=== PATIENT | male | born 1935 | race Caucasian/White ===

== ENCOUNTER → 2018-07-23 | Outpatient (CLI) | payer MEDICARE ==
--- NOTE | 2018-07-23 13:38 | Diagnostic Imaging Report ---
INDICATION: COPD. Dyspnea. Shortness of air. COMPARISON: None. FINDINGS: Frontal and lateral radiographic views of the chest are obtained and show mild cardiomegaly. Pulmonary vasculature is also mildly prominent. There is also diffuse coarse prominence of interstitium. No focal alveolar consolidation is seen. There is no large effusion or pneumothorax. Bony structures show no gross acute abnormalities. IMPRESSION: 1. Diffuse coarse prominence of pulmonary interstitium. While findings could be on a chronic senescent basis, the presence of pulmonary vascular congestion and cardiomegaly also raise suspicion for potential interstitial pulmonary edema. Clinical correlation recommended. Dictated by: Dictated on workstation # [id number]
== END ==
LOC: RAD 12:42
PROVIDERS: ATTEND Family Medicine
DX: J44.9 Chronic obstructive pulmonary disease, unspecified (principal); I51.7 Cardiomegaly
CPT/HCPCS: 71046

== ENCOUNTER → 2018-07-30 | Outpatient (CLI) | payer MEDICARE ==
[~2018-07-30] VITALS: Ht 172.7 cm; Wt 101.2 kg
[~2018-07-30] MED LIST: CATHETER FLUSH 10 ML SYR IV PRN; REGADENOSON 0.4 MG/5 ML SYR (LEXISCAN) IV ONE
[2018-07-30 09:28] VITALS: BP 185/73
[2018-07-30 09:29] VITALS: BP 157/54
--- NOTE | 2018-07-30 14:56 | STRESS TEST ---
DATE OF SERVICE: 07/30/2018 RESTING AND POST REGADENOSON TECHNETIUM-99M TETROFOSMIN SPECT CT IMAGING ORDERING PHYSICIAN: Dr. Carney. PRIMARY PHYSICIAN: Dr. Arauz. CLINICAL DIAGNOSES: Shortness of breath, paroxysmal atrial fibrillation, palpitations. Baseline images were carried out after injection of 10.77 mCi of technetium-99m Tetrofosmin. This was followed by 0.4 mg regadenoson and 30.7 mCi technetium-99m Tetrofosmin for stress imaging. The electrocardiogram showed sinus rhythm at baseline. It did not change significantly with the regadenoson infusion. The patient noted mild shortness of breath following regadenoson infusion, which resolved in a few minutes. Overall, he tolerated the procedure well. Review of images at rest and following stress does not indicate any distinct perfusion defects consistent with significant myocardial ischemia or infarction. Gated images show normal global left ventricular systolic function with normal regional wall motion. Left ventricular ejection fraction is calculated to be 68%. Left ventricular end diastolic volume is 95 mL. TID is absent (1.1). CONCLUSIONS: 1. No evidence of any significant myocardial ischemia or infarction is seen. 2. Normal regional wall motion. 3. Normal global left ventricular systolic function with a calculated ejection fraction 68%. Job ID: [id number] DocumentID: [id number] Dictated Date: 07/30/2018 12:50:33 Television Cable Installer Date: 07/30/2018 14:55:56 Dictated By: MIMI CARNEY MD, MA, FACP, FACC,
== END ==
LOC: CARD 07:35
PROVIDERS: ATTEND Internal Medicine Cardiovascular Disease
DX: R06.02 Shortness of breath (principal); I48.0 Paroxysmal atrial fibrillation; R09.02 Hypoxemia; R00.2 Palpitations
CPT/HCPCS: 78452; 93017

== ENCOUNTER → 2018-07-30 | Outpatient (CLI) | payer MEDICARE ==
[2018-07-30 15:00] LABS: BUN/CREATININE RATIO 15; GFR ESTIMATED > 60
[2018-07-30 15:14] LABS: ABG BASE EXCESS 1.8 MMOL/L (-2.5-2.5); ABG OXYGEN SATURATION 93 % (94-100); ABG PCO2 43 MMHG (35-45); ABG PO2 66 MMHG (79-93); ABG TCO2 27.5 MMOL/L (21.0-31.0); ALLENS TEST POSITIVE; INSPIRED O2 3 L; PATIENT TEMP 98.6; VENTILATOR NO
== END ==
LOC: RT 14:27
PROVIDERS: ATTEND Nurse Practitioner Family
DX: I48.0 Paroxysmal atrial fibrillation (principal); J44.9 Chronic obstructive pulmonary disease, unspecified; R06.02 Shortness of breath; R09.02 Hypoxemia; E66.9 Obesity, unspecified
CPT/HCPCS: 36415; 36600; 82565; 82805; 84520

== ENCOUNTER → 2018-09-11 | Outpatient (CLI) | payer MEDICARE ==
[~2018-09-11] MED LIST changes: -CATHETER FLUSH 10 ML SYR IV PRN; +HOLD METFORMIN - RECEIVED CONTRAST 20 ML VIAL IV SCH; +IOHEXOL 350 MG/ML 100 ML (OMNIPAQUE 350) VIAL IV ONE; -REGADENOSON 0.4 MG/5 ML SYR (LEXISCAN) IV ONE; +RT-ALBUTEROL SULF 2.5 MG/3 ML PRE-MIX VIAL INH ONE
[2018-09-11 12:44] LABS: BUN/CREATININE RATIO 19; CREATININE SERUM 1.13 MG/DL (0.60-1.30); GFR ESTIMATED > 60
--- NOTE | 2018-09-11 17:50 | Diagnostic Imaging Report ---
PROCEDURE: CT chest with contrast only. TECHNIQUE: Multiple contiguous axial images were obtained through the chest after administration of intravenous contrast. Auto Exposure Controls were utilized during the CT exam to meet ALARA standards for radiation dose reduction. INDICATION: Pneumonia. COMPARISON: No priors. FINDINGS: Chronic interstitial changes in the lungs are present with subpleural cyst formation and scarring. No evidence for acute pneumonia superimposed. Septal thickening may reflect in addition to chronic disease an element of interstitial edema as the patient's heart is enlarged, and there is some prominence of the pulmonary vascularity. There is, however, no pleural or pericardial effusion. There is no pneumothorax. No mass or adenopathy. The upper abdomen shows a renal cyst on the left with no acute appearing abnormality. IMPRESSION: Chronic appearing fibrotic interstitial lung disease. Elements of edema superimposed not excluded with cardiomegaly and vascular congestion present. No mass, adenopathy, or effusion. Dictated by: Dictated on workstation # [id number]
== END ==
LOC: RAD 12:08
PROVIDERS: ATTEND Nurse Practitioner Family
DX: I48.0 Paroxysmal atrial fibrillation (principal); J44.9 Chronic obstructive pulmonary disease, unspecified; E66.9 Obesity, unspecified; I51.7 Cardiomegaly
CPT/HCPCS: 36415; 71260; 82565; 84520; 94060; 94726; 94729

== ENCOUNTER 2018-12-26 10:45 | Outpatient (RCR) | payer MEDICARE ==
[2018-10-29 10:45] VITALS: BP 140/70
[2018-10-29 11:50] VITALS: BP 140/62
[2018-10-31 10:45] VITALS: BP 154/60
[2018-10-31 11:41] VITALS: BP 125/50
[2018-11-05 10:30] VITALS: BP 144/58
[2018-11-05 11:35] VITALS: BP 130/62
[2018-11-07 10:30] VITALS: BP 143/78
[2018-11-07 11:30] VITALS: BP 137/60
[2018-11-12 10:40] VITALS: BP 120/62
[2018-11-12 11:37] VITALS: BP 160/60
[2018-11-14 10:37] VITALS: BP 142/60
[2018-11-14 11:45] VITALS: BP 128/58
[2018-11-19 10:45] VITALS: BP 155/60
[2018-11-19 11:42] VITALS: BP 140/60
[2018-11-21 10:15] VITALS: BP 150/60
[2018-11-21 11:20] VITALS: BP 150/70
[2018-11-26 10:45] VITALS: BP 142/70
[2018-11-26 11:45] VITALS: BP 150/60
[2018-11-28 10:30] VITALS: BP 124/56
[2018-11-28 11:40] VITALS: BP 137/60
[2018-12-03 10:40] VITALS: BP 160/60
[2018-12-03 11:30] VITALS: BP 120/56
[2018-12-10 10:45] VITALS: BP 160/60
[2018-12-10 12:00] VITALS: BP 140/70
[2018-12-12 10:50] VITALS: BP 150/40
[2018-12-12 11:58] VITALS: BP 170/60
[2018-12-17 10:43] VITALS: BP 160/72
[2018-12-17 11:45] VITALS: BP 136/56
[2018-12-19 10:40] VITALS: BP 150/40
[2018-12-19 11:40] VITALS: BP 143/60
[2018-12-24 10:45] VITALS: BP 150/70
[2018-12-24 12:00] VITALS: BP 150/50
[2018-12-26 10:45] VITALS: BP 160/70
[2018-12-26 11:46] VITALS: BP 158/60
[2018-12-31 10:40] VITALS: BP 160/60
[2018-12-31 11:45] VITALS: BP 158/50
[2019-01-02 10:40] VITALS: BP 150/60
[2019-01-02 11:45] VITALS: BP 130/60
[2019-01-07 10:45] VITALS: BP 150/60
[2019-01-07 12:00] VITALS: BP 140/60
== END 2019-01-05 | disposition home or self-care (01) ==
LOC: PULM 10:45
PROVIDERS: ATTEND Nurse Practitioner Family
DX: R94.2 Abnormal results of pulmonary function studies (principal); J98.4 Other disorders of lung; R91.8 Other nonspecific abnormal finding of lung field
CPT/HCPCS: 99211

== ENCOUNTER 2019-01-09 10:55 | Outpatient (RCR) | payer MEDICARE ==
[2019-01-09 10:45] VITALS: BP 140/60
[2019-01-09 11:40] VITALS: BP 132/63
== END 2019-04-09 | disposition home or self-care (01) ==
LOC: PULM 10:55
PROVIDERS: ATTEND Nurse Practitioner Family
DX: R94.2 Abnormal results of pulmonary function studies (principal); J98.4 Other disorders of lung; R91.8 Other nonspecific abnormal finding of lung field

== ENCOUNTER 2019-01-23 21:58 | Emergency (ER) | payer MEDICARE ==
[~2019-01-23] VITALS: Ht 172.7 cm; Wt 101.2 kg
--- NOTE | 2019-01-23 22:37 | ED General ---
General Stated Complaint: LOW HEART RATE Source of Information: Patient Exam Limitations: No Limitations History of Present Illness Date Seen by Provider: Jan 23, 2019 Time Seen by Provider: 22:34 Initial Comments To ER with reports of a fall. Patient fell earlier today striking the right side of his upper flank/low chest on something. He is not sure why he fell but denies any preceding dizziness or loss of consciousness. He overall feels fine with the exception of this posterior chest wall pain. He denies any shortness of breath that is out of the ordinary for him, does wear oxygen at 4 L at rest and 8 L with exertion due to emphysema. He is on Eliquis for a-fib. He did not hit his head and denies any neck pain. He is ambulatory into the emergency room without any extremity pain. In route to the hospital daughter noted the heart ra te to be low at about 44. Patient himself denies any complaints in regards to that, no lightheadedness syncope and no chest pain. Timing/Duration: 4-6 Hours Severity: Moderate Allergies and Home Medications Allergies Coded Allergies: No Known Allergies (Unverified Allergy, Unknown, 07/30/18) Patient Home Medication List Home Medication List Reviewed: Yes Review of Systems Review of Systems Constitutional: see HPI EENTM: see HPI Respiratory: see HPI Cardiovascular: see HPI Genitourinary: no symptoms reported Musculoskeletal: see HPI Skin: no symptoms reported Psychiatric/Neurological: No Symptoms Reported Hematologic/Lymphatic: No Symptoms Reported Past Komgxzh-Uozacd-Wyptle Hx Patient Social History Recent Foreign Travel: No Contact w/Someone Who Travel: No Physical Exam Vital Signs Vital Signs - First Documented 01/23/19 22:15 Temp 99.7 Pulse 53 Resp 18 B/P (MAP) 182/78 (112) Pulse Ox 97 Capillary Refill : Height, Weight, BMI Height: 5'8.00" Weight: 225lbs. 0.8oz. 101.544549br; 33.9 BMI Method: General Appearance: No Apparent Distress, WD/WN Eyes: Bilateral Eye Normal Inspection, Bilateral Eye PERRL, Bilateral Eye EOMI Neck: Full Range of Motion, Normal Inspection Respiratory: Chest Non Tender, Lungs Clear, Normal Breath Sounds, No Accessory Muscle Use, No Respiratory Distress, Other (there is no posterior or lateral chest wall tenderness to palpation or ecchymosis or abrasion in the area of pain.) Cardiovascular: Regular Rate, Rhythm, Normal Peripheral Pulses Gastrointestinal: Normal Bowel Sounds, Non Tender, Soft Extremity: Normal Capillary Refill, Normal Inspection Neurologic/Psychiatric: Alert, Oriented x3 Skin: Normal Color, Warm/Dry Progress/Results/Core Measures Suspected Sepsis SIRS Temperature: Pulse: Respiratory Rate: Blood Pressure / Mean: Results/Orders My Orders Orders - ARTEMIO CHAVARRIA APRN Ct Chest/Abdomen Wo (01/23/19 22:18) Vital Signs/I&O Capillary Refill : Departure Communication (Admissions) His chest wall pain is minimal at this time, he was offered pain medication but declined. Daughter still concerned about the heart rate which is about 48-52 atrial fibrillation. Discussed with her this was just an effect of the amiodarone, he is mentating well without chest pain shortness of breath or abnormal blood pressure and this was of no concern at this time. If he develops any concerning symptoms she should return him to the emergency room, both the patient and his daughter agree. Impression Primary Impression: Chest wall contusion Disposition: 01 HOME, SELF-CARE Condition: Stable Departure-Patient Inst. Decision time for Depature: 23:16 Referrals: LEMUEL FREIRE MD (PCP/Family) Primary Care Physician Patient Instructions: Contusion (DC) Add. Discharge Instructions: 1. Tylenol and ibuprofen are fine. Call your template fitter tomorrow to make an appointment for follow-up. Return to ER for any concerns. Images Torso/Trunk 1 - ARTEMIO CHAVARRIA APRN Jan 23, 2019 22:37
--- NOTE | 2019-01-23 23:03 | NUR ---
REPORT TO MYNOR NIEVES FOR CONTINUED CARE
[2019-01-23 23:21] VITALS: BP 157/67
--- NOTE | 2019-01-24 07:20 | Diagnostic Imaging Report ---
PROCEDURE: CT chest and abdomen without contrast. TECHNIQUE: Axial images were obtained from the thoracic inlet through the iliac crest without the administration of intravenous contrast. Auto Exposure Controls were utilized during the CT exam to meet ALARA standards for radiation dose reduction. INDICATION: Bradycardia. FINDINGS: There is mild emphysematous disease. There is some interstitial scarring in the lung bases. There is cardiomegaly. There are coronary artery calcifications. There is no pleural or pericardial fluid. There is no pneumothorax. The thoracic aorta is normal in caliber. There is no pathologically enlarged adenopathy in the chest. There are degenerative changes in the spine. The liver is normal in size without focal lesions. Gallbladder is unremarkable. There is no biliary ductal dilatation. Spleen is normal. Pancreas and adrenal glands are unremarkable. Minimal scarring in both kidneys. There is atherosclerotic calcification of the aorta which is nonaneurysmal. Bowel gas pattern is nonspecific. IMPRESSION: Emphysematous disease with interstitial scarring in the lung bases. Cardiomegaly and coronary artery calcification. Degenerative changes in the spine. No other acute abnormality in the abdomen or pelvis. Dictated by: Dictated on workstation # [id number]
== END 2019-01-23 23:21 | disposition home or self-care (01) ==
LOC: EDUNIT# 21:58 → ER 21:59
DX: S20.221A Contusion of right back wall of thorax, initial encounter (principal); I48.91 Unspecified atrial fibrillation; Z79.01 Long term (current) use of anticoagulants; W19.XXXA Unspecified fall, initial encounter; W22.8XXA Striking against or struck by other objects, initial encounter
CPT/HCPCS: 71250; 74150

== ENCOUNTER 2019-02-06 10:40 | Outpatient (RCR) | payer MEDICARE | END 2019-05-07 | disposition home or self-care (01) | LOC: CARD 10:40 | PROVIDERS: ATTEND Family Medicine | DX: R55 Syncope and collapse (principal); R00.1 Bradycardia, unspecified | CPT/HCPCS: 93225; 93226 ==

== ENCOUNTER → 2019-02-11 | Outpatient (CLI) | payer MEDICARE ==
[2019-02-11 11:36] LABS: BASOPHILS # (AUTO) 0.1 10^3/uL (0.0-0.1); BASOPHILS % (AUTO) 1 % (0-10); EOSINOPHILS # (AUTO) 0.4 10^3/uL (0.0-0.3); EOSINOPHILS % (AUTO) 5 % (0-10); HEMATOCRIT 38 % (40-54); LYMPHOCYTES # (AUTO) 1.6 X 10^3 (1.0-4.0); LYMPHOCYTES % (AUTO) 19 % (12-44); MEAN CORPUSCULAR HEMOGLOBIN 30 PG (25-34); MEAN CORPUSCULAR HGB CONC 32 G/DL (32-36); MEAN CORPUSCULAR VOLUME 94 FL (80-99); MEAN PLATELET VOLUME 8.8 FL (7.4-10.4); MONOCYTES # (AUTO) 1.1 X 10^3 (0.0-1.0); MONOCYTES % (AUTO) 13 % (0-12); NEUTROPHILS # (AUTO) 5.2 X 10^3 (1.8-7.8); NEUTROPHILS % (AUTO) 63 % (42-75); PLATELET COUNT 260 10^3/uL (130-400); RED CELL DISTRIBUTION WIDTH 14.8 % (10.0-14.5); WHITE BLOOD COUNT 8.3 10^3/uL (4.3-11.0)
[2019-02-11 11:53] LABS: ALANINE AMINOTRANSFERASE 52 U/L (0-55); ALBUMIN 4.2 GM/DL (3.2-4.5); ALKALINE PHOSPHATASE 69 U/L (40-136); BILIRUBIN,TOTAL 0.5 MG/DL (0.1-1.0); BUN/CREATININE RATIO 13; CALCIUM 9.2 MG/DL (8.5-10.1); CARBON DIOXIDE 29 MMOL/L (21-32); CHLORIDE 103 MMOL/L (98-107); CHOLESTEROL 196 MG/DL (< 200); CREATININE SERUM 1.12 MG/DL (0.60-1.30); GFR ESTIMATED > 60; GLUCOSE 80 MG/DL (70-105); HDL CHOLESTEROL 43 MG/DL (40-60); MAGNESIUM 1.8 MG/DL (1.6-2.4); POTASSIUM 4.5 MMOL/L (3.6-5.0); SODIUM 140 MMOL/L (135-145); TOTAL PROTEIN 7.1 GM/DL (6.4-8.2); TRIGLYCERIDES 160 MG/DL (<150); VLDL CHOLESTEROL 32 MG/DL (5-40)
== END ==
LOC: LAB 11:21
PROVIDERS: ATTEND Nurse Practitioner Family
DX: I48.0 Paroxysmal atrial fibrillation (principal); I10 Essential (primary) hypertension; I65.29 Occlusion and stenosis of unspecified carotid artery
CPT/HCPCS: 36415; 80053; 80061; 83735; 84443; 85025

== ENCOUNTER → 2019-03-11 | Outpatient (CLI) | payer MEDICARE ==
[2019-03-11 10:57] LABS: BASOPHILS % (AUTO) 0 % (0-10); EOSINOPHILS # (AUTO) 0.2 10^3/uL (0.0-0.3); EOSINOPHILS % (AUTO) 3 % (0-10); HEMATOCRIT 39 % (40-54); HEMOGLOBIN 12.2 G/DL (13.3-17.7); LYMPHOCYTES # (AUTO) 1.5 X 10^3 (1.0-4.0); LYMPHOCYTES % (AUTO) 17 % (12-44); MEAN CORPUSCULAR HEMOGLOBIN 29 PG (25-34); MEAN CORPUSCULAR HGB CONC 32 G/DL (32-36); MEAN CORPUSCULAR VOLUME 93 FL (80-99); MEAN PLATELET VOLUME 9.2 FL (7.4-10.4); MONOCYTES # (AUTO) 1.1 X 10^3 (0.0-1.0); MONOCYTES % (AUTO) 13 % (0-12); NEUTROPHILS # (AUTO) 5.9 X 10^3 (1.8-7.8); NEUTROPHILS % (AUTO) 67 % (42-75); PLATELET COUNT 362 10^3/uL (130-400); RED CELL DISTRIBUTION WIDTH 14.6 % (10.0-14.5); WHITE BLOOD COUNT 8.8 10^3/uL (4.3-11.0)
[2019-03-11 11:31] LABS: ERYTHROCYTE SEDIMENTATION RATE 37 MM/HR (0-30)
== END ==
LOC: LAB 10:37
PROVIDERS: ATTEND Podiatrist Foot & Ankle Surgery
DX: R60.9 Edema, unspecified (principal); R52 Pain, unspecified
CPT/HCPCS: 36415; 84550; 85025; 85652

== ENCOUNTER 2021-01-10 15:04 | Emergency (ER) | payer MEDICAID, MEDICARE ==
[~2021-01-10] VITALS: Ht 172.2 cm; Wt 102.0 kg
--- NOTE | 2021-01-10 15:19 | ED Cough/URI ---
General Chief Complaint: Respiratory Problems Stated Complaint: COUGH; SOB History of Present Illness Date Seen by Provider: Jan 10, 2021 Time Seen by Provider: 15:19 Initial Comments 84-year-old male with past medical history significant for high blood pressure, COPD, sleep apnea and type 2 diabetes presents with complaint of tightness and intermittent pain in his upper abdomen that is worse with coughing. Patient with chronic lung disease and states he has a daily chronic cough which is no different, no worse. Also is on home oxygen chronically and on 8 L, is not requiring any more than normal. States he is regularly tested for Covid and has not been positive. Allergies and Home Medications Allergies Coded Allergies: No Known Allergies (Unverified Allergy, Unknown, 07/30/18) Patient Home Medication List Home Medication List Reviewed: Yes Review of Systems Review of Systems Constitutional: No chills, No fever, No malaise, No weakness EENTM: no symptoms reported Respiratory: cough (chronic); No hemoptysis, No orthopnea, No phlegm; short of breath (chronic, no worse) Cardiovascular: No chest pain, No edema, No palpitations, No syncope Gastrointestinal: No abdominal pain, No loss of appetite, No nausea, No vomiting Musculoskeletal: No back pain, No joint pain Psychiatric/Neurological: Denies Headache, Denies Seizure Past Hxikxgd-Azyrct-Cqufbn Hx Patient Social History Tobacco Use?: No Seasonal Allergies Seasonal Allergies: No Past Medical History Surgeries: Yes (bilateral knee, inguinal hernia (left)) Appendectomy, Orthopedic Respiratory: Yes COPD Cardiac: Yes Atrial Fibrillation Neurological: No Genitourinary: No Gastrointestinal: No Musculoskeletal: No Endocrine: No HEENT: No Cancer: No Psychosocial: No Blood Disorders: No Physical Exam Vital Signs - First Documented 01/10/21 15:08 Temp 36.8 Pulse 124 Resp 24 B/P (MAP) 129/78 (95) Pulse Ox 98 O2 Delivery Room Air Capillary Refill : Height: 5'8.00" Weight: 223lbs. 0.8oz. 101.505461zr; 33.9 BMI Method:Stated General Appearance: WD/WN, no apparent distress HEENT: TMs normal Neck: non-tender, supple Respiratory: chest non-tender, normal breath sounds, no respiratory distress Cardiovascular: tachycardia (sinus tach 110) Gastrointestinal: non tender, soft; No distended, No guarding, No rebound, No tenderness Progress/Results/Core Measures Suspected Sepsis SIRS Temperature: Pulse: Respiratory Rate: Laboratory Tests 01/10/21 15:45: White Blood Count 9.9 Blood Pressure / Mean: Laboratory Tests 01/10/21 15:45: Creatinine 1.19, Platelet Count 300, Total Bilirubin 0.3 Results/Orders Lab Results Laboratory Tests Test 01/10/21 15:45 Range/Units White Blood Count 9.9 4.3-11.0 10^3/uL Red Blood Count 4.42 4.35-5.85 10^6/uL Hemoglobin 12.7 L 13.3-17.7 G/DL Hematocrit 40 40-54 % Mean Corpuscular Volume 91 80-99 FL Mean Corpuscular Hemoglobin 29 25-34 PG Mean Corpuscular Hemoglobin Concent 32 32-36 G/DL Red Cell Distribution Width 16.9 H 10.0-14.5 % Platelet Count 300 130-400 10^3/uL Mean Platelet Volume 10.1 7.4-10.4 FL Neutrophils (%) (Auto) 71 42-75 % Lymphocytes (%) (Auto) 14 12-44 % Monocytes (%) (Auto) 12 0-12 % Eosinophils (%) (Auto) 3 0-10 % Basophils (%) (Auto) 0 0-10 % Neutrophils # (Auto) 7.1 1.8-7.8 X 10^3 Lymphocytes # (Auto) 1.4 1.0-4.0 X 10^3 Monocytes # (Auto) 1.2 H 0.0-1.0 X 10^3 Eosinophils # (Auto) 0.3 0.0-0.3 10^3/uL Basophils # (Auto) 0.0 0.0-0.1 10^3/uL Sodium Level 141 135-145 MMOL/L Potassium Level 4.9 3.6-5.0 MMOL/L Chloride Level 101 98-107 MMOL/L Carbon Dioxide Level 26 21-32 MMOL/L Anion Gap 14 5-14 MMOL/L Blood Urea Nitrogen 22 H 7-18 MG/DL Creatinine 1.19 0.60-1.30 MG/DL Estimat Glomerular Filtration Rate 58 BUN/Creatinine Ratio 18 Glucose Level 216 H 70-105 MG/DL Calcium Level 9.9 8.5-10.1 MG/DL Corrected Calcium 9.7 8.5-10.1 MG/DL Total Bilirubin 0.3 0.1-1.0 MG/DL Aspartate Amino Transf (AST/SGOT) 16 5-34 U/L Alanine Aminotransferase (ALT/SGPT) 19 0-55 U/L Alkaline Phosphatase 71 40-136 U/L Total Protein 7.3 6.4-8.2 GM/DL Albumin 4.2 3.2-4.5 GM/DL My Orders Orders - AMADA PRADO DO Cbc With Automated Diff (01/10/21 15:27) Comprehensive Metabolic Panel (01/10/21 15:27) Acute Abd Series (01/10/21 15:27) Vital Signs/I&O 01/10/21 15:08 Temp 36.8 Pulse 124 Resp 24 B/P (MAP) 129/78 (95) Pulse Ox 98 O2 Delivery Room Air Capillary Refill : Diagnostic Imaging Diagonstic Imaging: Xray Plain Films/CT/US/NM/MRI: chest Comments Date of Exam:01/10/21 ACUTE ABD SERIES INDICATION: Epigastric pain. TECHNIQUE: A PA chest and supine and upright abdominal images were obtained. FINDINGS: There is cardiomegaly with pulmonary vascular congestion and interstitial edema. The bowel gas pattern is normal. There are no pathologic masses or calcifications. There is no intraperitoneal free air. IMPRESSION: Congestive heart failure. Dictated by: Dictated on workstation # [id number] Dict: 01/10/21 1552 Trans: 01/10/21 1600 [id number] Interpreted by: CALIXTO BETH MD Electronically signed by: CALIXTO BETH MD 01/10/21 1600 Departure Impression Primary Impression: Abdominal muscle strain Qualified Codes: S39.011A - Strain of muscle, fascia and tendon of abdomen, initial encounter Disposition: HOME, SELF-CARE Condition: Stable Departure-Patient Inst. Decision time for Depature: 16:28 Referrals: HUGO ABARCA MD (PCP/Family) Primary Care Physician Patient Instructions: Abdominal Muscle Strain (DC) Add. Discharge Instructions: Follow up with Dr Arauz or Dr Abarca in 5 to 7 days if not improving, sooner if worse. All discharge instructions reviewed with patient and/or family. Voiced understanding. AMADA PRADO DO Jan 10, 2021 15:19
--- NOTE | 2021-01-10 15:55 | Diagnostic Imaging Report ---
INDICATION: Epigastric pain. TECHNIQUE: A PA chest and supine and upright abdominal images were obtained. FINDINGS: There is cardiomegaly with pulmonary vascular congestion and interstitial edema. The bowel gas pattern is normal. There are no pathologic masses or calcifications. There is no intraperitoneal free air. IMPRESSION: Congestive heart failure. Dictated by: Dictated on workstation # [id number]
[2021-01-10 15:56] LABS: HEMATOCRIT 40 % (40-54); HEMOGLOBIN 12.7 G/DL (13.3-17.7); MEAN CORPUSCULAR HEMOGLOBIN 29 PG (25-34); MEAN CORPUSCULAR VOLUME 91 FL (80-99); WHITE BLOOD COUNT 9.9 10^3/uL (4.3-11.0)
[2021-01-10 15:57] LABS: BASOPHILS % (AUTO) 0 % (0-10); EOSINOPHILS % (AUTO) 3 % (0-10); LYMPHOCYTES # (AUTO) 1.4 X 10^3 (1.0-4.0); LYMPHOCYTES % (AUTO) 14 % (12-44); MEAN CORPUSCULAR HGB CONC 32 G/DL (32-36); MEAN PLATELET VOLUME 10.1 FL (7.4-10.4); MONOCYTES % (AUTO) 12 % (0-12); NEUTROPHILS # (AUTO) 7.1 X 10^3 (1.8-7.8); NEUTROPHILS % (AUTO) 71 % (42-75); PLATELET COUNT 300 10^3/uL (130-400)
[2021-01-10 15:58] LABS: EOSINOPHILS # (AUTO) 0.3 10^3/uL (0.0-0.3); MONOCYTES # (AUTO) 1.2 X 10^3 (0.0-1.0)
[2021-01-10 16:15] LABS: ALBUMIN 4.2 GM/DL (3.2-4.5); BILIRUBIN,TOTAL 0.3 MG/DL (0.1-1.0); CALCIUM 9.9 MG/DL (8.5-10.1); CREATININE SERUM 1.19 MG/DL (0.60-1.30); POTASSIUM 4.9 MMOL/L (3.6-5.0); TOTAL PROTEIN 7.3 GM/DL (6.4-8.2)
[2021-01-10 16:54] VITALS: BP 120/69
== END 2021-01-10 16:29 | disposition home or self-care (01) ==
LOC: EDUNIT# 15:04 → ER FS 15:06
DX: S39.011A Strain of muscle, fascia and tendon of abdomen, initial encounter (principal); J44.9 Chronic obstructive pulmonary disease, unspecified; G47.30 Sleep apnea, unspecified; E11.9 Type 2 diabetes mellitus without complications; I10 Essential (primary) hypertension; Z20.822 Contact with and (suspected) exposure to COVID-19; X58.XXXA Exposure to other specified factors, initial encounter
CPT/HCPCS: 36415; 74022; 80053; 85025

== ENCOUNTER 2021-06-06 23:50 | Inpatient (IN) | payer MEDICARE ==
[~2021-06-06] VITALS: Ht 172.7 cm; Wt 96.3 kg
[2021-06-07] VITALS (7 sets, daily range): BP systolic 110–148; BP diastolic 68–97
[2021-06-07] MEDS ORDERED: FUROSEMIDE 40 MG/4 ML INJ (LASIX) IVP STA (00:15)
--- NOTE | 2021-06-07 00:15 | ED General ---
General Stated Complaint: LOW O2;LOWER EXTREMITY EDEMA Source of Information: Patient, Family, Group Home Records History of Present Illness Date Seen by Provider: Jun 06, 2021 Time Seen by Provider: 23:57 Initial Comments 85-year-old male with a history of COPD, CHF, atrial fibrillation, diabetes. He has had leg swelling for 2 to 3 weeks and not been able to get in with the [facility] clinic. He has had increasing shortness of breath and again not been able to be seen by the clinic. He uses oxygen at 8 to 10 Lpm by nasal cannula chronically to help with his oxygen. He uses CPAP for sleep apnea at night. He presented to the emergency tonight due to his chronic conditions over the last few weeks. With minimal exertion he was having decreased oxygen. He denies having a fever, chills, increased cough, chest pain, abdominal pain, nausea, vomiting, pain with urination, diarrhea, headache. He states he has chronic postnasal drainage and it is not any different than usual. He reports having a history of atrial fibrillation but that he had been given medicine previously but dropped his heart rate really low and then that had seemed to get him out of atrial fibrillation and he had not had any issues since. He has also not seen cardiology or had any heart tracings or EKGs for a long time. He routinely [facility] test [facility]. He reports that they have all been negative. He has had Covid vaccine. Timing/Duration: Getting Worse (Gradually worsening over the last several week s) Severity: Moderate Modifying Factors: worse with Movement Associated Systoms: No Chest Pain; Cough (Chronic and not worse than usual); No Diaphoresis, No Fever/Chills, No Headaches, No Loss of Appetite, No Malaise, No Nausea/Vomiting, No Rash, No Seizure; Shortness of Air (Chronic but reportedly worsening in the last few weeks); No Syncope Allergies and Home Medications Allergies Coded Allergies: No Known Allergies (Unverified Allergy, Unknown, 07/30/18) Patient Home Medication List Home Medication List Reviewed: Yes Review of Systems Review of Systems Constitutional: see HPI; No diaphoresis, No fever EENTM: No epistaxis, No nose congestion Respiratory: see HPI Cardiovascular: see HPI, edema (Increasing pitting edema to bilateral lower extremities over the last few weeks) Gastrointestinal: No nausea, No vomiting Genitourinary: No dysuria Musculoskeletal: joint pain (Chronic arthritis and joint pains) Skin: No rash Psychiatric/Neurological: Denies Headache Hematologic/Lymphatic: Easy Bleeding (Takes Eliquis), Easy Bruising (Takes Eliquis) Past [id number]-Pkuhej-[id number] Hx Seasonal Allergies Seasonal Allergies: No Past Medical History Surgery/Hospitalization HX: Hypoxia, COPD with abn PFT's, Cardiomegaly, Chronic SOA, A Fib, Hx Bradycardia with syncope Surgeries: Yes (bilateral knee, inguinal hernia (left)) Appendectomy, Orthopedic Respiratory: Yes COPD Cardiac: Yes Atrial Fibrillation Neurological: No Genitourinary: No Gastrointestinal: No Musculoskeletal: No Endocrine: No HEENT: No Cancer: No Psychosocial: No Blood Disorders: No Physical Exam Vital Signs Vital Signs - First Documented Capillary Refill : Height, Weight, BMI Height: 5'8.00" Weight: 223lbs. 0.8oz. [id number]; 34.00 BMI Method:Stated General Appearance: No Apparent Distress, Obese, Other (Patient is joking with the nursing staff) HEENT: PERRL/EOMI, Pharynx Normal Neck: Non Tender, Supple Respiratory: Chest Non Tender, Accessory Muscle Use, Decreased Breath Sounds; No Stridor, No Wheezing Cardiovascular: Normal Peripheral Pulses, Irregularly Irregular, Tachycardia Gastrointestinal: Normal Bowel Sounds, No Pulsatile Mass, Non Tender, Soft Rectal: Deferred Extremity: Normal Capillary Refill, Pedal Edema (2+ pitting edema bilateral lower extremities above his knees) Neurologic/Psychiatric: Alert, Oriented x3 Skin: Normal Color, Warm/Dry Progress/Results/Core Measures Suspected Sepsis SIRS Temperature: Pulse: Respiratory Rate: Laboratory Tests 06/07/21 00:09: White Blood Count 10.5 Blood Pressure / Mean: Laboratory Tests 06/07/21 00:09: Creatinine 1.28, INR Comment 1.3, Platelet Count 322, Total Bilirubin 0.7 Results/Orders Lab Results Laboratory Tests Test 06/07/21 00:09 06/07/21 01:04 06/07/21 01:05 Range/Units White Blood Count 10.5 4.3-11.0 10^3/uL Red Blood Count 4.57 4.30-5.52 10^6/uL Hemoglobin 12.9 L 13.3-17.7 g/dL Hematocrit 42 40-54 % Mean Corpuscular Volume 92 80-99 fL Mean Corpuscular Hemoglobin 28 25-34 pg Mean Corpuscular Hemoglobin Concent 31 L 32-36 g/dL Red Cell Distribution Width 18.7 H 10.0-14.5 % Platelet Count 322 130-400 10^3/uL Mean Platelet Volume 9.7 9.0-12.2 fL Immature Granulocyte % (Auto) 1 % Neutrophils (%) (Auto) 78 H 42-75 % Lymphocytes (%) (Auto) 10 L 12-44 % Monocytes (%) (Auto) 10 0-12 % Eosinophils (%) (Auto) 2 0-10 % Basophils (%) (Auto) 1 0-10 % Neutrophils # (Auto) 8.2 H 1.8-7.8 X 10^3 Lymphocytes # (Auto) 1.0 1.0-4.0 X 10^3 Monocytes # (Auto) 1.0 0.0-1.0 X 10^3 Eosinophils # (Auto) 0.2 0.0-0.3 10^3/uL Basophils # (Auto) 0.1 0.0-0.1 10^3/uL Immature Granulocyte # (Auto) 0.1 0.0-0.1 10^3/uL Prothrombin Time 16.3 H 12.2-14.7 SEC INR Comment 1.3 0.8-1.4 Activated Partial Thromboplast Time 33 24-35 SEC Sodium Level 141 135-145 MMOL/L Potassium Level 4.4 3.6-5.0 MMOL/L Chloride Level 102 98-107 MMOL/L Carbon Dioxide Level 27 21-32 MMOL/L Anion Gap 12 5-14 MMOL/L Blood Urea Nitrogen 26 H 7-18 MG/DL Creatinine 1.28 0.60-1.30 MG/DL Estimat Glomerular Filtration Rate 54 BUN/Creatinine Ratio 20 Glucose Level 177 H 70-105 MG/DL Calcium Level 9.3 8.5-10.1 MG/DL Corrected Calcium 9.2 8.5-10.1 MG/DL Magnesium Level 1.9 1.6-2.4 MG/DL Total Bilirubin 0.7 0.1-1.0 MG/DL Aspartate Amino Transf (AST/SGOT) 16 5-34 U/L Alanine Aminotransferase (ALT/SGPT) 16 0-55 U/L Alkaline Phosphatase 72 40-136 U/L Troponin I < 0.30 <0.30 NG/ML C-Reactive Protein 1.81 H <0.50 MG/DL Pro-B-Type Natriuretic Peptide 2967.0 H <75.0 PG/ML Total Protein 7.2 6.4-8.2 GM/DL Albumin 4.1 3.2-4.5 GM/DL Influenza Type A Antigen NEGATIVE NEGATIVE Influenza Type B Antigen NEGATIVE NEGATIVE Urine Color YELLOW Urine Clarity CLEAR Urine pH 6.0 5-9 Urine Specific [place] 1.020 1.016-1.022 Urine Protein 1+ H NEGATIVE Urine Glucose (UA) NEGATIVE NEGATIVE Urine Ketones NEGATIVE NEGATIVE Urine Nitrite NEGATIVE NEGATIVE Urine Bilirubin NEGATIVE NEGATIVE Urine Urobilinogen 0.2 < = 1.0 MG/DL Urine Leukocyte Esterase NEGATIVE NEGATIVE Urine RBC (Auto) NEGATIVE NEGATIVE Urine RBC RARE /HPF Urine WBC RARE /HPF Urine Squamous Epithelial Cells RARE /HPF Urine Crystals NONE /LPF Urine Bacteria NEGATIVE /HPF Urine Casts PRESENT /LPF Urine Hyaline Casts 0-2 H /LPF Urine Mucus MODERATE H /LPF Urine Culture Indicated NO My Orders Orders - DEVON PRATHER MD Monitor-Rhythm Ecg Trace Only (06/07/21 00:15) Ed Iv/Invasive Line Start (06/07/21 00:15) Cbc With Automated Diff (06/07/21 00:15) Comprehensive Metabolic Panel (06/07/21 00:15) Crp Fs (06/07/21 00:15) Troponin I Fs (06/07/21 00:15) Protime With Inr (06/07/21 00:15) Partial Thromboplastin Time (06/07/21 00:15) Ekg Tracing (06/07/21 00:15) Arterial Blood Gas (06/07/21 00:15) Covid 19 Inhouse Test (06/07/21 00:15) Influenza A & B Antigens (06/07/21 00:15) Probnp Fs (06/07/21 00:15) Chest 1 View Ap/Pa Only (06/07/21 00:15) Magnesium (06/07/21 00:15) Isolation Central Supply Req (06/07/21 00:15) Furosemide Injection (Lasix Injection) (06/07/21 00:15) Ua Culture If Indicated (06/07/21 00:15) Diltiazem Injection (Cardizem Injection) (06/07/21 00:15) O2 (06/07/21 00:15) Vital Signs/I&O 06/06/21 06/06/21 06/06/21 06/07/21 23:55 23:55 23:55 02:23 Temp 36.3 Pulse 129 90 Resp 28 26 B/P (MAP) 138/96 (110) 126/88 Pulse Ox 80 95 95 O2 Delivery Nasal Cannula Nasal Cannula OxyMask OxyMask O2 Flow Rate 8.00 8.00 15.00 15.00 Capillary Refill : Progress Note #1: Progress Note Obtain electrocardiogram and place patient on cardiac telemetry monitoring. Obtain basic labs and chest x-ray. With his increased edema in his legs and signs of heart failure will give 80 mg IV Lasix to help try and diurese him. For his hypoxia placed on oxygen mask at 15 L which brought him up over 90%. His heart rate was atrial fibrillation 120s so we'll order a dose of diltiazem to help bring down his heart rate. He reports having a negative Covid swab earlier today prescribed [place]. Will repeat a swab to check for influenza and Covid in case he needs to be admitted Progress Note #2: Progress Note His chest x-ray shows signs of heart failure similar to the previous films. His electrocardiogram showed atrial fibrillation without ST elevation. His flu was negative. His CBC did not show acute significant abnormality. His chemistry panel had mild elevation of creatinine to 1.28. His troponin was 0. His proBNP is elevated at 2967. His glucose was slightly elevated to 177. He had over 500 mL of urine output with the dose of Lasix. His heart rate did improve down into the 80s with the dose of diltiazem. With minimal exertion he would have an ox ygen desaturation down into the mid 80s. This quickly bounced back up into the 90s with rest. The ABG was not obtained as patient was not tolerating the blood draw and refused further attempts Progress Note #3: Progress Note Counseled patient and daughter on his test results. Since he was still easily winded and his oxygen saturation was dropping with minimal exertion as well as he was requiring extra oxygen beyond what he had available at home with his concentrator I recommended that he be admitted for diuresis and cardiology evaluation. He was interested in staying in a local hospital rather than being admitted through the [facility]. I contacted Dr. Zhang for the hospitalist service and she accepted the patient for admission. Will consult Dr. Odom in the morning for assistance with the diuresis. ECG Initial ECG Impression Date: Jun 06, 2021 Initial ECG Impression Time: 23:57 Initial ECG Rate: 113 Initial ECG Rhythm: A Fib/Flutter Initial ECG Comparisson: No Previous ECG Available Comment Atrial fibrillation with a heart rate of 113 bpm. Left axis deviation. Q waves in leads V1 and V2. QT interval 340 ms with a QTc interval 467 ms. No prior tracing available for comparison. No acute ST elevation. Diagnostic Imaging Diagonstic Imaging: Xray Plain Films/CT/US/NM/MRI: chest Comments On my review of his 1 view chest x-ray he has increased pulmonary vascular congestion for CHF Reviewed: Reviewed by Me Departure Communication (Admissions) Time/Spoke to Admitting Phy: 01:50 d/w Dr. Zhang for Hospitalist service since his primary is Dr. Hugo Abarca in [place]. He was wanting to be admitted locally so will admit for CHF exacerbation and hypoxia. Consult Dr. Odom in am. Pt is a DNR. Impression Primary Impression: Acute exacerbation of CHF (congestive heart failure) Qualified Codes: I50.9 - Heart failure, unspecified Additional Impressions: Hypoxia Dyspnea on exertion Disposition: 30 STILL A PATIENT Condition: Stable Admissions Decision to Admit Reason: Admit from ER (General) Decision to Admit/Date: Jun 07, 2021 Time/Decision to Admit Time: 01:50 Departure-Patient Inst. Referrals: HUGO ABARCA MD (PCP/Family) Primary Care Physician DEVON PRATHER MD Jun 07, 2021 00:14
[2021-06-07 00:35] LABS: INR 1.3 (0.8-1.4); PROTHROMBIN TIME PATIENT 16.3 SEC (12.2-14.7)
[2021-06-07 00:41] LABS: HEMATOCRIT 42 % (40-54); HEMOGLOBIN 12.9 g/dL (13.3-17.7); MEAN CORPUSCULAR HEMOGLOBIN 28 pg (25-34); MEAN CORPUSCULAR HGB CONC 31 g/dL (32-36); MEAN CORPUSCULAR VOLUME 92 fL (80-99); MEAN PLATELET VOLUME 9.7 fL (9.0-12.2); PLATELET COUNT 322 10^3/uL (130-400); WHITE BLOOD COUNT 10.5 10^3/uL (4.3-11.0)
[2021-06-07 00:42] LABS: BASOPHILS # (AUTO) 0.1 10^3/uL (0.0-0.1); BASOPHILS % (AUTO) 1 % (0-10); EOSINOPHILS # (AUTO) 0.2 10^3/uL (0.0-0.3); EOSINOPHILS % (AUTO) 2 % (0-10); LYMPHOCYTES % (AUTO) 10 % (12-44); MONOCYTES % (AUTO) 10 % (0-12); NEUTROPHILS # (AUTO) 8.2 X 10^3 (1.8-7.8); NEUTROPHILS % (AUTO) 78 % (42-75)
[2021-06-07 00:55] LABS: ALANINE AMINOTRANSFERASE 16 U/L (0-55); ALKALINE PHOSPHATASE 72 U/L (40-136); BILIRUBIN,TOTAL 0.7 MG/DL (0.1-1.0); BUN/CREATININE RATIO 20; CALCIUM 9.3 MG/DL (8.5-10.1); CARBON DIOXIDE 27 MMOL/L (21-32); CHLORIDE 102 MMOL/L (98-107); CREATININE SERUM 1.28 MG/DL (0.60-1.30); GFR ESTIMATED 54; GLUCOSE 177 MG/DL (70-105); POTASSIUM 4.4 MMOL/L (3.6-5.0); SODIUM 141 MMOL/L (135-145)
[2021-06-07 00:56] LABS: ALBUMIN 4.1 GM/DL (3.2-4.5); TOTAL PROTEIN 7.2 GM/DL (6.4-8.2)
[2021-06-07 00:57] LABS: MAGNESIUM 1.9 MG/DL (1.6-2.4)
[2021-06-07 01:15] LABS: BILIRUBIN,URINE NEGATIVE (NEGATIVE); CLARITY,URINE CLEAR; COLOR,URINE YELLOW; GLUCOSE, URINE (UA) NEGATIVE (NEGATIVE); KETONES,URINE NEGATIVE (NEGATIVE); LEUKOCYTE ESTERASE ,URINE NEGATIVE (NEGATIVE); NITRITE,URINE NEGATIVE (NEGATIVE); PROTEIN,URINE 1+ (NEGATIVE)
[2021-06-07 01:20] LABS: BACTERIA,URINE NEGATIVE /HPF; HYALINE CASTS, URINE 0-2 /LPF; RBC,URINE RARE /HPF; SQUAMOUS EPITHELIAL CELL,UR RARE /HPF; WBC,URINE RARE /HPF
--- NOTE | 2021-06-07 04:18 | Diagnostic Imaging Report ---
EXAMINATION: Chest 1 view HISTORY: cough, short of breath, leg edema COMPARISON: 01/10/2021 FINDINGS: Stable enlargement of the cardiac silhouette and prominence of the pulmonary vasculature. There are low lung volumes with patchy interstitial opacities within both lungs. No pleural effusion or pneumothorax. The osseous structures are intact. IMPRESSION: 1. Cardiomegaly with mild diffuse interstitial opacities which is secondary to pulmonary edema although atelectasis or atypical infection would be within the differential. Dictated by: Dictated on workstation # [id number]
[2021-06-07] MEDS ORDERED: RT-ALBUTEROL SULF 2.5 MG/3 ML PRE-MIX VIAL INH PRN (04:30)
[2021-06-07] MEDS ORDERED: ACETAMINOPHEN 325 MG TABLET PO PRN (05:30)
[2021-06-07] MEDS ORDERED: ONDANSETRON 4 MG/2 ML (SDV) Z0FRAN IV PRN (05:30)
[2021-06-07] MEDS: inSUlin ASPART (NovoLOG) 1 UNIT/0.01 ML (CHARGE PER UNIT) SC SCH ×4 (05:48→21:04)
[2021-06-07] MEDS: CATHETER FLUSH 10 ML SYR IV SCH ×3 (05:48→19:45)
[2021-06-07 06:05] LABS: BASOPHILS # (AUTO) 0.1 10^3/uL (0.0-0.1); BASOPHILS % (AUTO) 1 % (0-10); EOSINOPHILS # (AUTO) 0.2 10^3/uL (0.0-0.3); EOSINOPHILS % (AUTO) 2 % (0-10); HEMATOCRIT 41 % (40-54); HEMOGLOBIN 12.9 g/dL (13.3-17.7); LYMPHOCYTES # (AUTO) 1.4 10^3/uL (1.0-4.0); LYMPHOCYTES % (AUTO) 14 % (12-44); MEAN CORPUSCULAR HEMOGLOBIN 29 pg (25-34); MEAN CORPUSCULAR HGB CONC 31 g/dL (32-36); MEAN CORPUSCULAR VOLUME 92 fL (80-99); MEAN PLATELET VOLUME 10.1 fL (9.0-12.2); MONOCYTES # (AUTO) 1.3 10^3/uL (0.0-1.0); MONOCYTES % (AUTO) 12 % (0-12); NEUTROPHILS # (AUTO) 7.4 10^3/uL (1.8-7.8); NEUTROPHILS % (AUTO) 71 % (42-75); PLATELET COUNT 305 10^3/uL (130-400); WHITE BLOOD COUNT 10.4 10^3/uL (4.3-11.0)
[2021-06-07 06:26] LABS: POTASSIUM 4.3 MMOL/L (3.6-5.0)
[2021-06-07 06:27] LABS: CALCIUM 9.3 MG/DL (8.5-10.1)
[2021-06-07 06:32] LABS: CREATININE SERUM 1.24 MG/DL (0.60-1.30)
[2021-06-07] MEDS: RT-ALBUTEROL/IPRATROPIUM 3 ML (DUONEB) VIAL INH SCH ×5 (07:35→21:17)
[2021-06-07] MEDS ORDERED: RT--FLUTICASONE/SALMETEROL 232-14 (AIRDUO RespiCLICK) IH SCH (08:00)
[2021-06-07] MEDS ORDERED: UMECLIDINIUM BROMIDE (INCRUSE ELLIPTA) 7'S IH SCH (08:00)
[2021-06-07] MEDS: FUROSEMIDE 40 MG/4 ML INJ (LASIX) IV SCH (08:32)
--- NOTE | 2021-06-07 08:46 | History & Physical ---
[facility] 06/07/21 0846: History of Present Illness History of Present Illness Reason for visit/HPI CC: Acute Exacerbation of CHF HPI: Pleasant 85 yo M with a history of CHF, COPD oxygen dependent, Afib, and Insulin dependent type 2 DM that was admitted to the hospital for acute exacerbation of CHF. Patient presented to the ER for progressive worsening of LE edema. States that this began 3 weeks ago and unsure what caused it as he is c ompliant with his medication with the help of his daughter. States that the swelling does go down during the night when he is sleeping, but gets worse throughout the day. During this time, he has also been experiencing increasing fatigue, increasing work with respiration, and dyspnea with exertion (less than 10 feet of walking). Base line Oxygen requirement is 8-10 L of O2 and is c urrently on 15 L. Chest x-ray revealed pulmonary edema. Pro-BNP was 2967 with negative troponins. Patient has never been hospitalized before for this issue. Patient denied fevers, chills, abdominal pain, nausea, and vomiting. Date of Admission Jun 07, 2021 at 03:40 Date Seen by a Provider: Jun 07, 2021 Time Seen by a Provider: 08:00 I consulted on this patient on 06/07/21 08:34 Attending Physician Geri Gonzalez DO Admitting Physician Sherri Zambrano MD Consult Acute exacerbation of CHF Allergies and Home Medications Allergies Coded Allergies: No Known Allergies (Unverified Allergy, Unknown, 07/30/18) Patient Home Medication List Home Medication List Reviewed: Yes Apixaban (Eliquis) 5 Mg Tablet, 5 MG PO BID, (Reported) Entered as Reported by: KYLE MCCLELLAND on 06/07/211519 Last Action: Continued Ascorbate Calcium (Vitamin C) 500 Mg Tablet, 500 MG PO BID, (Reported) Entered as Reported by: KYLE MCCLELLAND on 06/07/211519 Last Action: Held Cholecalciferol (Vitamin D3) (Vitamin D3) 25 Mcg Capsule, 25 MCG PO DAILY, (Reported) Entered as Reported by: KYLE MCCLELLAND on 06/07/211519 Last Action: Held Cinnamon Bark (Cinnamon) 500 Mg Capsule, 500 MG PO BID, (Reported) Entered as Reported by: KYLE MCCLELLAND on 06/07/211519 Last Action: Held Fluticasone Propion/Salmeterol (Wixela 500-50 Inhub) 1 Each Blst.w.dev, 1 EACH IH BID, (Reported) Entered as Reported by: KYLE MCCLELLAND on 06/07/211519 Last Action: Converted Furosemide (Furosemide) 20 Mg Tablet, 20 MG PO DAILY, (Reported) Entered as Reported by: KYLE MCCLELLAND on 06/07/211519 Last Action: Held Insulin Detemir (Levemir Flextouch) 100 Unit/1 Ml Insuln.pen, 25 UNIT SQ HS, (Reported) Entered as Reported by: KYLE MCCLELLAND on 06/07/211519 Last Action: Converted Losartan Potassium (Losartan Potassium) 50 Mg Tablet, 25 MG PO DAILY, (Reported) Entered as Reported by: KYLE MCCLELLAND on 06/07/211519 Last Action: Held Metformin HCl (Metformin HCl) 1,000 Mg Tablet, 1,000 MG PO BID, (Reported) Entered as Reported by: KYLE MCCLELLAND on 06/07/211519 Last Action: Held Metoprolol Tartrate (Metoprolol Tartrate) 25 Mg Tablet, 12.5 MG PO BID, (Reported) Entered as Reported by: KYLE MCCLELLAND on 06/07/211519 Last Action: Held Montelukast Sodium (Montelukast Sodium) 10 Mg Tablet, 10 MG PO HS, (Reported) Entered as Reported by: KYLE MCCLELLAND on 06/07/211519 Last Action: Continued Sodium Chloride ([place] Saline) 50 Ml [place], 1 SPRAY NS QID PRN for DRY NOSE, (Reported) Entered as Reported by: KYLE MCCLELLAND on 06/07/211519 Last Action: Continued Sodium Chloride/Aloe Vera ([place] Saline Nasal Gel) 14.1 Gm Gel..gram., 1 APPLIC NS TID PRN for DRY NOSE, (Reported) Entered as Reported by: KYLE MCCLELLAND on 06/07/211519 Last Action: Continued Tiotropium [place] (Spiriva Respimat 2.5MCG/ACTUATION) 4 Gm Mist.inhal, 2 PUFF IH DAILY, (Reported) Entered as Reported by: KYLE MCCLELLAND on 06/07/211519 Last Action: Converted Vit C/E/Zn/Coppr/Lutein/Zeaxan (Preservision Areds 2 Softgel) 1 Each Capsule, 2 EACH PO DAILY, (Reported) Entered as Reported by: KYLE MCCLELLAND on 06/07/21 1520 Last Action: Held Past Pwtpkpn-Kvaypy-Dhzhyj Hx Patient Social History Tobacco Use?: Yes Tobacco type used: Cigarettes Smoking Status: Former Smoker Substance use?: No Alcohol Use?: No Pt feels they are or have been: No Immunizations Up To Date Date of Influenza Vaccine: Mar 04, 2022 First/Initial COVID19 Vaccinat: 06/12/20 Second COVID19 Vaccination Bala: 07/16/20 Tetanus Booster (TDap): Unknown Seasonal Allergies Seasonal Allergies: No Current Status Advance Directives: No Advance Directive Location: Copy placed in chart Communicates: Verbally Primary Language: Montserratian Preferred Spoken Language: Montserratian Is interpretation needed?: No Sensory deficits: Vision impairment Implanted or Applied Medical D: None Past Medical History Surgeries: Abdominal (hernia repair), Appendectomy, Orthopedic COPD (oxygen dependent) Atrial Fibrillation Macular Degeneration Blood Disorders: No Family Medical History Reviewed Nursing Family Hx Cancer (Breast cancer - Mother), Other Conditions/Hx (Father of unknown vascular issue) Review of Systems Constitutional: No chills, No fever EENTM: No ear pain, No eye pain Respiratory: cough, dyspnea on exertion, short of breath Cardiovascular: No chest pain, No palpitations Gastrointestinal: No abdominal pain, No nausea, No vomiting Genitourinary: No incontinence, No pain Musculoskeletal: No joint swelling; other (Joint Erythema) Skin: No change in color, No dryness Psychiatric/Neurological: Denies Headache, Denies Numbness, Denies Tingling No history of bruising or bleeding Physical Exam Vital Signs Vital Signs - First Documented Capillary Refill : Less Than 3 Seconds Height, Weight, BMI Height: 5'8.00" Weight: 223lbs. 0.8oz. 101.307370gl; 35.80 BMI Method:Stated General Appearance: No Apparent Distress, WD/WN Eyes: Bilateral Eye Normal Inspection (no gross deformities, wears spectacles), Bilateral Eye PERRL HEENT: PERRL/EOMI, Normal ENT Inspection (no gross deformities) Neck: Supple, Tender Lateral (Muscular origin, and reproducible on palpation) Respiratory: Chest Non Tender, No Accessory Muscle Use, No Respiratory Distress, Crackles (bilaterally), Other (Requirng High Flow Nasal Cannula) Cardiovascular: Normal Peripheral Pulses (Radial Pusles bilaterally), Irregularly Irregular, Other (Normal Rate) Gastrointestinal: Non Tender, Soft Rectal: Deferred Back: Normal Inspection, No Vertebral Tenderness Extremity: Non Tender, No Calf Tenderness, Pedal Edema (+3 edema bilaterally), Swelling (LE bilaterally) Neurologic/Psychiatric: Alert, Oriented x3, Normal Mood/Affect Skin: Normal Color, Warm/Dry, Other (LE edema) Lymphatic: No Adenopathy (posterior auricular or supraclavicular) Assessment/Plan Assessment and Plan Acute exacerbation of CHF Possible Pre-renal azotemia secondary to CHF Pulmonary Edema O2 Dependent COPD (8-10 L) Afib Insulin dependent DM Possible ARUNA Possible CKD secondary to DM LE edema Increased BMI (35.8) Former Smoker Consult Cardiology Continue to monitor Respiratory status. If patient declines, Follow up with Chest X-ray AM Chest x-ray TSH levels Continue home medications Possible Echocardiogram Continue 80 mg of Lasix, may need to switch to Bumex, if patient does not respond appropriately Low Sodium Diet Consult PT/OT DVT prophylaxis with SCDs and Eliquis Admission Diagnosis Admission Status: Inpatient Order (span 2 midnights) GERI GONZALEZ 06/08/21 6396: History of Present Illness History of Present Illness Reason for visit/HPI CC: SOB HPI: 85 yr old WM. Hx of COPD, oxygen dependent at home of 8 L and CHF Pt presented from [facility] ER with complaints of SOB and edema. Pt was given IV Lasix and cardiology was consulted. Pt is on inhalers for COPD and has had a 3 week history of dyspnea. Pt lives with his daughter and she takes care of his medications. Pt refuses ABG. I ordered an echocardiogram and I spoke with Dr. Odom. Pt does feel less SOB and less edema. Allergies and Home Medications Allergies Coded Allergies: No Known Allergies (Unverified Allergy, Unknown, 07/30/18) Patient Home Medication List Home Medication List Reviewed: Yes Apixaban (Eliquis) 5 Mg Tablet, 5 MG PO BID, (Reported) Entered as Reported by: KYLE MCCLELLAND on 06/07/21 1520 Last Action: Continued Ascorbate Calcium (Vitamin C) 500 Mg Tablet, 500 MG PO BID, (Reported) Entered as Reported by: KYLE MCCLELLAND on 06/07/211519 Last Action: Held Cholecalciferol (Vitamin D3) (Vitamin D3) 25 Mcg Capsule, 25 MCG PO DAILY, (Reported) Entered as Reported by: KYLE MCCLELLAND on 06/07/211519 Last Action: Held Cinnamon Bark (Cinnamon) 500 Mg Capsule, 500 MG PO BID, (Reported) Entered as Reported by: KYLE MCCLELLAND on 06/07/211519 Last Action: Held Fluticasone Propion/Salmeterol (Wixela 500-50 Inhub) 1 Each Blst.w.dev, 1 EACH IH BID, (Reported) Entered as Reported by: KYLE MCCLELLAND on 06/07/211519 Last Action: Converted Furosemide (Furosemide) 20 Mg Tablet, 20 MG PO DAILY, (Reported) Entered as Reported by: KYLE MCCLELLAND on 06/07/211519 Last Action: Held Insulin Detemir (Levemir Flextouch) 100 Unit/1 Ml Insuln.pen, 25 UNIT SQ HS, (Reported) Entered as Reported by: KYLE MCCLELLAND on 06/07/211519 Last Action: Converted Losartan Potassium (Losartan Potassium) 50 Mg Tablet, 25 MG PO DAILY, (Reported) Entered as Reported by: KYLE MCCLELLAND on 06/07/211519 Last Action: Held Metformin HCl (Metformin HCl) 1,000 Mg Tablet, 1,000 MG PO BID, (Reported) Entered as Reported by: KYLE MCCLELLAND on 06/07/211519 Last Action: Held Metoprolol Tartrate (Metoprolol Tartrate) 25 Mg Tablet, 12.5 MG PO BID, (Reported) Entered as Reported by: KYLE MCCLELLAND on 06/07/211519 Last Action: Held Montelukast Sodium (Montelukast Sodium) 10 Mg Tablet, 10 MG PO HS, (Reported) Entered as Reported by: KYLE MCCLELLAND on 06/07/211519 Last Action: Continued Sodium Chloride ([place] Saline) 50 Ml [place], 1 SPRAY NS QID PRN for DRY NOSE, (Reported) Entered as Reported by: KYLE MCCLELLAND on 06/07/211519 Last Action: Continued Sodium Chloride/Aloe Vera ([place] Saline Nasal Gel) 14.1 Gm Gel..gram., 1 APPLIC NS TID PRN for DRY NOSE, (Reported) Entered as Reported by: KYLE MCCLELLAND on 06/07/211519 Last Action: Continued Tiotropium [place] (Spiriva Respimat 2.5MCG/ACTUATION) 4 Gm Mist.inhal, 2 PUFF IH DAILY, (Reported) Entered as Reported by: KYLE MCCLELLAND on 06/07/211519 Last Action: Converted Vit C/E/Zn/Coppr/Lutein/Zeaxan (Preservision Areds 2 Softgel) 1 Each Capsule, 2 EACH PO DAILY, (Reported) Entered as Reported by: KYLE MCCLELLAND on 06/07/211519 Last Action: Held Past Ekcwqis-Kdlrtc-Ovqjab Hx Patient Social History Marrital Status: single Employed/Student: retired Tobacco Use?: No Tobacco type used: Cigarettes Smoking Status: Former Smoker Past Medical History Surgeries: Abdominal (hernia repair), Appendectomy, Orthopedic COPD (oxygen dependent) Atrial Fibrillation, Cardiomyopathy, Chronic Edema/Swelling, High Cholesterol, Hypertension Diabetes, Insulin dep Macular Degeneration Review of Systems Constitutional: see HPI, malaise, weakness EENTM: no symptoms reported Respiratory: dyspnea on exertion, short of breath Cardiovascular: no symptoms reported Gastrointestinal: no symptoms reported Genitourinary: no symptoms reported Musculoskeletal: no symptoms reported Skin: no symptoms reported Psychiatric/Neurological: No Symptoms Reported All Other Systems Reviewed Negative Unless Noted: Yes Physical Exam General Appearance: No Apparent Distress, WD/WN, Chronically ill, Obese Eyes: Bilateral Eye Normal Inspection, Bilateral Eye PERRL, Bilateral Eye EOMI HEENT: PERRL/EOMI, Normal ENT Inspection, Pharynx Normal Neck: Full Range of Motion, Normal Inspection, Non Tender, Supple, Carotid Bruit Respiratory: Chest Non Tender, No Accessory Muscle Use, No Respiratory Distress, Crackles (bilaterally), Other (Requirng High Flow Nasal Cannula) Cardiovascular: No Gallop, No JVD, No Murmur, Normal Peripheral Pulses, Irr egularly Irregular, Other (Normal Rate) Gastrointestinal: Normal Bowel Sounds, No Organomegaly, No Pulsatile Mass, Non Tender, Soft Back: Normal Inspection, No CVA Tenderness, No Vertebral Tenderness Extremity: Normal Capillary Refill, Normal Inspection, Normal Range of Motion, Non Tender, No Calf Tenderness, Pedal Edema (+3 edema bilaterally), Swelling (LE bilaterally) Neurologic/Psychiatric: Alert, Oriented x3, No Motor/Sensory Deficits, Normal Mood/Affect Skin: Normal Color, Warm/Dry Lymphatic: No Adenopathy Assessment/Plan Assessment and Plan Assessment: Acute on chronic respiratory failure Acute exacerbation of congestive heart failure Acute exacerbation of COPD Atrial fibrillation Diabetes Chronic Kidney Disease Presumed BHARATH Plan: IV Lasix Cardiology ECHO Home meds Supportive care PT and OT Problems: (1) Acute on chronic heart failure with preserved ejection fraction (HFpEF) (2) Permanent atrial fibrillation (3) Primary hypertension Admission Diagnosis Admission Status: Inpatient Order (span 2 midnights) Reason for Inpatient Admission: CHF Supervisory-Addendum Brief Verification & Attestation Participated in pt care: history, MDM, physical Personally performed: exam, history, MDM, supervision of care Care discussed with: Medical Student Procedures: n/a Results interpretation: Verified all documentation Verification and Attestation of Medical Student E/M Service A medical student performed and documented this service in my presence. I reviewed and verified all information documented by the medical student and made modifications to such information, when appropriate. I personally performed the physical exam and medical decision making. Geri Gonzalez, Jun 08, 2021,05:47 DAVONTE PERAZA STUD Jun 07, 2021 08:46 GERI GONZALEZ DO Jun 08, 2021 05:47
[2021-06-07] MEDS ORDERED: APIXABAN 5 MG (ELIQUIS) TABLET PO SCH (09:00)
--- NOTE | 2021-06-07 13:39 | Occupational Therapy Eval ---
OT Evaluation-General/PLF Medical Diagnosis Admission Date Jun 07, 2021 at 03:40 Medical Diagnosis: CHF Onset Date: Jun 06, 2021 Therapy Diagnosis Therapy Diagnosis: Impaired endurance, increased oxygen needs, reduced adl status Height/Weight Height (Feet): 5 Height (Inches): 8.00 Weight (Pounds): 223 Weight (Ounces): 0.8 Precautions Precautions/Isolations: Fall Prevention, Standard Precautions Referral Physician: Leatha Referral Reason: Evaluation/Treatment Medical History Pertinent Medical History: Atrial Fib, COPD, Heart Failure Additional Medical History oxygen dependent: 8-10 L at baseline, CPAP at night Current History Presents to ER with progressive worsening of LE edema. Chest x-ray revealed pulmonary edema. Reviewed History: Yes Social History Home: Assisted Living Current Living Status: Alone Entry Into Home: Level Entry Pt lives in assisted living. Reports assist with bathing (back and feet). Facil ity provides 1 meal a day and manages cleaning/laundry. Dtr provides transportation and grocery shopping. Pt cooks simple microwavable meals for other meals. He uses a 4ww and requires 8-10L at baseline. ADL-Prior Level of Function SCALE: Activities may be completed with or without assistive devices. 6-Juubfgqvzy-ekrfbvd completes the activity by him/herself with no assistance from a helper. 5-Set-up or Clean-up Assistance-helper sets up or cleans up; patient completes activity. [place] assists only prior to or following the activity. 4-Supervision or Touching Assistance-helper provides verbal cues and/or touching/steadying and/or contact guard assistance as patient completes activity. Assistance may be provided throughout the activity or intermittently. 3-Partial/Moderate Assistance-helper does LESS THAN HALF the effort. Bethany lifts, holds or supports trunk or limbs, but provides less than half the effort. 2-Substantial/Maximal Assistance-helper does MORE THAN HALF the effort. [place] lifts or holds trunk or limbs and provides more than half the effort. 4-Adhalbsex-kjtutd does ALL the effort. Patient does none of the effort to complete the activity. Or, the assistance of 2 or more helpers is required for the patient to complete the activity. If activity was not attempted, code reason: 7-Patient Refused. 9-Not Applicable-not attempted and the patient did not perform the activity before the current illness, exacerbation or injury. 10-Not Attempted due to Environmental Limitations-(lack of equipment, weather restraints, etc.). 88-Not Attempted due to Medical Conditions or Safety Concerns. Self Care: Needed Some Help Functional Cognition: Needed Some Help DME/Equipment: Bath Chair, Grab Bars, Shower Drive Self: No OT Current Status Subjective Denies pain, agreeable to treatment. Appearance Pt returned to supine, all needs within reach and daughter in room. Mental Status/Objective Patient Orientation: Person, Place, Situation Attachments: IV, Oxygen Current Glasses/Contacts: Yes Hand Dominance: Left Upper Extremity ROM WNL Upper Extremity Strength 3+/5 grossly ADL-Treatment Eating (QC): 5 Lower Body Dressing (QC): 4 On/Off Footwear (QC): 4 Toileting Hygiene (QC): 4 (per clinical judgment) Supine>sit: min A. Able to perform donning of socks with use of cross over method and extra effort. Sit<>stand: CGA. Pt ambulated ~10 feet within room with use of walker and CGA. SOA notable with minimal exertion. Extra time to recover. Pt on 15L with activity due to oxygen tank only giving options of 10 or 15L. Returned to 12L once in bed. 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 2=Patient will verbalize/demonstrate understanding of assistive devices/m odifications for ADL. 3=Patient will improve strength/tolerance for activity to enable patient to perform ADL's. OT Education/Plan Problem List/Assessment Assessment: Decreased Activ Tolerance, Decreased UE Strength, Edema, Impaired Funct Balance, Impaired Self-Care Skills Discharge Recommendations Plan/Recommendations: Continue POC Target Placement Home vs home with home health pending progress Treatment Plan/Plan of Care Treatment,Training & Education: Yes Patient would benefit from OT for education, treatment and training to promote independence in ADL's, mobility, safety and/or upper extremity function for ADL's. Plan of Care: ADL Retraining, Functional Mobility, UE Funct Exercise/Act Treatment Duration: Jun 14, 2021 Frequency: 3 times per week Estimated Hrs Per Day: .25 hour per day Agreement: Yes 3-5x/week Time/GCodes Start Time: 13:08 Stop Time: 13:23 Total Time Billed (hr/min): 15 Billed Treatment Time 1 visit Rita Cavazos OT Jun 07, 2021 13:39
--- NOTE | 2021-06-07 13:46 | Physical Therapy Evaluation ---
PT Evaluation-General Medical Diagnosis Admission Date Jun 07, 2021 at 03:40 Medical Diagnosis: CHF Onset Date: Jun 07, 2021 Therapy Diagnosis Therapy Diagnosis: impaired mobility, strength, endurance Height/Weight Height (Feet): 5 Height (Inches): 8.00 Weight (Pounds): 223 Weight (Ounces): 0.8 Precautions Precautions/Isolations: Fall Prevention, Standard Precautions Referral Physician: Geri Zhang DO Reason for Referral: Evaluation/Treatment Medical History Additional Medical History Past Medical History Surgeries: Abdominal (hernia repair), Appendectomy, Orthopedic COPD (oxygen dependent) Atrial Fibrillation Macular Degeneration Reviewed History: Yes Social History Home: assisted living Current Living Status: Alone Entry Into Home: Level Entry Prior Prior Level of Function SCALE: Activities may be completed with or without assistive devices. 6-Kovtuvtmge-fodykao completes the activity by him/herself with no assistance from a helper. 5-Set-up or Clean-up Assistance-helper sets up or cleans up; patient completes activity. [place] assists only prior to or following the activity. 4-Supervision or Touching Assistance-helper provides verbal cues and/or touching/steadying and/or contact guard assistance as patient completes activity. Assistance may be provided throughout the activity or intermittently. 3-Partial/Moderate Assistance-helper does LESS THAN HALF the effort. [place] lifts, holds or supports trunk or limbs, but provides less than half the effort. 2-Substantial/Maximal Assistance-helper does MORE THAN HALF the effort. [place] lifts or holds trunk or limbs and provides more than half the effort. 3-Ecwpwrtck-flxboq does ALL the effort. Patient does none of the effort to complete the activity. Or, the assistance of 2 or more helpers is required for the patient to complete the activity. If activity was not attempted, code reason: 7-Patient Refused. 9-Not Applicable-not attempted and the patient did not perform the activity before the current illness, exacerbation or injury. 10-Not Attempted due to Environmental Limitations-(lack of equipment, weather restraints, etc.). 88-Not Attempted due to Medical Conditions or Safety Concerns. Bed Mobility: 6 Transfers (B,C,W/C): 6 Patient states he usually uses a scooter but can ambulate short distances ~ 10' PT Evaluation-Current Subjective Patient in bed pre tx, agrees to PT, has no complaints of pain. Pt/Family Goals "to get my swelling down" Objective Patient Orientation: Person, Place, Situation Attachments: Oxygen ROM/Strength ROM Lower Extremities WNL Strength Lower Extremities grossly 4/5 BLE Integumentary/Posture Integumentary patient has pitting edema in BLE Sensory Sensation Right Lower Extremit: Impaired Sensation Left Lower Extremity: Impaired Transfers Roll Left to Right (QC): 6 Sit to Lying (QC): 4 Lying to Sitting/Side of Bed(Q: 3 Sit to Stand (QC): 4 Chair/Ffr-wa-Ovcef Xfer(QC): 4 Gait Does the Patient Walk?: Yes Mode of Locomotion: Walk Anticipated Mode of Locomotion: Walk Walk 10 feet (QC): 4 Distance: 10' Gait Assistive Device: FWW Comments/Gait Description CGA, slow, SOB afterward (12L of O2) Balance Sitting Static: Normal Sitting Dynamic: Normal Standing Static: Good Standing Dynamic: Good Treatment BLE supine exercises x20 (AP, HS) Assessment/Needs Patient in bed post tx with nurse call, phone, tray, all needs met. Patient has impaired mobility, strength, endurance. Patient gets SOB with ambulation. 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 Goals Time Frame: Jun 14, 2021 Roll Left & Right (QC): 6 Sit to Lying (QC): 6 Lying-Sitting on Side/Bed(QC): 6 Sit to Stand (QC): 6 Chair/Ssr-oz-Urxif Xfer(QC): 6 Walk 10 feet (QC): 6 PT Plan Problem List Problem List: Activity Tolerance, Functional Strength, Safety, Balance, Gait, Transfer, Bed Mobility, ROM Treatment/Plan Treatment Plan: Continue Plan of Care Treatment Plan: Bed Mobility, Education, Functional Activity Tonya, Functional Strength, Gait, Safety, Therapeutic Exercise, Transfers Treatment Duration: Jun 14, 2021 Frequency: 6 times per week Estimated Hrs Per Day: .25 hour per day Patient and/or Family Agrees t: Yes Safety Risks/Education Patient Education: Gait Training, Transfer Techniques, Correct Positioning, Safety Issues Teaching Recipient: Patient Teaching Methods: Demonstration, Discussion Response to Teaching: Reinforcement Needed Discharge Recommendations Plan Patient will perform bed mobility and transfer training, balance and endurance training, functional strengthening, gait training, and education, to improve functional mobility and independence at home. Therapy Discharge Recommendati: Intermittent Supervision, Post Acute PT Time/GCodes Time In: 1308 Time Out: 1323 Total Billed Treatment Time: 15 Total Billed Treatment 1 visit NATALYA Astudillo' ALBERTO GARDNER PT Jun 07, 2021 13:46
[2021-06-07] MEDS ORDERED: LOSA50TA63 PO (15:20)
[2021-06-07] MEDS ORDERED: INSU100I29 SQ (15:20)
[2021-06-07] MEDS ORDERED: SODI50SP NS (15:20)
[2021-06-07] MEDS ORDERED: APIX5TAB PO (15:20)
[2021-06-07] MEDS ORDERED: VIT1CAPS44 PO (15:20)
[2021-06-07] MEDS ORDERED: FURO20TA4 PO (15:20)
[2021-06-07] MEDS ORDERED: SODI0.5GEL NS (15:20)
[2021-06-07] MEDS ORDERED: MONT-40 PO (15:20)
[2021-06-07] MEDS ORDERED: FLUT1BLS10 IH (15:20)
[2021-06-07] MEDS ORDERED: CINN500C2 PO (15:20)
[2021-06-07] MEDS ORDERED: METF-399 PO (15:20)
[2021-06-07] MEDS ORDERED: ASCO-262 PO (15:20)
[2021-06-07] MEDS ORDERED: CHOL100048 PO (15:20)
[2021-06-07] MEDS ORDERED: TIOT4MIS2 IH (15:20)
[2021-06-07] MEDS ORDERED: METO-333 PO (15:20)
--- NOTE | 2021-06-07 16:29 | Consultation-Cardiology ---
HPI-Cardiology Cardiology Consultation: Date of Consultation 06/07/2021 Date of Admission 06/06/2021 Attending Physician Geri Zhang DO Admitting Physician Sherri Zambrano MD Consulting Physician ENZO PEDERSON JR, MD HPI: Time Seen by a Provider: 17:58 Chief Complaint: Reason for consultation: Heart failure and atrial fibrillation. I had the pleasure of seeing Ricardo on the medical/surgical unit at [facility] in [place], [place] today. He normally follows with a credit card clerk at [facility] in [place], [place]. For about the past 3 weeks he has had increasing lower extremity edema. He tried to reach his primary provider at the [facility] in [place] but they did not have any appointments. His edema continued to get worse and worse and ultimately, he presented to the hospital yesterday. He was felt to be in heart failure and also had atrial fibrillation. He was admitted to the hospital for further treatment. Because of these findings, a cardiology consultation was requested. He denies any chest discomfort, dyspnea, paroxysmal nocturnal dyspnea, orthopnea, palpitations, lightheadedness, or syncope. Certain portions of this document may have been dictated utilizing voice recognition technology. Inherent to this technology, typographical and grammatical errors may exist. As much as I am diligent to identify and correct these mistakes, some errors may remain in the document. Review of Systems-Cardiology Review of Systems Other comments Review of 10 organ systems is as per the history of present illness, otherwise negative. GIR-Fpydyk-Jrsorg Hx Patient Social History Smoking Status: Former Smoker 2nd Hand Smoke Exposure: No Have you traveled recently?: No Alcohol Use?: No Pt feels they are or have been: No Tobacco type used: Cigarettes Immunizations Up To Date Date of Influenza Vaccine: Mar 04, 2022 Past Medical History PMH As described under Assessment. Family Medical History Family Medical History: The patient does not know of any family history of premature coronary artery disease in first-degree relatives. Allergies and Home Medications Allergies Coded Allergies: No Known Allergies (Unverified Allergy, Unknown, 07/30/18) Patient Home Medication List Home Medication List Reviewed: Yes Apixaban (Eliquis) 5 Mg Tablet, 5 MG PO BID, (Reported) Entered as Reported by: KYLE MCCLELLAND on 06/07/21 0480 Last Action: Continued Ascorbate Calcium (Vitamin C) 500 Mg Tablet, 500 MG PO BID, (Reported) Entered as Reported by: KYLE MCCLELLAND on 06/07/211519 Last Action: Held Cholecalciferol (Vitamin D3) (Vitamin D3) 25 Mcg Capsule, 25 MCG PO DAILY, (Reported) Entered as Reported by: KYLE MCCLELLAND on 06/07/211519 Last Action: Held Cinnamon Bark (Cinnamon) 500 Mg Capsule, 500 MG PO BID, (Reported) Entered as Reported by: KYLE MCCLELLAND on 06/07/211519 Last Action: Held Fluticasone Propion/Salmeterol (Wixela 500-50 Inhub) 1 Each Blst.w.dev, 1 EACH IH BID, (Reported) Entered as Reported by: KYLE MCCLELLAND on 06/07/211519 Last Action: Converted Furosemide (Furosemide) 20 Mg Tablet, 20 MG PO DAILY, (Reported) Entered as Reported by: KYLE MCCLELLAND on 06/07/211519 Last Action: Held Insulin Detemir (Levemir Flextouch) 100 Unit/1 Ml Insuln.pen, 25 UNIT SQ HS, (Reported) Entered as Reported by: KYLE MCCLELLAND on 06/07/211519 Last Action: Converted Losartan Potassium (Losartan Potassium) 50 Mg Tablet, 25 MG PO DAILY, (Reported) Entered as Reported by: KYLE MCCLELLAND on 06/07/211519 Last Action: Held Metformin HCl (Metformin HCl) 1,000 Mg Tablet, 1,000 MG PO BID, (Reported) Entered as Reported by: KYLE MCCLELLAND on 06/07/211519 Last Action: Held Metoprolol Tartrate (Metoprolol Tartrate) 25 Mg Tablet, 12.5 MG PO BID, (Reported) Entered as Reported by: KYLE MCCLELLAND on 06/07/211519 Last Action: Held Montelukast Sodium (Montelukast Sodium) 10 Mg Tablet, 10 MG PO HS, (Reported) Entered as Reported by: KYLE MCCLELLAND on 06/07/211519 Last Action: Continued Sodium Chloride (Otis Saline) 50 Ml [place], 1 SPRAY NS QID PRN for DRY NOSE, (Reported) Entered as Reported by: KYLE MCCLELLAND on 06/07/211519 Last Action: Continued Sodium Chloride/Aloe Vera (Otis Saline Nasal Gel) 14.1 Gm Gel..gram., 1 APPLIC NS TID PRN for DRY NOSE, (Reported) Entered as Reported by: KYLE MCCLELLAND on 06/07/211519 Last Action: Continued Tiotropium [place] (Spiriva Respimat 2.5MCG/ACTUATION) 4 Gm Mist.inhal, 2 PUFF IH DAILY, (Reported) Entered as Reported by: KYLE MCCLELLAND on 06/07/211519 Last Action: Converted Vit C/E/Zn/Coppr/Lutein/Zeaxan (Preservision Areds 2 Softgel) 1 Each Capsule, 2 EACH PO DAILY, (Reported) Entered as Reported by: KYLE MCCLELLAND on 06/07/211519 Last Action: Held Exam Vital Signs Vital Signs Date Time Temp Pulse Resp B/P (MAP) Pulse Ox O2 Delivery O2 Flow Rate FiO2 06/07/21 16:14 36.7 108 18 110/68 (82) 94 High Flow N/C 12.00 Physical Exam General: Alert. No acute distress. Well nourished and appears stated age. Eye: Extraocular movements are intact. Conjunctivae are clear. There are no xanthelasma. HENT: Normocephalic. Atraumatic. Carotid pulsations 2/2 without bruits. Neck: Jugular venous pressure does not appear elevated. No thyromegaly appreciated. Respiratory: Lungs are clear to auscultation. Respirations are non-labored. Breath sounds are equal. Symmetrical chest wall expansion. Cardiovascular: Normal rate. Irregular rhythm. 2/6 systolic ejection murmur. No gallop. Point of maximal impulse is not appear displaced. Good pulses equal in all extremities. No edema. Gastrointestinal: Soft. Normal bowel sounds. Skin: Skin turgor is normal. There is no pallor. Musculoskeletal: No kyphosis or scoliosis appreciated. Neurologic: Alert and oriented to person, place, time. Cranial nerves 3-12 appear grossly intact. The patient has good motor tone strength in the upper and lower extremities bilaterally. Psychiatric: Cooperative. Appropriate mood & affect. Labs Laboratory Tests Test 06/07/21 00:09 06/07/21 01:04 06/07/21 01:05 06/07/21 05:13 Range/Units White Blood Count 10.5 4.3-11.0 10^3/uL Red Blood Count 4.57 4.30-5.52 10^6/uL Hemoglobin 12.9 L 13.3-17.7 g/dL Hematocrit 42 40-54 % Mean Corpuscular Volume 92 80-99 fL Mean Corpuscular Hemoglobin 28 25-34 pg Mean Corpuscular Hemoglobin Concent 31 L 32-36 g/dL Red Cell Distribution Width 18.7 H 10.0-14.5 % Platelet Count 322 130-400 10^3/uL Mean Platelet Volume 9.7 9.0-12.2 fL Immature Granulocyte % (Auto) 1 % Neutrophils (%) (Auto) 78 H 42-75 % Lymphocytes (%) (Auto) 10 L 12-44 % Monocytes (%) (Auto) 10 0-12 % Eosinophils (%) (Auto) 2 0-10 % Basophils (%) (Auto) 1 0-10 % Neutrophils # (Auto) 8.2 H 1.8-7.8 X 10^3 Lymphocytes # (Auto) 1.0 1.0-4.0 X 10^3 Monocytes # (Auto) 1.0 0.0-1.0 X 10^3 Eosinophils # (Auto) 0.2 0.0-0.3 10^3/uL Basophils # (Auto) 0.1 0.0-0.1 10^3/uL Immature Granulocyte # (Auto) 0.1 0.0-0.1 10^3/uL Prothrombin Time 16.3 H 12.2-14.7 SEC INR Comment 1.3 0.8-1.4 Activated Partial Thromboplast Time 33 24-35 SEC Sodium Level 141 135-145 MMOL/L Potassium Level 4.4 3.6-5.0 MMOL/L Chloride Level 102 98-107 MMOL/L Carbon Dioxide Level 27 21-32 MMOL/L Anion Gap 12 5-14 MMOL/L Blood Urea Nitrogen 26 H 7-18 MG/DL Creatinine 1.28 0.60-1.30 MG/DL Estimat Glomerular Filtration Rate 54 BUN/Creatinine Ratio 20 Glucose Level 177 H 70-105 MG/DL Calcium Level 9.3 8.5-10.1 MG/DL Corrected Calcium 9.2 8.5-10.1 MG/DL Magnesium Level 1.9 1.6-2.4 MG/DL Total Bilirubin 0.7 0.1-1.0 MG/DL Aspartate Amino Transf (AST/SGOT) 16 5-34 U/L Alanine Aminotransferase (ALT/SGPT) 16 0-55 U/L Alkaline Phosphatase 72 40-136 U/L Troponin I < 0.30 <0.30 NG/ML C-Reactive Protein 1.81 H <0.50 MG/DL Pro-B-Type Natriuretic Peptide 2967.0 H <75.0 PG/ML Total Protein 7.2 6.4-8.2 GM/DL Albumin 4.1 3.2-4.5 GM/DL Coronavirus (COVID-19)(PCR) Negative Negative Influenza Type A Antigen NEGATIVE NEGATIVE Influenza Type B Antigen NEGATIVE NEGATIVE SARS-CoV-2 RNA (RT-PCR) Negative Negative Urine Color YELLOW Urine Clarity CLEAR Urine pH 6.0 5-9 Urine Specific [place] 1.020 1.016-1.022 Urine Protein 1+ H NEGATIVE Urine Glucose (UA) NEGATIVE NEGATIVE Urine Ketones NEGATIVE NEGATIVE Urine Nitrite NEGATIVE NEGATIVE Urine Bilirubin NEGATIVE NEGATIVE Urine Urobilinogen 0.2 < = 1.0 MG/DL Urine Leukocyte Esterase NEGATIVE NEGATIVE Urine RBC (Auto) NEGATIVE NEGATIVE Urine RBC RARE /HPF Urine WBC RARE /HPF Urine Squamous Epithelial Cells RARE /HPF Urine Crystals NONE /LPF Urine Bacteria NEGATIVE /HPF Urine Casts PRESENT /LPF Urine Hyaline Casts 0-2 H /LPF Urine Mucus MODERATE H /LPF Urine Culture Indicated NO Glucometer 115 H 70-110 MG/DL Test 06/07/21 05:30 06/07/21 11:07 06/07/21 15:46 Range/Units White Blood Count 10.4 4.3-11.0 10^3/uL Red Blood Count 4.48 4.30-5.52 10^6/uL Hemoglobin 12.9 L 13.3-17.7 g/dL Hematocrit 41 40-54 % Mean Corpuscular Volume 92 80-99 fL Mean Corpuscular Hemoglobin 29 25-34 pg Mean Corpuscular Hemoglobin Concent 31 L 32-36 g/dL Red Cell Distribution Width 18.3 H 10.0-14.5 % Platelet Count 305 130-400 10^3/uL Mean Platelet Volume 10.1 9.0-12.2 fL Immature Granulocyte % (Auto) 1 % Neutrophils (%) (Auto) 71 42-75 % Lymphocytes (%) (Auto) 14 12-44 % Monocytes (%) (Auto) 12 0-12 % Eosinophils (%) (Auto) 2 0-10 % Basophils (%) (Auto) 1 0-10 % Neutrophils # (Auto) 7.4 1.8-7.8 10^3/uL Lymphocytes # (Auto) 1.4 1.0-4.0 10^3/uL Monocytes # (Auto) 1.3 H 0.0-1.0 10^3/uL Eosinophils # (Auto) 0.2 0.0-0.3 10^3/uL Basophils # (Auto) 0.1 0.0-0.1 10^3/uL Immature Granulocyte # (Auto) 0.1 0.0-0.1 10^3/uL Sodium Level 141 135-145 MMOL/L Potassium Level 4.3 3.6-5.0 MMOL/L Chloride Level 100 98-107 MMOL/L Carbon Dioxide Level 28 21-32 MMOL/L Anion Gap 13 5-14 MMOL/L Blood Urea Nitrogen 25 H 7-18 MG/DL Creatinine 1.24 0.60-1.30 MG/DL Estimat Glomerular Filtration Rate 56 BUN/Creatinine Ratio 20 Glucose Level 113 H 70-105 MG/DL Calcium Level 9.3 8.5-10.1 MG/DL Glucometer 124 H 138 H 70-110 MG/DL Radiology ECHOCARDIOGRAM (06/07/2021): 1. This is a technically difficult study due to poor image quality. 2. Left ventricle: The cavity size is normal. There is severe concentric hypertrophy. Systolic function is normal. The estimated ejection fraction is 50- 55%. Features are consistent with a pseudonormal left ventricular filling pattern, with concomitant abnormal relaxation and increased filling pressure (grade 2 diastolic dysfunction). 3. Regional wall motion abnormality: Hypokinesis of the basal-mid inferoseptal and apical septal myocardium. 4. Right ventricle: The right ventricle is moderately dilated measuring 3.8 cm midcavity. Systolic function is severely reduced. TAPSE 0.9 cm. 5. Left atrium: The left atrium is severely dilated with a volume index of 63 mL/m. 6. Right atrium: The right atrium is severely dilated with an area of 41 cm. 7. Mitral valve: There is moderate mitral regurgitation. 8. Aortic valve: There is mild aortic regurgitation with a pressure half-time of 614 ms. 9. Tricuspid valve: There is moderate-severe tricuspid regurgitation. 10. Aortic root: The aortic root is dilated at 4.3 cm. 11. Pericardium, extracardiac: A trivial pericardial effusion is identified. 12. Inferior vena cava: The vessel is dilated. The respirophasic diameter changes are blunted (less than 50%). These findings are consistent with markedly elevated right atrial pressure (15 mmHg). 13. Pulmonary arteries: The estimated pulmonary artery systolic pressure is 89 mmHg assuming a right atrial pressure of 15 mmHg. ECG Impression ECG Comment Atrial fibrillation with a ventricular rate of 113 bpm with left anterior hemiblock, possible old anteroseptal infarct and nonspecific ST-T wave changes. Diagnosis/Problems Diagnosis/Problems (1) Acute on chronic heart failure with preserved ejection fraction (HFpEF) Assessment & Plan: His chest x-ray shows evidence of pulmonary edema and his BNP level is elevated. He is now on intravenous furosemide. I recommend resuming his outpatient antihypertensive medication. Once we get the heart failure under control, he can follow-up with his regular credit card clerk at the outside facility after discharge. I will obtain a follow-up chest x-ray for tomorrow. (2) Mitral regurgitation Assessment & Plan: His echocardiogram from today shows moderate mitral regurgitation. This will need to be followed longitudinally by his regular credit card clerk at the outside facility. (3) Pulmonary hypertension Assessment & Plan: Exact etiology unclear. I suspect this is a chronic finding and the patient due to his chronic heart failure and possibly some underlying pulmonary disease. (4) Permanent atrial fibrillation Assessment & Plan: He was on metoprolol tartrate for rate control but this is currently on hold. If his blood pressures will tolerate this, I recommend resuming this medication. He has been on apixaban for stroke prophylaxis. This has been resumed. (5) Primary hypertension Assessment & Plan: Blood pressures have waxed and waned. We will continue to monitor his blood pressure and resume his outpatient antihypertensive medication when able. (6) Stage 3 chronic kidney disease Assessment & Plan: We will need to watch his renal function closely with the intravenous furosemide. ENZO PEDERSON JR, MD Jun 07, 2021 16:29
[2021-06-07] MEDS ORDERED: SALINE NASAL SPRAY (OCEAN) 45 ML BTL NS PRN (16:30)
[2021-06-07] MEDS: MONTELUKAST 10 MG (SINGULAIR) TAB PO SCH (19:42)
[2021-06-07] MEDS: APIXABAN 5 MG (ELIQUIS) TABLET PO SCH (19:42)
[2021-06-07] MEDS: RT--FLUTICASONE/SALMETEROL 232-14 (AIRDUO RespiCLICK) IH SCH (21:17)
[2021-06-08] MEDS: RT-ALBUTEROL/IPRATROPIUM 3 ML (DUONEB) VIAL INH SCH ×6 (02:35→22:00)
[2021-06-08 04:11] VITALS: BP 128/57
[2021-06-08] MEDS: inSUlin ASPART (NovoLOG) 1 UNIT/0.01 ML (CHARGE PER UNIT) SC SCH ×4 (05:24→21:10)
[2021-06-08] MEDS: CATHETER FLUSH 10 ML SYR IV SCH ×3 (05:25→21:05)
[2021-06-08 05:53] LABS: POTASSIUM 4.5 MMOL/L (3.6-5.0)
[2021-06-08 05:54] LABS: ALBUMIN 3.4 GM/DL (3.2-4.5)
[2021-06-08 05:55] LABS: CALCIUM 8.8 MG/DL (8.5-10.1)
[2021-06-08 05:56] LABS: TOTAL PROTEIN 6.7 GM/DL (6.4-8.2)
[2021-06-08 05:58] LABS: BILIRUBIN,TOTAL 1.1 MG/DL (0.1-1.0)
[2021-06-08 06:00] LABS: CREATININE SERUM 1.07 MG/DL (0.60-1.30)
[2021-06-08 06:33] LABS: BASOPHILS % (AUTO) 1 % (0-10); EOSINOPHILS # (AUTO) 0.1 10^3/uL (0.0-0.3); EOSINOPHILS % (AUTO) 2 % (0-10); HEMATOCRIT 38 % (40-54); HEMOGLOBIN 12.2 g/dL (13.3-17.7); LYMPHOCYTES # (AUTO) 0.9 10^3/uL (1.0-4.0); LYMPHOCYTES % (AUTO) 11 % (12-44); MEAN CORPUSCULAR HEMOGLOBIN 29 pg (25-34); MEAN CORPUSCULAR HGB CONC 32 g/dL (32-36); MEAN CORPUSCULAR VOLUME 90 fL (80-99); MEAN PLATELET VOLUME 10.3 fL (9.0-12.2); MONOCYTES # (AUTO) 1.1 10^3/uL (0.0-1.0); MONOCYTES % (AUTO) 13 % (0-12); NEUTROPHILS # (AUTO) 6.1 10^3/uL (1.8-7.8); NEUTROPHILS % (AUTO) 74 % (42-75); PLATELET COUNT 304 10^3/uL (130-400); WHITE BLOOD COUNT 8.3 10^3/uL (4.3-11.0)
[2021-06-08 07:53] VITALS: BP 133/84
[2021-06-08] MEDS: APIXABAN 5 MG (ELIQUIS) TABLET PO SCH ×2 (08:09→21:09)
[2021-06-08] MEDS: FUROSEMIDE 40 MG/4 ML INJ (LASIX) IV SCH ×2 (08:09→18:14)
--- NOTE | 2021-06-08 08:29 | Progress Note ---
[facility] 06/08/21 0829: Subjective Date Seen by a Provider: Jun 08, 2021 Time Seen by a Provider: 07:34 Subjective/Events-last exam Patient reports that LE swelling has decreased Still having dyspnea with exertion (walking less than 10 feet) Echo revealed HFpEF and severe concentric hypertrophy. HF nasal cannula at 12 L Review of Systems General: No Chills, No Other (fevers) Pulmonary: Cough, Other (requiring O2) Cardiovascular: No: Chest Pain, Palpitations Gastrointestinal: No: Nausea, Vomiting Objective Exam Last Set of Vital Signs Vital Signs Date Time Temp Pulse Resp B/P (MAP) Pulse Ox O2 Delivery O2 Flow Rate FiO2 06/08/21 07:53 36.4 112 22 133/84 (100) 94 High Flow N/C 12.00 Capillary Refill : Less Than 3 Seconds I&O Intake and Output 06/08/21 00:00 Intake Total 1820 ml Output Total 3835 ml Balance -2015 ml Intake Oral 1820 ml Output Urine Total 3835 ml # Voids 2 Daily Weight Change No General: Alert, Oriented X3 HEENT: Atraumatic, PERRLA Neck: Supple, No JVD Lungs: Normal Air Movement, Other (Lung sounds improved, minimal crackles bilaterally on posterior posts) Heart: Other (Tachycardia, irregularly irregular) Abdomen: Soft, No Tenderness Extremities: Other (Edema decreased with the help of phoenix wrapping. ) Skin: No Rashes, No Breakdown Neuro: Normal Gait, Normal Speech Psych/Mental Status: Mental Status NL Results Lab Laboratory Tests 06/07/21 11:07: Glucometer 124H 06/07/21 15:46: Glucometer 138H 06/07/21 20:21: Glucometer 136H 06/08/21 05:10: White Blood Count 8.3, Red Blood Count 4.25L, Hemoglobin 12.2L, Hematocrit 38L, Mean Corpuscular Volume 90, Mean Corpuscular Hemoglobin 29, Mean Corpuscular Hemoglobin Concent 32, Red Cell Distribution Width 17.9H, Platelet Count 304, Mean Platelet Volume 10.3, Immature Granulocyte % (Auto) 0, Neutrophils (%) (Auto) 74, Lymphocytes (%) (Auto) 11L, Monocytes (%) (Auto) 13H, Eosinophils (%) (Auto) 2, Basophils (%) (Auto) 1, Neutrophils # (Auto) 6.1, Lymphocytes # (Auto) 0.9L, Monocytes # (Auto) 1.1H, Eosinophils # (Auto) 0.1, Basophils # (Auto) 0.0, Immature Granulocyte # (Auto) 0.0, Sodium Level 139, Potassium Level 4.5, Chloride Level 99, Carbon Dioxide Level 28, Anion Gap 12, Blood Urea Nitrogen 18, Creatinine 1.07, Estimat Glomerular Filtration Rate 66, BUN/Creatinine Ratio 17, Glucose Level 142H, Calcium Level 8.8, Corrected Calcium 9.3, Total Bilirubin 1.1H, Aspartate Amino Transf (AST/SGOT) 26, Alanine Aminotransferase (ALT/SGPT) 15, Alkaline Phosphatase 47, Total Protein 6.7, Albumin 3.4, Triglycerides Level 80, Cholesterol Level 108, LDL Cholesterol Direct 69, VLDL Cholesterol 16, HDL Cholesterol 33L 06/08/21 05:13: Glucometer 132H Assessment/Plan Assessment/Plan Assess & Plan/Chief Complaint Acute exacerbation of CHF Possible Pre-renal azotemia secondary to CHF Pulmonary Edema O2 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 If patient declines, Follow up with Chest X-ray AM Chest x-ray TSH levels Continue home medications Possible Echocardiogram Continue 80 mg of Lasix, may need to switch to Bumex, if patient does not respond appropriately Low Sodium Diet Consult PT/OT DVT prophylaxis with SCDs and Eliquis GERI GONZALEZ DO 06/09/21 0522: Subjective Subjective/Events-last exam Pt is doing a little bit better Slow recovery Heart failure is significant Lasix will be given BID PHOEN[place] wraps around lower extremities have really helped Tachycardic at 110 Echocardiogram showed diastolic heart failure Chest x-ray was ordered by Dr. Odom PT and OT maintained Pt is overall doing a little bit better Review of Systems General: Fatigue Pulmonary: Dyspnea Objective Exam General: Alert, Oriented X3, Cooperative, No Acute Distress Lungs: Normal Air Movement, Other (Lung sounds improved, minimal crackles bilaterally on posterior posts) Psych/Mental Status: Mental Status NL Assessment/Plan Assessment/Plan Assess & Plan/Chief Complaint Appreciate Cardiology BM regimen Monitor closely Supervisory-Addendum Brief Verification & Attestation Participated in pt care: history, MDM, physical Personally performed: exam, history, MDM, supervision of care Care discussed with: Medical Student Procedures: n/a Results interpretation: Verified all documentation Verification and Attestation of Medical Student E/M Service A medical student performed and documented this service in my presence. I reviewed and verified all information documented by the medical student and made modifications to such information, when appropriate. I personally performed the physical exam and medical decision making. Geri Gonzalez, Jun 09, 2021,05:20 DAVONTE PERAZA MED STUD Jun 08, 2021 08:29 GERI GONZALEZ DO Jun 09, 2021 05:22
--- NOTE | 2021-06-08 09:40 | Diagnostic Imaging Report ---
INDICATION: Heart failure. PA and lateral views of the heart are obtained with comparison made to study of 07/23/2018. FINDINGS: There is continued cardiomegaly. There is mild pulmonary venous congestion with increased bilateral groundglass density. No pneumothorax is identified. There is no significant pleural fluid. There is continued elevation of the right hemidiaphragm. IMPRESSION: Cardiomegaly, pulmonary venous congestion and developing airspace disease is likely related to pulmonary edema and congestive heart failure. Dictated by: Dictated on workstation # [id number]
--- NOTE | 2021-06-08 10:22 | Cardiology Progress Note ---
Progress Note-Cardiology Events since last exam Date Seen by Provider: Jun 08, 2021 Time Seen by Provider: 10:21 Events since last exam I am following him due to atrial fibrillation and heart failure. He was prev iously following with Dr. Carney but did not come to the office since before Covid. He did not see eye to eye with Dr. Carney. He is still fairly short of breath. He has a nonproductive cough and this causes him to have pain in between his lower ribs on the left. His ankle edema has resolved. He denies palpitations or syncope. Vitals Last set of Vitals Signs Vital Signs 06/08/21 06/08/21 07:53 08:00 Temp 36.4 Pulse 112 Resp 22 B/P (MAP) 133/84 (100) Pulse Ox 94 O2 Delivery High Flow N/C O2 Flow Rate 12.00 Labs Labs Laboratory Tests 06/08/21 05:10 Exam Vital Signs Vital Signs Date Time Temp Pulse Resp B/P (MAP) Pulse Ox O2 Delivery O2 Flow Rate FiO2 06/08/21 08:00 High Flow N/C 12.00 06/08/21 07:53 36.4 112 22 133/84 (100) 94 Physical Exam General: Alert. Mild respiratory distress. He is obese. Eye: No xanthelasma. HENT: Normocephalic. Neck: Jugular venous pressure does not appear elevated. Respiratory: Lungs are clear to auscultation but with diffusely decreased breath sounds. Respirations are non-labored. Breath sounds are equal. Symmetrical chest wall expansion. Cardiovascular: Tachycardia. Irregular rhythm. Distant S1/S2. No murmur. No gallop. No edema. Gastrointestinal: Soft. Normal bowel sounds. Skin: Warm. Dry. Neurologic: Alert and oriented to person, place, time. Cranial nerves 3-11 grossly intact. Psychiatric: Cooperative. Appropriate mood & affect. Labs Laboratory Tests Test 06/07/21 11:07 06/07/21 15:46 06/07/21 20:21 06/08/21 05:10 Range/Units Glucometer 124 H 138 H 136 H 70-110 MG/DL White Blood Count 8.3 4.3-11.0 10^3/uL Red Blood Count 4.25 L 4.30-5.52 10^6/uL Hemoglobin 12.2 L 13.3-17.7 g/dL Hematocrit 38 L 40-54 % Mean Corpuscular Volume 90 80-99 fL Mean Corpuscular Hemoglobin 29 25-34 pg Mean Corpuscular Hemoglobin Concent 32 32-36 g/dL Red Cell Distribution Width 17.9 H 10.0-14.5 % Platelet Count 304 130-400 10^3/uL Mean Platelet Volume 10.3 9.0-12.2 fL Immature Granulocyte % (Auto) 0 % Neutrophils (%) (Auto) 74 42-75 % Lymphocytes (%) (Auto) 11 L 12-44 % Monocytes (%) (Auto) 13 H 0-12 % Eosinophils (%) (Auto) 2 0-10 % Basophils (%) (Auto) 1 0-10 % Neutrophils # (Auto) 6.1 1.8-7.8 10^3/uL Lymphocytes # (Auto) 0.9 L 1.0-4.0 10^3/uL Monocytes # (Auto) 1.1 H 0.0-1.0 10^3/uL Eosinophils # (Auto) 0.1 0.0-0.3 10^3/uL Basophils # (Auto) 0.0 0.0-0.1 10^3/uL Immature Granulocyte # (Auto) 0.0 0.0-0.1 10^3/uL Sodium Level 139 135-145 MMOL/L Potassium Level 4.5 3.6-5.0 MMOL/L Chloride Level 99 98-107 MMOL/L Carbon Dioxide Level 28 21-32 MMOL/L Anion Gap 12 5-14 MMOL/L Blood Urea Nitrogen 18 7-18 MG/DL Creatinine 1.07 0.60-1.30 MG/DL Estimat Glomerular Filtration Rate 66 BUN/Creatinine Ratio 17 Glucose Level 142 H 70-105 MG/DL Calcium Level 8.8 8.5-10.1 MG/DL Corrected Calcium 9.3 8.5-10.1 MG/DL Total Bilirubin 1.1 H 0.1-1.0 MG/DL Aspartate Amino Transf (AST/SGOT) 26 5-34 U/L Alanine Aminotransferase (ALT/SGPT) 15 0-55 U/L Alkaline Phosphatase 47 40-136 U/L Total Protein 6.7 6.4-8.2 GM/DL Albumin 3.4 3.2-4.5 GM/DL Triglycerides Level 80 <150 MG/DL Cholesterol Level 108 < 200 MG/DL LDL Cholesterol Direct 69 1-129 MG/DL VLDL Cholesterol 16 5-40 MG/DL HDL Cholesterol 33 L 40-60 MG/DL Test 06/08/21 05:13 Range/Units Glucometer 132 H 70-110 MG/DL Diagnosis/Problems Diagnosis/Problems (1) Acute on chronic heart failure with preserved ejection fraction (HFpEF) Assessment & Plan: His chest x-ray shows evidence of pulmonary edema and his BNP level is elevated. He is now on intravenous furosemide. He is still fairly short of breath. I will increase the furosemide to twice daily. He was with his daughter today who tells me that he has not been seen a photograph mounter in [place]. I will have him follow-up with me. I will obtain a follow-up BMP and chest x-ray in the morning. (2) Permanent atrial fibrillation Assessment & Plan: He was on metoprolol tartrate for rate control but this is currently on hold. Given his probable underlying chronic obstructive pulmonary disease, I will change the metoprolol over to diltiazem and I will start this today. Diltiazem will be less likely to cause issues with his pulmonary disease. He should continue on apixaban for stroke prophylaxis. (3) Mitral regurgitation Assessment & Plan: His echocardiogram from this admission shows moderate mitral regurgitation. This will need to be followed longitudinally. (4) Pulmonary hypertension Assessment & Plan: Exact etiology unclear. I suspect this is a chronic finding and the patient due to his chronic heart failure and probably underlying pulmonary disease. He should continue on home oxygen and this condition will need to be followed longitudinally. (5) Primary hypertension Assessment & Plan: Blood pressures have waxed and waned. As above, I will start him on diltiazem. (6) Stage 3 chronic kidney disease Assessment & Plan: We will need to watch his renal function closely with the intravenous furosemide. ENZO PEDERSON JR, MD Jun 08, 2021 10:22
[2021-06-08] MEDS: dilTIAZem120 MG (CARDIZEM CD) CAP PO SCH (10:59)
[2021-06-08 11:35] VITALS: BP 110/75
--- NOTE | 2021-06-08 11:35 | Occupational Ther Daily Note ---
OT Current Status-Daily Note Subjective Pt alert, lying in bed. Pt agrees reluctantly to therapy. No c/o pain. Increased cough during session, nrsg aware. Mental Status/Objective Patient Orientation: Person, Place, Time, Situation Attachments: IV, Oxygen (HiFlow 12L) ADL-Treatment Supine to EOB independent with HOB raised. Ambulated few steps to recliner without AD, no LOB. Pt able to don/doff socks after set up using figure 4 tech. After session, pt sitting in recliner with call light/phone in reach. All needs met in room. Therapy Code Descriptions/Definitions Functional [place] Measure: 0=Not Assessed/NA 4=Minimal Assistance 1=Total Assistance 5=Supervision or Setup 2=Maximal Assistance 6=Modified [place] 3=Moderate Assistance 7=Complete IndependenceSCALE: Activities may be completed with or without assistive devices. 9-Kdkntkjszp-tqhbsrp completes the activity by him/herself with no assistance from a helper. 5-Set-up or Clean-up Assistance-helper sets up or cleans up; patient completes activity. [place] assists only prior to or following the activity. 4-Supervision or Touching Assistance-helper provides verbal cues and/or touching/steadying and/or contact guard assistance as patient completes activity. Assistance may be provided throughout the activity or intermittently. 3-Partial/Moderate Assistance-helper does LESS THAN HALF the effort. [place] lifts, holds or supports trunk or limbs, but provides less than half the effort. 2-Substantial/Maximal Assistance-helper does MORE THAN HALF the effort. [place] lifts or holds trunk or limbs and provides more than half the effort. 5-Uqqlkwajb-fjklqh does ALL the effort. Patient does none of the effort to comp lete the activity. Or, the assistance of 2 or more helpers is required for the patient to complete the activity. If activity was not attempted, code reason: 7-Patient Refused. 9-Not Applicable-not attempted and the patient did not perform the activity before the current illness, exacerbation or injury. 10-Not Attempted due to Environmental Limitations-(lack of equipment, weather restraints, etc.). 88-Not Attempted due to Medical Conditions or Safety Concerns. On/Off Footwear: 5 OT Halfway Goals Certified Coding Specialist Goals Time Frame: Jun 14, 2021 Oral Hygiene (QC): 5 Toileting Hygiene (QC): 5 Upper Body Dressing (QC): 5 Lower Body Dressing (QC): 5 1=Demonstrate adherence to instructed precautions during ADL tasks. 2=Patient will verbalize/demonstrate understanding of assistive devices/modifications for ADL. 3=Patient will improve strength/tolerance for activity to enable patient to perform ADL's. OT Education/Plan Problem List/Assessment Assessment: Decreased Activ Tolerance, Impaired Self-Care Skills Discharge Recommendations Plan/Recommendations: Continue POC Treatment Plan/Plan of Care Patient would benefit from OT for education, treatment and training to promote independence in ADL's, mobility, safety and/or upper extremity function for ADL's. Plan of Care: ADL Retraining, Functional Mobility, UE Funct Exercise/Act Treatment Duration: Jun 14, 2021 Frequency: 3 times per week Estimated Hrs Per Day: .25 hour per day Agreement: Yes Rehab Potential: Fair Time/GCodes Start Time: 10:59 Stop Time: 11:14 Total Time Billed (hr/min): 15 Billed Treatment Time 1 visit-FA 1 (15 min) NANCY GEORGE Jun 08, 2021 11:35
[2021-06-08] MEDS: RT--FLUTICASONE/SALMETEROL 232-14 (AIRDUO RespiCLICK) IH SCH ×2 (14:11→22:00)
[2021-06-08] MEDS: UMECLIDINIUM BROMIDE (INCRUSE ELLIPTA) 7'S IH SCH (14:12)
--- NOTE | 2021-06-08 14:26 | Physical Therapy Daily Note ---
PT Daily Note-Current Subjective Pt sitting in recliner upon arrival. Pt agrees to PT in room. Daughter present. Pain Location: No Pain Reported Mental Status Patient Orientation: Person, Place, Time, Situation Attachments: Oxygen, Other-See Comments (MAGUI wrap for B LE swelling) Transfers SCALE: Activities may be completed with or without assistive devices. 8-Vdqpzxqzzs-xeyofkw completes the activity by him/herself with no assistance from a helper. 5-Set-up or Clean-up Assistance-helper sets up or cleans up; patient completes activity. [place] assists only prior to or following the activity. 4-Supervision or Touching Assistance-helper provides verbal cues and/or touching/steadying and/or contact guard assistance as patient completes activity. Assistance may be provided throughout the activity or intermittently. 3-Partial/Moderate Assistance-helper does LESS THAN HALF the effort. [place] lifts, holds or supports trunk or limbs, but provides less than half the effort. 2-Substantial/Maximal Assistance-helper does MORE THAN HALF the effort. [place] lifts or holds trunk or limbs and provides more than half the effort. 7-Ftujkwabb-nyelhk does ALL the effort. Patient does none of the effort to complete the activity. Or, the assistance of 2 or more helpers is required for the patient to complete the activity. If activity was not attempted, code reason: 7-Patient Refused. 9-Not Applicable-not attempted and the patient did not perform the activity before the current illness, exacerbation or injury. 10-Not Attempted due to Environmental Limitations-(lack of equipment, weather restraints, etc.). 88-Not Attempted due to Medical Conditions or Safety Concerns. Sit to Stand (QC): 5 Weight Bearing Full Weight Bearing Full Weight Bearing Gait Training Does the Patient Walk?: Yes Distance: 15' x2 Walk 10 feet (QC): 5 Gait Persons Needed: 1 Gait Assistive Device: FWW Treatments Pt reports and completes Supine EX to show MAIL SUPERINTENDENT what pt has been completing independently in recliner. Pt TF to standing and amb. in room and back to recliner. Pt reports fatigue at this time and asks to rest. Pt resting in recliner with B LE up on pillows to aid with swelling. All needs met, call light in hand. Assessment Current Status: Good Progress Pt is improving amb. distance since fluid is coming off and pt is feeling better. PT Glaze Maker Goals Glaze Maker Goals PT Glaze Maker Goals Time Frame: Jun 14, 2021 Roll Left & Right (QC): 6 Sit to Lying (QC): 6 Lying-Sitting on Side/Bed(QC): 6 Sit to Stand (QC): 6 Chair/Kgt-sv-Vjdvq Xfer(QC): 6 Walk 10 feet (QC): 6 PT Plan Problem List Problem List: Activity Tolerance Treatment/Plan Treatment Plan: Continue Plan of Care Treatment Plan: Bed Mobility, Education, Functional Activity Tonya, Functional Strength, Gait, Safety, Therapeutic Exercise, Transfers Treatment Duration: Jun 14, 2021 Frequency: 6 times per week Estimated Hrs Per Day: .25 hour per day Patient and/or Family Agrees t: Yes Safety Risks/Education Patient Education: Transfer Techniques, Correct Positioning Teaching Recipient: Patient Teaching Methods: Discussion Response to Teaching: Verbalize Understanding Time/GCodes Time In: 1350 Time Out: 1411 Total Billed Treatment Time: 21 Total Billed Treatment 1, FA (21m) HELEN OLIVO PTA Jun 08, 2021 14:26
[2021-06-08 16:03] VITALS: BP 118/75
[2021-06-08 20:04] VITALS: BP 138/92
[2021-06-08] MEDS: MONTELUKAST 10 MG (SINGULAIR) TAB PO SCH (21:09)
[2021-06-08 23:53] VITALS: BP 126/69
[2021-06-09] MEDS: RT-ALBUTEROL/IPRATROPIUM 3 ML (DUONEB) VIAL INH SCH ×5 (02:38→21:55)
[2021-06-09 04:08] VITALS: BP 120/56
[2021-06-09] MEDS: CATHETER FLUSH 10 ML SYR IV SCH ×3 (05:48→21:03)
[2021-06-09] MEDS: FUROSEMIDE 40 MG/4 ML INJ (LASIX) IV SCH ×2 (06:10→17:12)
[2021-06-09] MEDS: inSUlin ASPART (NovoLOG) 1 UNIT/0.01 ML (CHARGE PER UNIT) SC SCH ×4 (06:10→21:03)
[2021-06-09 06:57] LABS: BASOPHILS # (AUTO) 0.1 10^3/uL (0.0-0.1); BASOPHILS % (AUTO) 1 % (0-10); EOSINOPHILS # (AUTO) 0.1 10^3/uL (0.0-0.3); EOSINOPHILS % (AUTO) 2 % (0-10); HEMATOCRIT 39 % (40-54); HEMOGLOBIN 12.7 g/dL (13.3-17.7); LYMPHOCYTES # (AUTO) 1.1 10^3/uL (1.0-4.0); LYMPHOCYTES % (AUTO) 12 % (12-44); MEAN CORPUSCULAR HEMOGLOBIN 29 pg (25-34); MEAN CORPUSCULAR HGB CONC 32 g/dL (32-36); MEAN CORPUSCULAR VOLUME 90 fL (80-99); MEAN PLATELET VOLUME 9.7 fL (9.0-12.2); MONOCYTES # (AUTO) 1.2 10^3/uL (0.0-1.0); MONOCYTES % (AUTO) 14 % (0-12); NEUTROPHILS # (AUTO) 6.4 10^3/uL (1.8-7.8); NEUTROPHILS % (AUTO) 72 % (42-75); PLATELET COUNT 302 10^3/uL (130-400); WHITE BLOOD COUNT 8.9 10^3/uL (4.3-11.0)
[2021-06-09] MEDS: RT--FLUTICASONE/SALMETEROL 232-14 (AIRDUO RespiCLICK) IH SCH ×2 (07:08→21:55)
[2021-06-09] MEDS: UMECLIDINIUM BROMIDE (INCRUSE ELLIPTA) 7'S IH SCH (07:08)
[2021-06-09 07:12] LABS: ALBUMIN 3.8 GM/DL (3.2-4.5); POTASSIUM 3.7 MMOL/L (3.6-5.0)
[2021-06-09 07:14] LABS: CALCIUM 9.1 MG/DL (8.5-10.1)
[2021-06-09 07:15] LABS: TOTAL PROTEIN 6.8 GM/DL (6.4-8.2)
[2021-06-09 07:17] LABS: BILIRUBIN,TOTAL 0.9 MG/DL (0.1-1.0)
[2021-06-09 07:19] LABS: CREATININE SERUM 1.04 MG/DL (0.60-1.30)
[2021-06-09 07:27] VITALS: BP 118/71
[2021-06-09] MEDS: APIXABAN 5 MG (ELIQUIS) TABLET PO SCH ×2 (08:12→21:03)
[2021-06-09] MEDS: dilTIAZem120 MG (CARDIZEM CD) CAP PO SCH (08:12)
--- NOTE | 2021-06-09 08:57 | Diagnostic Imaging Report ---
EXAMINATION: Chest 2 view HISTORY: Heart failure COMPARISON: 06/08/2021 FINDINGS: Stable enlargement of the cardiac silhouette with prominence of the pulmonary vasculature. There are patchy interstitial opacities seen within both lungs, unchanged from 06/08/2021. Degenerative changes of the thoracic spine. Osseous structures are otherwise intact. IMPRESSION: 1. Stable cardiomegaly and diffuse interstitial opacities throughout both lungs. Dictated by: Dictated on workstation # [id number]
--- NOTE | 2021-06-09 10:50 | Physical Therapy Daily Note ---
PT Daily Note-Current Subjective Patient is in bed with family present. Agrees to PT. Mental Status Patient Orientation: Normal For Age Attachments: Oxygen (8L HF NC) Transfers SCALE: Activities may be completed with or without assistive devices. 4-Hhewxalnbk-dvtmhxi completes the activity by him/herself with no assistance from a helper. 5-Set-up or Clean-up Assistance-helper sets up or cleans up; patient completes activity. [place] assists only prior to or following the activity. 4-Supervision or Touching Assistance-helper provides verbal cues and/or touching/steadying and/or contact guard assistance as patient completes activity. Assistance may be provided throughout the activity or intermittently. 3-Partial/Moderate Assistance-helper does LESS THAN HALF the effort. [place] lifts, holds or supports trunk or limbs, but provides less than half the effort. 2-Substantial/Maximal Assistance-helper does MORE THAN HALF the effort. [place] lifts or holds trunk or limbs and provides more than half the effort. 9-Rzgbrhsyt-iyelds does ALL the effort. Patient does none of the effort to complete the activity. Or, the assistance of 2 or more helpers is required for the patient to complete the activity. If activity was not attempted, code reason: 7-Patient Refused. 9-Not Applicable-not attempted and the patient did not perform the activity before the current illness, exacerbation or injury. 10-Not Attempted due to Environmental Limitations-(lack of equipment, weather restraints, etc.). 88-Not Attempted due to Medical Conditions or Safety Concerns. Lying to Sitting/Side of Bed(Q: 6 Sit to Stand (QC): 5 Chair/Apz-ko-Jndqc Xfer(QC): 5 Weight Bearing Full Weight Bearing Full Weight Bearing Gait Training Does the Patient Walk?: Yes Distance: 225' Walk 10 feet (QC): 4 Walk 50 ft with 2 Turns(QC): 4 Walk 150 ft (QC): 4 Gait Assistive Device: FWW SBA for safety/FWW for distance Exercises Seated Therapy Exercises: Long arc quads Seated Reps: 12 Assessment Patient is up in recliner with needs met. SAO2 on 10L with activity 87% with quick recovery. Continue to increase activity to address pulmonary function. PT Penitentiary Goals Chucking Lathe Operator Goals PT Penitentiary Goals Time Frame: Jun 14, 2021 Roll Left & Right (QC): 6 Sit to Lying (QC): 6 Lying-Sitting on Side/Bed(QC): 6 Sit to Stand (QC): 6 Chair/Emq-ee-Dtnct Xfer(QC): 6 Walk 10 feet (QC): 6 PT Plan Treatment/Plan Treatment Plan: Continue Plan of Care Treatment Plan: Bed Mobility, Education, Functional Activity Tonya, Functional Strength, Gait, Safety, Therapeutic Exercise, Transfers Treatment Duration: Jun 14, 2021 Frequency: 6 times per week Estimated Hrs Per Day: .25 hour per day Patient and/or Family Agrees t: Yes Time/GCodes Time In: 931 Time Out: 941 Total Billed Treatment Time: 10 Total Billed Treatment 1 visit FA 10 min COLE ESCALERA PT Jun 09, 2021 10:50
[2021-06-09 11:54] VITALS: BP 124/82
--- NOTE | 2021-06-09 12:08 | Cardiology Progress Note ---
Progress Note-Cardiology Events since last exam Date Seen by Provider: Jun 09, 2021 Time Seen by Provider: 12:06 Events since last exam I am following him for atrial fibrillation and heart failure. He was up walking in the rm today and felt like his breathing is getting better. Earlier today he had recurrent tachycardia that has persisted after he got his daily dose of diltiazem. I changed his beta nupur which he was taking at home over to diltiazem because of his underlying lung disease. He denies chest pain, palpitations, or syncope. He has persistent mild ankle edema. Certain portions of this document may have been dictated utilizing voice recognition technology. Inherent to this technology, typographical and grammatical errors may exist. As much as I am diligent to identify and correct these mistakes, some errors may remain in the document. Vitals Last set of Vitals Signs Vital Signs 06/09/21 06/09/21 11:54 12:04 Temp 35.9 Pulse 121 Resp 24 B/P (MAP) 124/82 (96) Pulse Ox 91 O2 Delivery High Flow N/C O2 Flow Rate 8.00 Labs Labs Laboratory Tests 06/09/21 05:55 Exam Vital Signs Vital Signs Date Time Temp Pulse Resp B/P (MAP) Pulse Ox O2 Delivery O2 Flow Rate FiO2 06/09/21 12:04 121 06/09/21 11:54 35.9 24 124/82 (96) 91 High Flow N/C 8.00 Physical Exam General: Alert. No acute distress. He is obese. He is wearing oxygen by nasal cannula. Eye: No xanthelasma. HENT: Normocephalic. Neck: Jugular venous pressure does not appear elevated. Respiratory: Lungs have bibasilar crackles. Respirations are non-labored. Breath sounds are equal. Symmetrical chest wall expansion. Cardiovascular: Tachycardia with irregular rhythm. No murmur. No gallop. 1+ bilateral pretibial edema. Gastrointestinal: Soft. Normal bowel sounds. Skin: Warm. Dry. Neurologic: Alert and oriented to person, place, time. Cranial nerves 3-11 grossly intact. Psychiatric: Cooperative. Appropriate mood & affect. Labs Laboratory Tests Test 06/08/21 15:57 06/08/21 20:50 06/09/21 05:55 06/09/21 06:08 Range/Units Glucometer 142 H 187 H 132 H 70-110 MG/DL White Blood Count 8.9 4.3-11.0 10^3/uL Red Blood Count 4.38 4.30-5.52 10^6/uL Hemoglobin 12.7 L 13.3-17.7 g/dL Hematocrit 39 L 40-54 % Mean Corpuscular Volume 90 80-99 fL Mean Corpuscular Hemoglobin 29 25-34 pg Mean Corpuscular Hemoglobin Concent 32 32-36 g/dL Red Cell Distribution Width 17.5 H 10.0-14.5 % Platelet Count 302 130-400 10^3/uL Mean Platelet Volume 9.7 9.0-12.2 fL Immature Granulocyte % (Auto) 0 % Neutrophils (%) (Auto) 72 42-75 % Lymphocytes (%) (Auto) 12 12-44 % Monocytes (%) (Auto) 14 H 0-12 % Eosinophils (%) (Auto) 2 0-10 % Basophils (%) (Auto) 1 0-10 % Neutrophils # (Auto) 6.4 1.8-7.8 10^3/uL Lymphocytes # (Auto) 1.1 1.0-4.0 10^3/uL Monocytes # (Auto) 1.2 H 0.0-1.0 10^3/uL Eosinophils # (Auto) 0.1 0.0-0.3 10^3/uL Basophils # (Auto) 0.1 0.0-0.1 10^3/uL Immature Granulocyte # (Auto) 0.0 0.0-0.1 10^3/uL Sodium Level 140 135-145 MMOL/L Potassium Level 3.7 3.6-5.0 MMOL/L Chloride Level 96 L 98-107 MMOL/L Carbon Dioxide Level 31 21-32 MMOL/L Anion Gap 13 5-14 MMOL/L Blood Urea Nitrogen 18 7-18 MG/DL Creatinine 1.04 0.60-1.30 MG/DL Estimat Glomerular Filtration Rate 68 BUN/Creatinine Ratio 17 Glucose Level 128 H 70-105 MG/DL Calcium Level 9.1 8.5-10.1 MG/DL Corrected Calcium 9.3 8.5-10.1 MG/DL Total Bilirubin 0.9 0.1-1.0 MG/DL Aspartate Amino Transf (AST/SGOT) 18 5-34 U/L Alanine Aminotransferase (ALT/SGPT) 15 0-55 U/L Alkaline Phosphatase 53 40-136 U/L Total Protein 6.8 6.4-8.2 GM/DL Albumin 3.8 3.2-4.5 GM/DL Test 06/09/21 11:10 Range/Units Glucometer 181 H 70-110 MG/DL Diagnosis/Problems Diagnosis/Problems (1) Acute on chronic heart failure with preserved ejection fraction (HFpEF) Assessment & Plan: His chest x-rays have shown evidence of pulmonary edema and his BNP level was elevated. He is now on intravenous furosemide and I changed this to twice daily dosing on 06/08. His breathing is starting to improve. He was with his daughter today who tells me that he has not been seen a microeconomics professor in [place]. He plans to follow-up with me after discharge. (2) Permanent atrial fibrillation Assessment & Plan: He was on metoprolol tartrate for rate control but this is currently on hold. Given his probable underlying chronic obstructive pulmonary disease, I have changed the metoprolol over to diltiazem. Due to persistent ta chycardia, I will give him an extra dose of diltiazem today and double his daily dose tomorrow. He should continue apixaban for stroke prophylaxis. (3) Mitral regurgitation Assessment & Plan: His echocardiogram from this admission shows moderate mitral regurgitation. This will need to be followed longitudinally. I would not expect this to be contributing to his current symptoms. (4) Pulmonary hypertension Assessment & Plan: Exact etiology unclear. I suspect this is a chronic finding in the patient due to his chronic heart failure and probably underlying pulmonary disease. He should continue on home oxygen and this condition will need to be followed longitudinally. (5) Primary hypertension Assessment & Plan: Blood pressures have waxed and waned. As above, I will double his dose of diltiazem due to persistent tachycardia. (6) Stage 3 chronic kidney disease Assessment & Plan: We will need to watch his renal function closely with the intravenous furosemide. ENZO PEDERSON JR, MD Jun 09, 2021 12:08
[2021-06-09] MEDS ORDERED: dilTIAZem120 MG (CARDIZEM CD) CAP PO ONE (12:30)
--- NOTE | 2021-06-09 12:44 | Progress Note ---
KIRSTEN SALAS 06/09/21 1244: Subjective Date Seen by a Provider: Jun 09, 2021 Time Seen by a Provider: 09:00 Subjective/Events-last exam This is an 85 y/o male with a hx of CHF, COPD oxygen dependent, Afib, and Insulin dependent type 2 DM that was admitted to the hospital for acute exacerbation of CHF. Pt state that he is doing well today, although he admits to still having some labored breathing and [place]. He states that he has been eating and drinking well and reports good sleep last night. Review of Systems General: No Chills HEENT: No Head Aches, No Visual Changes Pulmonary: No Cough Cardiovascular: Edema; No: Chest Pain Gastrointestinal: No: Nausea, Vomiting, Abdominal Pain, Diarrhea, Constipation Genitourinary: No Dysuria, No Frequency Neurological: No: Confusion Objective Exam Last Set of Vital Signs Vital Signs Date Time Temp Pulse Resp B/P (MAP) Pulse Ox O2 Delivery O2 Flow Rate FiO2 06/09/21 12:18 130 06/09/21 11:54 35.9 24 124/82 (96) 91 High Flow N/C 8.00 Capillary Refill : Less Than 3 Seconds I&O Intake and Output 06/08/21 23:59 Intake Total 3055 ml Output Total 6425 ml Balance -3370 ml Intake Oral 3055 ml Output Urine Total 6425 ml # Bowel Movements 1 General: Alert, Oriented X3, Cooperative HEENT: Atraumatic, PERRLA, EOMI, Mucous Memb Moist/[place] Neck: Supple Lungs: Clear to Auscultation (Crackles present in all lung vela) Heart: Regular Rate (irregularly irregular), No Murmurs Abdomen: Soft, No Tenderness Extremities: No Edema (mild LE edema; improved over previous) Skin: No Rashes, No Breakdown Neuro: Normal Speech Results Lab Laboratory Tests 06/08/21 15:57: Glucometer 142H 06/08/21 20:50: Glucometer 187H 06/09/21 05:55: White Blood Count 8.9, Red Blood Count 4.38, Hemoglobin 12.7L, Hematocrit 39L, Mean Corpuscular Volume 90, Mean Corpuscular Hemoglobin 29, Mean Corpuscular Hemoglobin Concent 32, Red Cell Distribution Width 17.5H, Platelet Count 302, Mean Platelet Volume 9.7, Immature Granulocyte % (Auto) 0, Neutrophils (%) (Auto) 72, Lymphocytes (%) (Auto) 12, Monocytes (%) (Auto) 14H, Eosinophils (%) (Auto) 2, Basophils (%) (Auto) 1, Neutrophils # (Auto) 6.4, Lymphocytes # (Auto) 1.1, Monocytes # (Auto) 1.2H, Eosinophils # (Auto) 0.1, Basophils # (Auto) 0.1, Immature Granulocyte # (Auto) 0.0, Sodium Level 140, Potassium Level 3.7, Chloride Level 96L, Carbon Dioxide Level 31, Anion Gap 13, Blood Urea Nitrogen 18, Creatinine 1.04, Estimat Glomerular Filtration Rate 68, BUN/Creatinine Ratio 17, Glucose Level 128H, Calcium Level 9.1, Corrected Calcium 9.3, Total Bilirubin 0.9, Aspartate Amino Transf (AST/SGOT) 18, Alanine Aminotransferase (ALT/SGPT) 15, Alkaline Phosphatase 53, Total Protein 6.8, Albumin 3.8 06/09/21 06:08: Glucometer 132H 06/09/21 11:10: Glucometer 181H Assessment/Plan Assessment/Plan Assess & Plan/Chief Complaint This is 85 yo M with a history of CHF, COPD oxygen dependent, Afib, and Insulin dependent type 2 DM that was admitted to the hospital on 06/06/21 for acute exacerbation of CHF Diagnosis/Problems Diagnosis/Problems (1) Acute on chronic heart failure with preserved ejection fraction (HFpEF) Status: Acute Assessment & Plan: ACC/AHA stage C - Echo 06/07/21 shows EF 50-55%, severe concentric hypertrophy - BNP 2967 on 06/06/21 - Continue diuresis to goal dry WT of 101 kg - strict I & Os, daily WTs, cardiac diet, low Na diet (2) Permanent atrial fibrillation Status: Chronic Assessment & Plan: - EKG 06/09/21: afib with RVR , rate 108 bpm - [id number]: 5; 7.2% stroke risk per year - HAS-BLED: 1; relatively low risk - rate control: Diltiazem 120mg QD - AC tx: Apixaban 5mg - keep K > 4, Mag > 2 - cards following; appreciate recs GERI GONZALEZ DO 06/10/21 0557: Subjective Subjective/Events-last exam Pt having no new issues IV diuresis is helping Labs stable Has lost about 10lbs of fluid Improved edema of the legs Remains on 8L of O2 at baseline Bowels are moving Checked meds and labs Review of Systems General: Fatigue Pulmonary: Dyspnea Objective Exam Lungs: Clear to Auscultation, Normal Air Movement Psych/Mental Status: Mental Status NL, Mood NL Assessment/Plan Assessment/Plan Assess & Plan/Chief Complaint Diuresis Monitor labs Appreciated Cardiology Supervisory-Addendum Brief Verification & Attestation Participated in pt care: history, MDM, physical Personally performed: exam, history, MDM, supervision of care Care discussed with: Medical Student Procedures: n/a Results interpretation: Verified all documentation Verification and Attestation of Medical Student E/M Service A medical student performed and documented this service in my presence. I reviewed and verified all information documented by the medical student and made modifications to such information, when appropriate. I personally performed the physical exam and medical decision making. Geri Gonzalez Jun 10, 2021,05:45 KIRSTEN SALAS Jun 09, 2021 12:44 GERI GONZALEZ DO Jun 10, 2021 05:46
--- NOTE | 2021-06-09 14:45 | Occupational Ther Daily Note ---
OT Current Status-Daily Note Subjective Pt alert, lying in bed. Pt agrees to therapy. No c/o pain. Monitoring O2 sats, decreased to 87% with activity, recovered quickly. Mental Status/Objective Patient Orientation: Person, Place, Time, Situation Attachments: IV, Oxygen ([id number]) ADL-Treatment Therapy Code Descriptions/Definitions Functional [place] Measure: 0=Not Assessed/NA 4=Minimal Assistance 1=Total Assistance 5=Supervision or Setup 2=Maximal Assistance 6=Modified [place] 3=Moderate Assistance 7=Complete IndependenceSCALE: Activities may be completed with or without assistive devices. 9-Clkdqmowam-krlrjxn completes the activity by him/herself with no assistance from a helper. 5-Set-up or Clean-up Assistance-helper sets up or cleans up; patient completes activity. [place] assists only prior to or following the activity. 4-Supervision or Touching Assistance-helper provides verbal cues and/or touching/steadying and/or contact guard assistance as patient completes activity. Assistance may be provided throughout the activity or intermittently. 3-Partial/Moderate Assistance-helper does LESS THAN HALF the effort. [place] lifts, holds or supports trunk or limbs, but provides less than half the effort. 2-Substantial/Maximal Assistance-helper does MORE THAN HALF the effort. [place] lifts or holds trunk or limbs and provides more than half the effort. 3-Kesvaorcx-nwyhhv does ALL the effort. Patient does none of the effort to complete the activity. Or, the assistance of 2 or more helpers is required for the patient to complete the activity. If activity was not attempted, code reason: 7-Patient Refused. 9-Not Applicable-not attempted and the patient did not perform the activity before the current illness, exacerbation or injury. 10-Not Attempted due to Environmental Limitations-(lack of equipment, weather restraints, etc.). 88-Not Attempted due to Medical Conditions or Safety Concerns. Toilet Transfer (QC): 6 Other Treatment Supine to EOB independent. Independent reaching down to feet and adjusting soc ks. Pt declines any further ADLs. Pt did ambulate to bathroom using FWW with SBA for safety and manipulate O2 tubing to sit on toilet while housekeeping emptied trash and linens, toilet transfer independent. Pt able to ambulate around room 2x's using FWW though requires assistance with O2 tubing. After session, pt sitting EOB with call light/phone in reach. All needs met in room. OT Detention Goals Detention Goals Time Frame: Jun 14, 2021 Oral Hygiene (QC): 5 Toileting Hygiene (QC): 5 Upper Body Dressing (QC): 5 Lower Body Dressing (QC): 5 1=Demonstrate adherence to instructed precautions during ADL tasks. 2=Patient will verbalize/demonstrate understanding of assistive devices/modifications for ADL. 3=Patient will improve strength/tolerance for activity to enable patient to perform ADL's. OT Education/Plan Problem List/Assessment Assessment: Decreased Activ Tolerance, Decreased Safety Aware, Impaired Self- Care Skills Discharge Recommendations Plan/Recommendations: Continue POC Treatment Plan/Plan of Care Patient would benefit from OT for education, treatment and training to promote independence in ADL's, mobility, safety and/or upper extremity function for ADL's. Plan of Care: ADL Retraining, Functional Mobility, UE Funct Exercise/Act Treatment Duration: Jun 14, 2021 Frequency: 3 times per week Estimated Hrs Per Day: .25 hour per day Agreement: Yes Rehab Potential: Fair Time/GCodes Start Time: 13:36 Stop Time: 13:47 Total Time Billed (hr/min): 11 Billed Treatment Time 1 visit-FA 1 (11 min) NANCY GEORGE Jun 09, 2021 14:45
[2021-06-09 16:00] VITALS: BP 119/99
[2021-06-09] MEDS: SOD CHL GEL 0.5 OZ (AYR SALINE NASAL GEL) TUBE NS PRN (17:12)
[2021-06-09 19:51] VITALS: BP 149/79
[2021-06-09] MEDS: MONTELUKAST 10 MG (SINGULAIR) TAB PO SCH (21:03)
[2021-06-10 00:14] VITALS: BP 105/56
[2021-06-10] MEDS: RT-ALBUTEROL/IPRATROPIUM 3 ML (DUONEB) VIAL INH SCH ×6 (03:13→22:00)
[2021-06-10 03:58] VITALS: BP 103/56
[2021-06-10] MEDS: CATHETER FLUSH 10 ML SYR IV SCH ×3 (05:41→20:29)
[2021-06-10] MEDS: inSUlin ASPART (NovoLOG) 1 UNIT/0.01 ML (CHARGE PER UNIT) SC SCH ×4 (05:42→20:28)
[2021-06-10] MEDS: FUROSEMIDE 40 MG/4 ML INJ (LASIX) IV SCH ×2 (06:15→17:54)
[2021-06-10 06:52] LABS: BASOPHILS # (AUTO) 0.1 10^3/uL (0.0-0.1); BASOPHILS % (AUTO) 1 % (0-10); EOSINOPHILS # (AUTO) 0.2 10^3/uL (0.0-0.3); EOSINOPHILS % (AUTO) 2 % (0-10); HEMATOCRIT 39 % (40-54); HEMOGLOBIN 12.3 g/dL (13.3-17.7); LYMPHOCYTES % (AUTO) 11 % (12-44); MEAN CORPUSCULAR HEMOGLOBIN 29 pg (25-34); MEAN CORPUSCULAR HGB CONC 32 g/dL (32-36); MEAN CORPUSCULAR VOLUME 90 fL (80-99); MEAN PLATELET VOLUME 9.8 fL (9.0-12.2); MONOCYTES # (AUTO) 1.3 10^3/uL (0.0-1.0); MONOCYTES % (AUTO) 14 % (0-12); NEUTROPHILS # (AUTO) 6.4 10^3/uL (1.8-7.8); NEUTROPHILS % (AUTO) 72 % (42-75); PLATELET COUNT 279 10^3/uL (130-400); WHITE BLOOD COUNT 8.9 10^3/uL (4.3-11.0)
[2021-06-10 07:00] LABS: ALBUMIN 3.6 GM/DL (3.2-4.5); POTASSIUM 3.9 MMOL/L (3.6-5.0)
[2021-06-10 07:03] LABS: TOTAL PROTEIN 6.5 GM/DL (6.4-8.2)
[2021-06-10 07:04] LABS: BILIRUBIN,TOTAL 0.9 MG/DL (0.1-1.0)
[2021-06-10 07:06] LABS: CREATININE SERUM 1.07 MG/DL (0.60-1.30)
[2021-06-10] MEDS: RT--FLUTICASONE/SALMETEROL 232-14 (AIRDUO RespiCLICK) IH SCH ×2 (07:13→18:53)
[2021-06-10] MEDS: UMECLIDINIUM BROMIDE (INCRUSE ELLIPTA) 7'S IH SCH (07:13)
[2021-06-10 08:00] VITALS: BP 139/70
[2021-06-10] MEDS: APIXABAN 5 MG (ELIQUIS) TABLET PO SCH ×2 (08:48→20:27)
--- NOTE | 2021-06-10 10:10 | Cardiology Progress Note ---
Progress Note-Cardiology Events since last exam Date Seen by Provider: Jun 10, 2021 Time Seen by Provider: 10:05 Events since last exam I am following him due to heart failure and permanent atrial fibrillation. He feels as though his breathing is much better today. He still has some mild ankle edema. He denies chest discomfort, palpitations, or syncope. Certain portions of this document may have been dictated utilizing voice recognition technology. Inherent to this technology, typographical and grammati jewel errors may exist. As much as I am diligent to identify and correct these mistakes, some errors may remain in the document. Vitals Last set of Vitals Signs Vital Signs 06/10/21 06/10/21 06/10/21 06/10/21 03:58 07:00 07:12 08:51 Temp 36.6 Pulse 89 Resp 18 B/P (MAP) 103/56 (72) Pulse Ox 93 O2 Delivery High Flow N/C O2 Flow Rate 10.00 Labs Labs Laboratory Tests 06/10/21 06:18 Exam Vital Signs Vital Signs Date Time Temp Pulse Resp B/P (MAP) Pulse Ox O2 Delivery O2 Flow Rate FiO2 06/10/21 08:51 High Flow N/C 10.00 06/10/21 07:12 93 06/10/21 07:00 89 06/10/21 03:58 36.6 18 103/56 (72) Physical Exam General: Alert. No acute distress. He is obese. Eye: No xanthelasma. HENT: Normocephalic. Neck: Jugular venous pressure does not appear elevated. Respiratory: Lungs have bibasilar crackles approximately a third [address] way up bilaterally. Respirations are non-labored. Breath sounds are equal. Symmetrical chest wall expansion. Cardiovascular: Normal rate. Irregular rhythm. No murmur. No gallop. 1+ bilateral pretibial edema. Gastrointestinal: Soft. Normal bowel sounds. Skin: Warm. Dry. Neurologic: Alert and oriented to person, place, time. Cranial nerves 3-11 grossly intact. Psychiatric: Cooperative. Appropriate mood & affect. Labs Laboratory Tests Test 06/09/21 11:10 06/09/21 16:28 06/09/21 20:24 06/10/21 05:34 Range/Units Glucometer 181 H 127 H 212 H 149 H 70-110 MG/DL Test 06/10/21 06:18 Range/Units White Blood Count 8.9 4.3-11.0 10^3/uL Red Blood Count 4.30 4.30-5.52 10^6/uL Hemoglobin 12.3 L 13.3-17.7 g/dL Hematocrit 39 L 40-54 % Mean Corpuscular Volume 90 80-99 fL Mean Corpuscular Hemoglobin 29 25-34 pg Mean Corpuscular Hemoglobin Concent 32 32-36 g/dL Red Cell Distribution Width 17.2 H 10.0-14.5 % Platelet Count 279 130-400 10^3/uL Mean Platelet Volume 9.8 9.0-12.2 fL Immature Granulocyte % (Auto) 1 % Neutrophils (%) (Auto) 72 42-75 % Lymphocytes (%) (Auto) 11 L 12-44 % Monocytes (%) (Auto) 14 H 0-12 % Eosinophils (%) (Auto) 2 0-10 % Basophils (%) (Auto) 1 0-10 % Neutrophils # (Auto) 6.4 1.8-7.8 10^3/uL Lymphocytes # (Auto) 1.0 1.0-4.0 10^3/uL Monocytes # (Auto) 1.3 H 0.0-1.0 10^3/uL Eosinophils # (Auto) 0.2 0.0-0.3 10^3/uL Basophils # (Auto) 0.1 0.0-0.1 10^3/uL Immature Granulocyte # (Auto) 0.0 0.0-0.1 10^3/uL Sodium Level 140 135-145 MMOL/L Potassium Level 3.9 3.6-5.0 MMOL/L Chloride Level 96 L 98-107 MMOL/L Carbon Dioxide Level 32 21-32 MMOL/L Anion Gap 12 5-14 MMOL/L Blood Urea Nitrogen 20 H 7-18 MG/DL Creatinine 1.07 0.60-1.30 MG/DL Estimat Glomerular Filtration Rate 66 BUN/Creatinine Ratio 19 Glucose Level 147 H 70-105 MG/DL Calcium Level 9.0 8.5-10.1 MG/DL Corrected Calcium 9.3 8.5-10.1 MG/DL Total Bilirubin 0.9 0.1-1.0 MG/DL Aspartate Amino Transf (AST/SGOT) 20 5-34 U/L Alanine Aminotransferase (ALT/SGPT) 19 0-55 U/L Alkaline Phosphatase 50 40-136 U/L Total Protein 6.5 6.4-8.2 GM/DL Albumin 3.6 3.2-4.5 GM/DL Diagnosis/Problems Diagnosis/Problems (1) Acute on chronic heart failure with preserved ejection fraction (HFpEF) Status: Acute Assessment & Plan: His chest x-rays have shown evidence of pulmonary edema and his BNP level was elevated. He is now on intravenous furosemide and I changed this to twice daily dosing on 06/08. His breathing continues to improve but clinically he still has some decompensation of his heart failure. We will continue intravenous furosemide twice daily and I will obtain a follow-up chest x-ray in the morning. His renal function has been tolerating this dose of furosemide. He plans to follow-up with me after discharge. (2) Permanent atrial fibrillation Status: Chronic Assessment & Plan: He was on metoprolol tartrate at home for rate control but t his was discontinued due to his chronic obstructive pulmonary disease. I changed the metoprolol over to diltiazem. Due to persistent tachycardia, I gave him an extra dose of diltiazem on 06/09 and as of 06/10, doubled the dose of oral diltiazem. He is on apixaban for stroke prophylaxis. Although he is over the age of [age], his weight is above 60 kg and creatinine less than 1.5. As such, there is no indication to lower the dose of apixaban. (3) Primary hypertension Assessment & Plan: Blood pressures have waxed and waned during this admission. His blood pressure is now improved on the higher dose of diltiazem. (4) Pulmonary hypertension Assessment & Plan: I suspect this is a chronic finding in the patient due to his chronic heart failure and probably underlying pulmonary disease. He should continue on home oxygen and this condition will need to be followed longitudinally. Due to his advanced age, I do not see any indication for an extensive evaluation for other secondary causes of pulmonary hypertension as this would be unlikely to change his long-term prognosis. (5) Mitral regurgitation Assessment & Plan: His echocardiogram from this admission shows moderate mitral regurgitation. This will need to be followed longitudinally. I would not expect this to be contributing to his current symptoms. (6) Stage 3 chronic kidney disease Assessment & Plan: We will need to watch his renal function closely with the intravenous furosemide. ENZO PEDERSON JR, MD Jun 10, 2021 10:09
--- NOTE | 2021-06-10 10:51 | Occupational Ther Daily Note ---
OT Current Status-Daily Note Subjective Pt alert, lying in bed. Pt agrees to therapy, declines OOB tasks. No c/o pain only fatigue. Mental Status/Objective Patient Orientation: Person, Place, Time, Situation Attachments: IV, Oxygen (10L), Telemetry ADL-Treatment Per pt and daughter report, pt had shower yesterday and all that daughter assisted with was to wash pt's back. Pt stated that it is hard to dry buttocks and feet. LOPEZ gave strategies for pt to use when completing theses tasks efficiently and independently. Therapy Code Descriptions/Definitions Functional [place] Measure: 0=Not Assessed/NA 4=Minimal Assistance 1=Total Assistance 5=Supervision or Setup 2=Maximal Assistance 6=Modified [place] 3=Moderate Assistance 7=Complete IndependenceSCALE: Activities may be completed with or without assistive devices. 4-Nrdbvioxbu-vtgiblt completes the activity by him/herself with no assistance from a helper. 5-Set-up or Clean-up Assistance-helper sets up or cleans up; patient completes activity. [place] assists only prior to or following the activity. 4-Supervision or Touching Assistance-helper provides verbal cues and/or touching/steadying and/or contact guard assistance as patient completes activity. Assistance may be provided throughout the activity or intermittently. 3-Partial/Moderate Assistance-helper does LESS THAN HALF the effort. [place] lifts, holds or supports trunk or limbs, but provides less than half the effort. 2-Substantial/Maximal Assistance-helper does MORE THAN HALF the effort. [place] lifts or holds trunk or limbs and provides more than half the effort. 6-Wbxrczqag-fttyye does ALL the effort. Patient does none of the effort to complete the activity. Or, the assistance of 2 or more helpers is required for the patient to complete the activity. If activity was not attempted, code reason: 7-Patient Refused. 9-Not Applicable-not attempted and the patient did not perform the activity before the current illness, exacerbation or injury. 10-Not Attempted due to Environmental Limitations-(lack of equipment, weather restraints, etc.). 88-Not Attempted due to Medical Conditions or Safety Concerns. Other Treatment Pt completed 1 set 20 reps of 3 B UE exercises against gravity in all planes. Pt tolerated well but required vc to stay focused on task. After session, pt lying in bed with call light/phone in reach. All needs met in room. OT Correction Goals Correction Goals Time Frame: Jun 14, 2021 Oral Hygiene (QC): 5 Toileting Hygiene (QC): 5 Upper Body Dressing (QC): 5 Lower Body Dressing (QC): 5 1=Demonstrate adherence to instructed precautions during ADL tasks. 2=Patient will verbalize/demonstrate understanding of assistive d evices/modifications for ADL. 3=Patient will improve strength/tolerance for activity to enable patient to perform ADL's. OT Education/Plan Problem List/Assessment Assessment: Decreased Activ Tolerance, Decreased UE Strength, Impaired Self- Care Skills Discharge Recommendations Plan/Recommendations: Continue POC Treatment Plan/Plan of Care Patient would benefit from OT for education, treatment and training to promote independence in ADL's, mobility, safety and/or upper extremity function for ADL's. Plan of Care: ADL Retraining, Functional Mobility, UE Funct Exercise/Act Treatment Duration: Jun 14, 2021 Frequency: 3 times per week Estimated Hrs Per Day: .25 hour per day Agreement: Yes Rehab Potential: Fair Time/GCodes Start Time: 10:13 Stop Time: 10:23 Total Time Billed (hr/min): 10 Billed Treatment Time 1 visit-EX 1 (10 min) NANCY GEORGE Jun 10, 2021 10:51
--- NOTE | 2021-06-10 11:31 | Physical Therapy Daily Note ---
PT Daily Note-Current Subjective Patient agrees to PT. Currently on 10L O2 HF. Mental Status Patient Orientation: Normal For Age Attachments: Oxygen Transfers SCALE: Activities may be completed with or without assistive devices. 0-Nokewwxdvh-qsadmwt completes the activity by him/herself with no assistance from a helper. 5-Set-up or Clean-up Assistance-helper sets up or cleans up; patient completes activity. [place] assists only prior to or following the activity. 4-Supervision or Touching Assistance-helper provides verbal cues and/or touching/steadying and/or contact guard assistance as patient completes activity. Assistance may be provided throughout the activity or intermittently. 3-Partial/Moderate Assistance-helper does LESS THAN HALF the effort. [place] lifts, holds or supports trunk or limbs, but provides less than half the effort. 2-Substantial/Maximal Assistance-helper does MORE THAN HALF the effort. [place] lifts or holds trunk or limbs and provides more than half the effort. 3-Ylnqmtbof-dblgto does ALL the effort. Patient does none of the effort to complete the activity. Or, the assistance of 2 or more helpers is required for the patient to complete the activity. If activity was not attempted, code reason: 7-Patient Refused. 9-Not Applicable-not attempted and the patient did not perform the activity before the current illness, exacerbation or injury. 10-Not Attempted due to Environmental Limitations-(lack of equipment, weather restraints, etc.). 88-Not Attempted due to Medical Conditions or Safety Concerns. Lying to Sitting/Side of Bed(Q: 6 Sit to Stand (QC): 4 Chair/Yco-ut-Cjwey Xfer(QC): 4 Weight Bearing Full Weight Bearing Full Weight Bearing Gait Training Does the Patient Walk?: No and Walking Goal IS indicated Distance: 225' Walk 10 feet (QC): 4 Walk 50 ft with 2 Turns(QC): 4 Walk 150 ft (QC): 4 Gait Assistive Device: FWW functional gait sequence with standing recovery period due to mild SOA Assessment Patient up in recliner with family present. SAO2 decreased to 87% with activity. Continue to address pulmonary function with functional mobility. PT Usp Goals Usp Goals PT Occasional Babysitter Goals Time Frame: Jun 14, 2021 Roll Left & Right (QC): 6 Sit to Lying (QC): 6 Lying-Sitting on Side/Bed(QC): 6 Sit to Stand (QC): 6 Chair/Twx-ll-Pllvp Xfer(QC): 6 Walk 10 feet (QC): 6 PT Plan Treatment/Plan Treatment Plan: Continue Plan of Care Treatment Plan: Bed Mobility, Education, Functional Activity Tonya, Functional Strength, Gait, Safety, Therapeutic Exercise, Transfers Treatment Duration: Jun 14, 2021 Frequency: 6 times per week Estimated Hrs Per Day: .25 hour per day Patient and/or Family Agrees t: Yes Time/GCodes Time In: 1037 Time Out: 1047 Total Billed Treatment Time: 10 Total Billed Treatment 1 visit FA 10 min COLE ESCALERA PT Jun 10, 2021 11:31
[2021-06-10 12:00] VITALS: BP 124/68
--- NOTE | 2021-06-10 12:09 | Progress Note ---
KIRSTEN SALAS 06/10/21 1208: Subjective Date Seen by a Provider: Jun 10, 2021 Time Seen by a Provider: 08:30 Subjective/Events-last exam This is an 85 y/o male with a hx of CHF, COPD oxygen dependent, Afib, and Insulin dependent type 2 DM that was admitted to the hospital for acute exacerbation of CHF. Pt states that he is doing ok this morning, although he admits to still having some labored breathing, [place], and LE edema. He states that he has been eating and drinking well. He reports that he did not sleep well last night due to interruptions and needing to urinate due to his lasix. His O2 requirements are increased today to 15L from 8L yesterday. Review of Systems General: No Chills HEENT: No Head Aches, No Visual Changes, No Sore Throat Pulmonary: No Dyspnea; Cough Cardiovascular: Edema; No: Chest Pain Gastrointestinal: No: Nausea, Vomiting, Abdominal Pain, Diarrhea, Constipation Genitourinary: No Dysuria, No Frequency Neurological: No: Weakness, Numbness, Confusion Objective Exam Last Set of Vital Signs Vital Signs Date Time Temp Pulse Resp B/P (MAP) Pulse Ox O2 Delivery O2 Flow Rate FiO2 06/10/21 10:25 88 High Flow N/C 10.00 06/10/21 08:00 36.1 102 16 139/70 (93) Capillary Refill : Less Than 3 Seconds I&O Intake and Output 06/10/21 00:00 Intake Total 2290 ml Output Total 5075 ml Balance -2785 ml Intake Oral 2290 ml Output Urine Total 5075 ml General: Alert, Oriented X3, No Acute Distress HEENT: Atraumatic, PERRLA, EOMI, Mucous Memb Moist/[place] Neck: Supple Lungs: Other (Inspiratory crackles, primarily in the lower lung vela) Heart: No Murmurs, Other (Irregularly irregular rhythym) Abdomen: Soft, No Tenderness Extremities: Other (mild LE edema) Skin: No Rashes Neuro: Normal Speech Results Lab Laboratory Tests 06/09/21 16:28: Glucometer 127H 06/09/21 20:24: Glucometer 212H 06/10/21 05:34: Glucometer 149H 06/10/21 06:18: White Blood Count 8.9, Red Blood Count 4.30, Hemoglobin 12.3L, Hematocrit 39L, Mean Corpuscular Volume 90, Mean Corpuscular Hemoglobin 29, Mean Corpuscular Hemoglobin Concent 32, Red Cell Distribution Width 17.2H, Platelet Count 279, Mean Platelet Volume 9.8, Immature Granulocyte % (Auto) 1, Neutrophils (%) (Auto) 72, Lymphocytes (%) (Auto) 11L, Monocytes (%) (Auto) 14H, Eosinophils (%) (Auto) 2, Basophils (%) (Auto) 1, Neutrophils # (Auto) 6.4, Lymphocytes # (Auto) 1.0, Monocytes # (Auto) 1.3H, Eosinophils # (Auto) 0.2, Basophils # (Auto) 0.1, Immature Granulocyte # (Auto) 0.0, Sodium Level 140, Potassium Level 3.9, Chloride Level 96L, Carbon Dioxide Level 32, Anion Gap 12, Blood Urea Nitrogen 20H, Creatinine 1.07, Estimat Glomerular Filtration Rate 66, BUN/Creatinine Ratio 19, Glucose Level 147H, Calcium Level 9.0, Corrected Calcium 9.3, Total Bilirubin 0.9, Aspartate Amino Transf (AST/SGOT) 20, Alanine Aminotransferase (ALT/SGPT) 19, Alkaline Phosphatase 50, Total Protein 6.5, Albumin 3.6 06/10/21 11:23: Glucometer 178H Assessment/Plan Assessment/Plan Assess & Plan/Chief Complaint This is 85 yo M with a history of CHF, COPD oxygen dependent, Afib, and Insulin dependent type 2 DM that was admitted to the hospital on 06/06/21 for acute exacerbation of CHF Diagnosis/Problems Diagnosis/Problems (1) Acute on chronic heart failure with preserved ejection fraction (HFpEF) Status: Acute Assessment & Plan: ACC/AHA stage C - Pt -2785mL fluid balance yesterday; still at 103.9kg - Oxygen requirement increased today to 15L NC; will work to wean towards home O2 requirement (8-10L) - Echo 06/07/21 shows EF 50-55%, severe concentric hypertrophy - BNP 2967 on 06/06/21 - Continue diuresis to goal dry WT of 101 kg - strict I & Os, daily WTs, cardiac diet, low Na diet - Will reevaluate for d/c this weekend back to [facility] (2) Permanent atrial fibrillation Status: Chronic Assessment & Plan: - EKG 06/09/21: afib with RVR , rate 108 bpm - [id number]: 5; 7.2% stroke risk per year - HAS-BLED: 1; relatively low risk - rate control: Diltiazem 120mg QD - AC tx: Apixaban 5mg - keep K > 4, Mag > 2 - cards following; appreciate recs GERI GONZALEZ DO 06/11/21 0759: Subjective Subjective/Events-last exam Pt doing a lot better, but not positive thinking as his usual I recommended him to think positive thoughts Remains on 15L of O2 above his 8L normally 101kg is his dry weight Overall improved He goes to [facility] and his daughter is very involved Review of Systems General: Fatigue, Malaise Pulmonary: Dyspnea Objective Exam General: Alert, Oriented X3, Cooperative, No Acute Distress Lungs: Clear to Auscultation, Normal Air Movement Heart: Regular Rate, Normal S1, Normal S2, No Murmurs Psych/Mental Status: Mental Status NL, Mood NL Assessment/Plan Assessment/Plan Assess & Plan/Chief Complaint Aggressive care Insulin Lasix Supervisory-Addendum Brief Verification & Attestation Participated in pt care: history, MDM, physical Personally performed: exam, history, MDM, supervision of care Care discussed with: Medical Student Procedures: n/a Results interpretation: Verified all documentation Verification and Attestation of Medical Student E/M Service A medical student performed and documented this service in my presence. I reviewed and verified all information documented by the medical student and made modifications to such information, when appropriate. I personally performed the physical exam and medical decision making. Geri Gonzalez Jun 11, 2021,07:58 KIRSTEN SALAS Jun 10, 2021 12:08 GERI GONZALEZ DO Jun 11, 2021 07:59
[2021-06-10 16:44] VITALS: BP 157/76
[2021-06-10 20:14] VITALS: BP 149/79
[2021-06-10] MEDS: MONTELUKAST 10 MG (SINGULAIR) TAB PO SCH (20:27)
[2021-06-11] MEDS: RT-ALBUTEROL/IPRATROPIUM 3 ML (DUONEB) VIAL INH SCH ×4 (01:30→20:13)
[2021-06-11 06:05] LABS: POTASSIUM 3.8 MMOL/L (3.6-5.0)
[2021-06-11 06:06] LABS: CALCIUM 9.1 MG/DL (8.5-10.1)
[2021-06-11 06:11] LABS: CREATININE SERUM 0.96 MG/DL (0.60-1.30)
[2021-06-11] MEDS: inSUlin ASPART (NovoLOG) 1 UNIT/0.01 ML (CHARGE PER UNIT) SC SCH ×4 (06:17→20:36)
[2021-06-11] MEDS: CATHETER FLUSH 10 ML SYR IV SCH ×3 (06:17→19:39)
[2021-06-11] MEDS: FUROSEMIDE 40 MG/4 ML INJ (LASIX) IV SCH (06:58)
--- NOTE | 2021-06-11 09:08 | Physical Therapy Daily Note ---
PT Daily Note-Current Subjective States that he is doing okay. Mental Status Attachments: Oxygen Transfers SCALE: Activities may be completed with or without assistive devices. 3-[id number] completes the activity by him/herself with no assistance from a helper. 5-Set-up or Clean-up Assistance-helper sets up or cleans up; patient completes activity. Blair assists only prior to or following the activity. 4-Supervision or Touching Assistance-helper provides verbal cues and/or touching/steadying and/or contact guard assistance as patient completes activity. Assistance may be provided throughout the activity or intermittently. 3-Partial/Moderate Assistance-helper does LESS THAN HALF the effort. Blair lifts, holds or supports trunk or limbs, but provides less than half the effort. 2-Substantial/Maximal Assistance-helper does MORE THAN HALF the effort. [place] lifts or holds trunk or limbs and provides more than half the effort. 7-[id number]-mjnsxl does ALL the effort. Patient does none of the effort to complete the activity. Or, the assistance of 2 or more helpers is required for the patient to complete the activity. If activity was not attempted, code reason: 7-Patient Refused. 9-Not Applicable-not attempted and the patient did not perform the activity before the current illness, exacerbation or injury. 10-Not Attempted due to Environmental Limitations-(lack of equipment, weather restraints, etc.). 88-Not Attempted due to Medical Conditions or Safety Concerns. Roll Left & Right (QC): 5 Sit to Lying (QC): 5 Sit to Stand (QC): 5 Weight Bearing Full Weight Bearing Full Weight Bearing Gait Training Does the Patient Walk?: Yes Distance: 30' Gait Persons Needed: 1 Gait Assistive Device: FWW Patient only ambulated 30' secondary to oxygen continually dropping into the 70's and 80's. Exercises Supine Ex: LE Protocol Supine Reps: 20 Assessment Current Status: Good Progress Difficulty maintaining spO2 over 90 today. 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 Mixer Crane Operator Goals Time Frame: Jun 14, 2021 Roll Left & Right (QC): 6 Sit to Lying (QC): 6 Lying-Sitting on Side/Bed(QC): 6 Sit to Stand (QC): 6 Chair/[id number]-yy-[id number] Xfer(QC): 6 Walk 10 feet (QC): 6 PT Plan Treatment/Plan Treatment Plan: Continue Plan of Care Treatment Plan: Bed Mobility, Education, Functional Activity Tonya, Functional Strength, Gait, Safety, Therapeutic Exercise, Transfers Treatment Duration: Jun 14, 2021 Frequency: 6 times per week Estimated Hrs Per Day: .25 hour per day Patient and/or Family Agrees t: Yes Time/GCodes Time In: 0850 Time Out: 0900 Total Billed Treatment Time: 10 Total Billed Treatment 1, EX x 10' ALBERTO YOUNG PT Jun 11, 2021 09:08
--- NOTE | 2021-06-11 09:34 | Diagnostic Imaging Report ---
INDICATION: Heart failure. TECHNIQUE: Two view chest 9:14 AM CORRELATION STUDY: 06/09/2021 FINDINGS: Heart size remains enlarged. Mediastinal prominence tortuous course thoracic aorta. There is a presence of pulmonary vascular congestion and edema. Overall stable to slightly improved. Prominent, predominantly interstitial opacities within both lung vela. Slight accentuated thoracic kyphosis is noted at the lower thoracic spine. IMPRESSION: 1. Cardiac enlargement with mild vascular congestion suggested. Lung parenchyma appears unchanged may reflect mild edema. Dictated by: Dictated on workstation # [id number]
[2021-06-11] MEDS: APIXABAN 5 MG (ELIQUIS) TABLET PO SCH ×2 (09:36→19:31)
--- NOTE | 2021-06-11 09:37 | Progress Note ---
Subjective Date Seen by a Provider: Jun 11, 2021 Time Seen by a Provider: 12:30 Subjective/Events-last exam Patient feels much better IV diuresis continues On 8 L at home and now currently at baseline Bowel regimen intensified Checked meds and labs Review of Systems General: Fatigue, Malaise Pulmonary: Dyspnea Cardiovascular: Edema Objective Exam Last Set of Vital Signs Vital Signs Date Time Temp Pulse Resp B/P (MAP) Pulse Ox O2 Delivery O2 Flow Rate FiO2 06/11/21 08:04 High Flow N/C 10.00 06/11/21 07:00 83 06/10/21 20:14 36.3 22 149/79 (102) 95 Capillary Refill : Less Than 3 Seconds I&O Intake and Output 06/11/21 00:00 Intake Total 2157 ml Output Total 3120 ml Balance -963 ml Intake Oral 2157 ml Output Urine Total 3120 ml General: Alert, Oriented X3, Cooperative, No Acute Distress Lungs: Clear to Auscultation, Normal Air Movement, Other (Crackles in bases) Heart: Regular Rate, Normal S1, Normal S2, No Murmurs Neuro: Normal Gait, Normal Speech, Strength at 5/5 X4 Ext, Normal Tone Psych/Mental Status: Mental Status NL, Mood NL Results Lab Laboratory Tests 06/10/21 11:23: Glucometer 178H 06/10/21 16:43: Glucometer 168H 06/10/21 20:19: Glucometer 181H 06/11/21 05:15: Sodium Level 141, Potassium Level 3.8, Chloride Level 96L, Carbon Dioxide Level 32, Anion Gap 13, Blood Urea Nitrogen 20H, Creatinine 0.96, Estimat Glomerular Filtration Rate 75, BUN/Creatinine Ratio 21, Glucose Level 126H, Calcium Level 9.1 Assessment/Plan Assessment/Plan Assess & Plan/Chief Complaint Assessment: Acute on chronic congestive heart failure Chronic hypoxemia on 8 L at home Diabetes mellitus Atrial fibrillation Oral anticoagulation Edema Anasarca Current constipation Plan: IV diuresis Home meds Oxygen Bowel regimen Diagnosis/Problems Diagnosis/Problems (1) Acute on chronic heart failure with preserved ejection fraction (HFpEF) Status: Acute (2) Permanent atrial fibrillation Status: Chronic (3) Primary hypertension Clinical Quality Measures Admission Status Admission Dx Assessment: Acute on chronic respiratory failure Acute exacerbation of congestive heart failure Acute exacerbation of COPD Atrial fibrillation Diabetes Chronic Kidney Disease Presumed BHARATH Plan: IV Lasix Cardiology ECHO Home meds Supportive care PT and OT ESTEFANIA GONZALEZ DO Jun 11, 2021 09:37
[2021-06-11] MEDS: UMECLIDINIUM BROMIDE (INCRUSE ELLIPTA) 7'S IH SCH (10:16)
[2021-06-11] MEDS: RT--FLUTICASONE/SALMETEROL 232-14 (AIRDUO RespiCLICK) IH SCH ×2 (10:16→20:14)
[2021-06-11 11:26] VITALS: BP 149/79
[2021-06-11 12:25] VITALS: BP 158/86
[2021-06-11 12:27] VITALS: BP 158/86
[2021-06-11] MEDS: SENNA W/DOCUSATE (SENOKOT S) TABLET PO SCH ×2 (12:34→19:31)
[2021-06-11] MEDS: polyethylene glycoL POWDER 17 GM (MIRALAX) PACK PO SCH ×2 (12:34→19:37)
[2021-06-11] MEDS: DOCUSATE SODIUM 100 MG (COLACE) CAP PO SCH ×2 (12:34→19:31)
[2021-06-11] MEDS: LACTULOSE SYRUP 10GM/15ML (ENULOSE) 30ML UDC PO SCH ×2 (12:34→19:37)
--- NOTE | 2021-06-11 12:38 | Cardiology Progress Note ---
Subjective Date Seen by Provider: Jun 11, 2021 Time Seen by Provider: 12:35 Subjective/Events-last exam Patient was seen at bedside, laying down comfortably. No new complaint Objective-Cardiology Exam Last Set of Vital Signs Vital Signs 06/11/21 12:27 Temp 36.4 Pulse 97 Resp 22 B/P (MAP) 158/86 (110) Pulse Ox 91 O2 Delivery High Flow N/C O2 Flow Rate 10.00 I&O Intake and Output 06/11/21 00:00 Intake Total 2157 ml Output Total 3120 ml Balance -963 ml Intake Oral 2157 ml Output Urine Total 3120 ml General: Alert, Oriented X3, Cooperative, No Acute Distress HEENT: Atraumatic, PERRLA, EOMI, Mucous Memb Moist/[place] Neck: Supple Lungs: Clear to Auscultation, Normal Air Movement Heart: Regular Rate, Normal S1, Normal S2, No Murmurs Abdomen: Soft, No Tenderness Extremities: Other (mild LE edema) Skin: No Rashes Neuro: Normal Speech Psych/Mental Status: Mental Status NL, Mood NL Results Lab Laboratory Tests 06/11/21 05:15 A/P-Cardiology Admission Diagnosis Congestive heart failure Pulmonary edema Hypertension Chronic atrial fibrillation Assessment/Plan Permanent atrial fibrillation, rate controlled. Managed by Dr. Odom. Continue to monitor Congestive heart failure, acute on chronic left ventricular diastolic dysfunction, normal systolic function. Responding well to diuretics. Continue to monitor Hypertension, better controlled. Monitor blood pressure History of pulmonary hypertension. Moderate mitral regurgitation reported on 2D echocardiogram. Continue to monitor Chronic kidney disease, monitor renal function FELIX JACKSON MD Jun 11, 2021 12:38
[2021-06-11] MEDS: SALINE NASAL SPRAY (OCEAN) 45 ML BTL SCH ×3 (12:53→19:31)
[2021-06-11 15:36] VITALS: BP 145/76
[2021-06-11] MEDS: FUROSEMIDE 40 MG/4 ML INJ (LASIX) IVP SCH (16:58)
[2021-06-11 19:20] VITALS: BP 135/85
[2021-06-11] MEDS: MONTELUKAST 10 MG (SINGULAIR) TAB PO SCH (19:31)
[2021-06-12 00:42] VITALS: BP 116/56
[2021-06-12] MEDS: RT-ALBUTEROL/IPRATROPIUM 3 ML (DUONEB) VIAL INH SCH ×4 (02:48→21:27)
[2021-06-12 04:12] VITALS: BP 100/53
[2021-06-12] MEDS: FUROSEMIDE 40 MG/4 ML INJ (LASIX) IVP SCH ×2 (05:44→16:41)
[2021-06-12] MEDS: CATHETER FLUSH 10 ML SYR IV SCH ×2 (05:44→13:02)
[2021-06-12] MEDS: inSUlin ASPART (NovoLOG) 1 UNIT/0.01 ML (CHARGE PER UNIT) SC SCH ×5 (05:55→20:28)
[2021-06-12 07:35] LABS: BASOPHILS % (AUTO) 1 % (0-10); EOSINOPHILS # (AUTO) 0.2 10^3/uL (0.0-0.3); EOSINOPHILS % (AUTO) 2 % (0-10); HEMATOCRIT 42 % (40-54); HEMOGLOBIN 13.2 g/dL (13.3-17.7); LYMPHOCYTES # (AUTO) 1.1 10^3/uL (1.0-4.0); LYMPHOCYTES % (AUTO) 13 % (12-44); MEAN CORPUSCULAR HEMOGLOBIN 28 pg (25-34); MEAN CORPUSCULAR HGB CONC 31 g/dL (32-36); MEAN CORPUSCULAR VOLUME 89 fL (80-99); MEAN PLATELET VOLUME 9.7 fL (9.0-12.2); MONOCYTES # (AUTO) 1.1 10^3/uL (0.0-1.0); MONOCYTES % (AUTO) 13 % (0-12); NEUTROPHILS % (AUTO) 71 % (42-75); PLATELET COUNT 310 10^3/uL (130-400); WHITE BLOOD COUNT 8.5 10^3/uL (4.3-11.0)
[2021-06-12 07:49] VITALS: BP 148/84
[2021-06-12 07:59] LABS: BILIRUBIN,TOTAL 1.3 MG/DL (0.1-1.0); CALCIUM 9.5 MG/DL (8.5-10.1); CREATININE SERUM 1.1 MG/DL (0.60-1.30); POTASSIUM 3.7 MMOL/L (3.6-5.0); TOTAL PROTEIN 7.2 GM/DL (6.4-8.2)
[2021-06-12] MEDS: polyethylene glycoL POWDER 17 GM (MIRALAX) PACK PO SCH ×2 (08:13→20:26)
[2021-06-12] MEDS: APIXABAN 5 MG (ELIQUIS) TABLET PO SCH ×2 (08:14→20:27)
[2021-06-12] MEDS: DOCUSATE SODIUM 100 MG (COLACE) CAP PO SCH ×2 (08:14→20:27)
[2021-06-12] MEDS: SALINE NASAL SPRAY (OCEAN) 45 ML BTL SCH ×4 (08:14→21:18)
[2021-06-12] MEDS: SENNA W/DOCUSATE (SENOKOT S) TABLET PO SCH ×2 (08:14→20:27)
[2021-06-12] MEDS: LACTULOSE SYRUP 10GM/15ML (ENULOSE) 30ML UDC PO SCH ×2 (08:15→21:18)
--- NOTE | 2021-06-12 08:21 | Progress Note ---
Subjective Date Seen by a Provider: Jun 12, 2021 Time Seen by a Provider: 12:30 Subjective/Events-last exam Patient doing really well IV diuresis is working well Checked meds and labs Bowels not moving as much as he wanted to so we will do soapsuds enema No pain is reported Daughter at bedside Review of Systems General: Fatigue, Malaise Pulmonary: Dyspnea, Cough Objective Exam Last Set of Vital Signs Vital Signs Date Time Temp Pulse Resp B/P (MAP) Pulse Ox O2 Delivery O2 Flow Rate FiO2 06/12/21 07:49 35.6 93 24 148/84 (105) 96 High Flow N/C 10.00 Capillary Refill : Less Than 3 Seconds I&O Intake and Output 06/12/21 00:00 Intake Total 2740 ml Output Total 2850 ml Balance -110 ml Intake Oral 2740 ml Output Urine Total 2850 ml # Bowel Movements 1 Lungs: Clear to Auscultation, Normal Air Movement Psych/Mental Status: Mental Status NL, Mood NL Results Lab Laboratory Tests 06/11/21 10:04: Glucometer 155H 06/11/21 15:40: Glucometer 188H 06/11/21 20:09: Glucometer 240H 06/12/21 05:54: Glucometer 141H 06/12/21 07:07: White Blood Count 8.5, Red Blood Count 4.72, Hemoglobin 13.2L, Hematocrit 42, Mean Corpuscular Volume 89, Mean Corpuscular Hemoglobin 28, Mean Corpuscular Hemoglobin Concent 31L, Red Cell Distribution Width 17.2H, Platelet Count 310, Mean Platelet Volume 9.7, Immature Granulocyte % (Auto) 0, Neutrophils (%) (Auto) 71, Lymphocytes (%) (Auto) 13, Monocytes (%) (Auto) 13H, Eosinophils (%) (Auto) 2, Basophils (%) (Auto) 1, Neutrophils # (Auto) 6.0, Lymphocytes # (Auto) 1.1, Monocytes # (Auto) 1.1H, Eosinophils # (Auto) 0.2, Basophils # (Auto) 0.0, Immature Granulocyte # (Auto) 0.0, Sodium Level 139, Potassium Level 3.7, Chloride Level 95L, Carbon Dioxide Level 28, Anion Gap 16H, Blood Urea Nitrogen 20H, Creatinine 1.10, Estimat Glomerular Filtration Rate 64, BUN/Creatinine Ratio 18, Glucose Level 131H, Calcium Level 9.5, Corrected Calcium 9.5, Total Bilirubin 1.3H, Aspartate Amino Transf (AST/SGOT) 27, Alanine Aminotransferase (ALT/SGPT) 32, Alkaline Phosphatase 61, Total Protein 7.2, Albumin 4.0 Assessment/Plan Assessment/Plan Assess & Plan/Chief Complaint Assessment: Acute on chronic congestive heart failure Chronic hypoxemia on 8 L at home Diabetes mellitus Atrial fibrillation Oral anticoagulation Edema Anasarca Current constipation Plan: IV diuresis Home meds Oxygen Bowel regimen 06/12/2021: Soapsuds enema : IV diuresis Diagnosis/Problems Diagnosis/Problems (1) Acute on chronic heart failure with preserved ejection fraction (HFpEF) Status: Acute (2) Permanent atrial fibrillation Status: Chronic (3) Primary hypertension Clinical Quality Measures Admission Status Admission Dx Assessment: Acute on chronic respiratory failure Acute exacerbation of congestive heart failure Acute exacerbation of COPD Atrial fibrillation Diabetes Chronic Kidney Disease Presumed BHARATH Plan: IV Lasix Cardiology ECHO Home meds Supportive care PT and OT ESTEFANIA GONAZLEZ DO Jun 12, 2021 08:21
[2021-06-12] MEDS: UMECLIDINIUM BROMIDE (INCRUSE ELLIPTA) 7'S IH SCH (08:47)
[2021-06-12] MEDS: RT--FLUTICASONE/SALMETEROL 232-14 (AIRDUO RespiCLICK) IH SCH ×2 (08:47→21:27)
--- NOTE | 2021-06-12 10:42 | Cardiology Progress Note ---
Subjective Date Seen by Provider: Jun 12, 2021 Time Seen by Provider: 10:42 Subjective/Events-last exam Patient is laying down in bed, feeling better today. Denied any chest pain, reporting improvement in his breathing Review of Systems General: No Chills, No Night Sweats; Fatigue; No Malaise, No Appetite, No Other HEENT: No Head Aches, No Visual Changes, No Eye Pain, No Ear Pain, No Dysphasia, No Sinus Congestion, No Post Nasal Drip, No Sore Throat, No Other Pulmonary: Dyspnea; No Cough, No Pleuritic Chest Pain, No Other Cardiovascular: No: Chest Pain, Palpitations, Orthopnea, Paroxysmal Noc. Dyspnea, Edema, Lt Headedness, Other Objective-Cardiology Exam Last Set of Vital Signs Vital Signs 06/12/21 06/12/21 07:49 08:47 Temp 35.6 Pulse 93 Resp 24 B/P (MAP) 148/84 (105) Pulse Ox 90 O2 Delivery High Flow N/C O2 Flow Rate 10.00 I&O Intake and Output 06/12/21 00:00 Intake Total 2740 ml Output Total 2850 ml Balance -110 ml Intake Oral 2740 ml Output Urine Total 2850 ml # Bowel Movements 1 General: Alert, Oriented X3, Cooperative, No Acute Distress HEENT: Atraumatic, PERRLA, EOMI, Mucous Memb Moist/[place] Neck: Supple Lungs: Clear to Auscultation, Normal Air Movement, Other (Crackles in bases) Heart: Regular Rate, Normal S1, Normal S2, No Murmurs Abdomen: Soft, No Tenderness Extremities: Other (mild LE edema) Skin: No Rashes Neuro: Normal Gait, Normal Speech, Strength at 5/5 X4 Ext, Normal Tone Psych/Mental Status: Mental Status NL, Mood NL Results Lab Laboratory Tests 06/12/21 07:07 A/P-Cardiology Admission Diagnosis Congestive heart failure Pulmonary edema Hypertension Chronic atrial fibrillation Assessment/Plan Permanent atrial fibrillation, rate controlled. Managed by Dr. Odom. Continue to monitor Congestive heart failure, acute on chronic left ventricular diastolic dysfunction, normal systolic function. Responding well to diuretics. Continue to monitor Hypertension, better controlled. Monitor blood pressure History of pulmonary hypertension. Moderate mitral regurgitation reported on 2D echocardiogram. Continue to monitor Chronic kidney disease, monitor renal function FELIX JACKSON MD Jun 12, 2021 10:42
[2021-06-12 11:02] VITALS: BP 131/83
[2021-06-12] MEDS ORDERED: FLEET ENEMA ADULT 1 EA BTL PR PRN (15:45)
[2021-06-12 16:00] VITALS: BP 132/70
[2021-06-12 20:00] VITALS: BP 151/81
[2021-06-12] MEDS: MONTELUKAST 10 MG (SINGULAIR) TAB PO SCH (20:27)
[2021-06-12] MEDS: SOD CHL GEL 0.5 OZ (AYR SALINE NASAL GEL) TUBE NS PRN (20:27)
[2021-06-13] VITALS: BP 122/72
[2021-06-13] MEDS: RT-ALBUTEROL/IPRATROPIUM 3 ML (DUONEB) VIAL INH SCH ×2 (02:57→10:22)
[2021-06-13 05:59] LABS: BASOPHILS # (AUTO) 0.1 10^3/uL (0.0-0.1); BASOPHILS % (AUTO) 1 % (0-10); EOSINOPHILS # (AUTO) 0.2 10^3/uL (0.0-0.3); EOSINOPHILS % (AUTO) 2 % (0-10); HEMATOCRIT 40 % (40-54); HEMOGLOBIN 12.9 g/dL (13.3-17.7); LYMPHOCYTES % (AUTO) 11 % (12-44); MEAN CORPUSCULAR HEMOGLOBIN 29 pg (25-34); MEAN CORPUSCULAR HGB CONC 32 g/dL (32-36); MEAN CORPUSCULAR VOLUME 89 fL (80-99); MEAN PLATELET VOLUME 9.8 fL (9.0-12.2); MONOCYTES # (AUTO) 1.3 10^3/uL (0.0-1.0); MONOCYTES % (AUTO) 15 % (0-12); NEUTROPHILS # (AUTO) 6.2 10^3/uL (1.8-7.8); NEUTROPHILS % (AUTO) 72 % (42-75); PLATELET COUNT 314 10^3/uL (130-400); WHITE BLOOD COUNT 8.7 10^3/uL (4.3-11.0)
[2021-06-13 06:10] LABS: ALBUMIN 3.6 GM/DL (3.2-4.5); POTASSIUM 4.2 MMOL/L (3.6-5.0)
[2021-06-13 06:11] LABS: CALCIUM 9.1 MG/DL (8.5-10.1)
[2021-06-13 06:12] LABS: TOTAL PROTEIN 6.7 GM/DL (6.4-8.2)
[2021-06-13 06:16] LABS: CREATININE SERUM 0.96 MG/DL (0.60-1.30)
[2021-06-13] MEDS: inSUlin ASPART (NovoLOG) 1 UNIT/0.01 ML (CHARGE PER UNIT) SC SCH ×2 (06:28→12:08)
[2021-06-13] MEDS: CATHETER FLUSH 10 ML SYR IV SCH (06:30)
[2021-06-13] MEDS: FUROSEMIDE 40 MG/4 ML INJ (LASIX) IVP SCH (06:30)
[2021-06-13 08:00] VITALS: BP 135/79
[2021-06-13] MEDS: SENNA W/DOCUSATE (SENOKOT S) TABLET PO SCH (09:42)
[2021-06-13] MEDS: SALINE NASAL SPRAY (OCEAN) 45 ML BTL SCH ×2 (09:43→13:04)
[2021-06-13] MEDS: DOCUSATE SODIUM 100 MG (COLACE) CAP PO SCH (09:43)
[2021-06-13] MEDS: polyethylene glycoL POWDER 17 GM (MIRALAX) PACK PO SCH (09:43)
[2021-06-13] MEDS: APIXABAN 5 MG (ELIQUIS) TABLET PO SCH (09:43)
[2021-06-13] MEDS: LACTULOSE SYRUP 10GM/15ML (ENULOSE) 30ML UDC PO SCH (09:43)
[2021-06-13] MEDS: RT--FLUTICASONE/SALMETEROL 232-14 (AIRDUO RespiCLICK) IH SCH (10:23)
[2021-06-13] MEDS: UMECLIDINIUM BROMIDE (INCRUSE ELLIPTA) 7'S IH SCH (10:23)
[2021-06-13] MEDS ORDERED: DILT240C91 PO (10:58)
[2021-06-13] MEDS ORDERED: FURO-124 PO (10:58)
[2021-06-13] MEDS ORDERED: POTA10CA43 PO (10:58)
--- NOTE | 2021-06-13 10:59 | Discharge Summary ---
Diagnosis/Chief Complaint Date of Admission Jun 07, 2021 at 03:40 Date of Discharge Discharge Date: Jun 13, 2021 Discharge Diagnosis Assessment: Acute on chronic respiratory failure Acute exacerbation of congestive heart failure Acute exacerbation of COPD Atrial fibrillation Diabetes Chronic Kidney Disease Presumed BHARATH Reason Hospital Visit CC: SOB HPI: 85 yr old WM. Hx of COPD, oxygen dependent at home of 8 L and CHF Pt presented from [facility] with complaints of SOB and edema. Pt was given IV Lasix and cardiology was consulted. Pt is on inhalers for COPD and has had a 3 week history of dyspnea. Pt lives with his daughter and she takes care of his medications. Pt refuses ABG. I ordered an echocardiogram and I spoke with Dr. Odom. Pt does feel less SOB and less edema. Discharge Summary Discharge Physical Examination Allergies: Coded Allergies: No Known Allergies (Unverified Allergy, Unknown, 07/30/18) Vitals & I&Os Vital Signs Date Time Temp Pulse Resp B/P (MAP) Pulse Ox O2 Delivery O2 Flow Rate FiO2 06/13/21 10:25 95 High Flow N/C 10.00 06/13/21 08:00 36.4 95 20 135/79 (97) General Appearance: Alert, Oriented X3, Cooperative Respiratory: Clear to Auscultation Cardiovascular: Regular Rate Hospital Course Was the Problem List Reviewed?: Yes Brief Hospital Course: Patient was admitted on 06/07/2021 for CHF exacerbation and discharged at relative baseline on 06/13/2021. At presentation to the ED (06/07/2021), patient received a CBC, CMP, Pro-BNP, Coagulation studies, COVID-19 Swab, and Chest x-ray. Pertinent labs revealed a Pro-BNP of 2967, creatinine of 1.28, BUN of 26 and GFR of 55. Chest X-ray on presentation showed Pulmonary edema. Patient was admitted to Internal Medicine (Dr. Gonzalez) and Consulted Cardiology (Dr. Odom), Physical Therapy, and Occupational therapy. Cardiology work-up included an echocardiogram revealing: Severe Concentric hypertrophy of the left ventricle, normal systolic function, Hypokinesis of the basal-mid inf eroseptal and apical septal myocardium. left atrium is severely dilated with a volume index of 63 mL/m, right atrium is severely dilated with an area of 41 cm, moderate mitral regurgitation, moderate-severe tricuspid regurgitation, pulmonary artery systolic pressure is 89 mmHg. Patient received furosemide twice daily due to admission diagnosis and was placed on diltiazem due to the Afib with RVR of 113 BPM. Other home medications were resumed throughout the hospital course. Other interventions for the LE edema included MAGUI wraps, and soap suds enema for bowel movement. The day the patient was discharged, patient was placed on 40 mg of furosemide, 240 mg of diltiazem, and resumed home medications. Patient was also on baseline Oxygen requirement (8-10L). This summary does not include the entirety of the patient's visit and is only a short description of pertinent lab values and information. For the complete hospital course, please refer to the patient's chart. Date of Admission: 06/07/2021 Date of Discharge: 06/13/2021 Attending Physician: Dr. Geri Gonzalez PCP: Dr. Sherri Zambrano Admission Diagnosis: CHF Exacerbation, Hypoxia, Dyspnea on Exertion Discharge Diagnosis: CHF, Pulmonary hypertension, Mitral regurgitation, tricuspid regurgitation. Secondary Diagnoses: COPD O2 dependent, Insulin dependent Type 2 Diabetes, Atrial Fibrillation Consultations: Cardiology, PT, OT Procedures: Echocardiogram HPI: 85 yo male with a PMH of COPD O2 dependent, Insulin dependent Type 2 Diabetes, Atrial Fibrillation that presented to hospital for LE edema. Patient reported that the swelling does go down during the night when he is sleeping, bu t gets worse throughout the day. During this time he has also been experiencing increasing fatigue, increasing work of respiration, and dyspnea on exertion (less than 10 feet of walking). [place] oxygen requirement is 8-10 L of O2 and is currently on 15L. Chest x-ray revealed pulmonary edema. Pro-BNP was 2967 with negative troponins. Patient has never been hospitalized before for this issue and denied fevers, chills, abdominal pain, nausea, and vomiting. DAVONTE PERAZA [facility] (last 24 hrs) Laboratory Tests 06/07/21 00:09: White Blood Count 10.5, Red Blood Count 4.57, Hemoglobin 12.9L, Hematocrit 42, Mean Corpuscular Volume 92, Mean Corpuscular Hemoglobin 28, Mean Corpuscular Hemoglobin Concent 31L, Red Cell Distribution Width 18.7H, Platelet Count 322, Mean Platelet Volume 9.7, Immature Granulocyte % (Auto) 1, Neutrophils (%) (Auto) 78H, Lymphocytes (%) (Auto) 10L, Monocytes (%) (Auto) 10, Eosinophils (%) (Auto) 2, Basophils (%) (Auto) 1, Neutrophils # (Auto) 8.2H, Lymphocytes # (Auto) 1.0, Monocytes # (Auto) 1.0, Eosinophils # (Auto) 0.2, Basophils # (Auto) 0.1, Immature Granulocyte # (Auto) 0.1, Prothrombin Time 16.3H, INR Comment 1.3, Activated Partial Thromboplast Time 33, Sodium Level 141, Potassium Level 4.4, Chloride Level 102, Carbon Dioxide Level 27, Anion Gap 12, Blood Urea Nitrogen 26H, Creatinine 1.28, Estimat Glomerular Filtration Rate 54, BUN/Creatinine Ratio 20, Glucose Level 177H, Calcium Level 9.3, Corrected Calcium 9.2, Magnesium Level 1.9, Total Bilirubin 0.7, Aspartate Amino Transf (AST/SGOT) 16, Alanine Aminotransferase (ALT/SGPT) 16, Alkaline Phosphatase 72, Troponin I < 0.30, C-Reactive Protein 1.81H, Pro-B-Type Natriuretic Peptide 2967.0H, Total Protein 7.2, Albumin 4.1, Coronavirus (COVID-19)(PCR) Negative, Influenza Type A Antigen NEGATIVE, Influenza Type B Antigen NEGATIVE 06/07/21 01:04: SARS-CoV-2 RNA (RT-PCR) Negative 06/07/21 01:05: Urine Color YELLOW, Urine Clarity CLEAR, Urine pH 6.0, Urine Specific [place] 1.020, Urine Protein 1+H, Urine Glucose (UA) NEGATIVE, Urine Ketones NEGATIVE, Urine Nitrite NEGATIVE, Urine Bilirubin NEGATIVE, Urine Urobilinogen 0.2, Urine Leukocyte Esterase NEGATIVE, Urine RBC (Auto) NEGATIVE, Urine RBC RARE, Urine WBC RARE, Urine Squamous Epithelial Cells RARE, Urine Crystals NONE, Urine Bacteria NEGATIVE, Urine Casts PRESENT, Urine Hyaline Casts 0-2H, Urine Mucus MODERATEH, Urine Culture Indicated NO 06/07/21 05:13: Glucometer 115H 06/07/21 05:30: White Blood Count 10.4, Red Blood Count 4.48, Hemoglobin 12.9L, Hematocrit 41, Mean Corpuscular Volume 92, Mean Corpuscular Hemoglobin 29, Mean Corpuscular Hemoglobin Concent 31L, Red Cell Distribution Width 18.3H, Platelet Count 305, Mean Platelet Volume 10.1, Immature Granulocyte % (Auto) 1, Neutrophils (%) (Auto) 71, Lymphocytes (%) (Auto) 14, Monocytes (%) (Auto) 12, Eosinophils (%) (Auto) 2, Basophils (%) (Auto) 1, Neutrophils # (Auto) 7.4, Lymphocytes # (Auto) 1.4, Monocytes # (Auto) 1.3H, Eosinophils # (Auto) 0.2, Basophils # (Auto) 0.1, Immature Granulocyte # (Auto) 0.1, Sodium Level 141, Potassium Level 4.3, Chloride Level 100, Carbon Dioxide Level 28, Anion Gap 13, Blood Urea Nitrogen 25H, Creatinine 1.24, Estimat Glomerular Filtration Rate 56, BUN/Creatinine Ratio 20, Glucose Level 113H, Mean Blood Glucose 163H, Hemoglobin A1c 7.3H, Calcium Level 9.3 06/07/21 11:07: Glucometer 124H 06/07/21 15:46: Glucometer 138H 06/07/21 20:21: Glucometer 136H 06/08/21 05:10: White Blood Count 8.3, Red Blood Count 4.25L, Hemoglobin 12.2L, Hematocrit 38L, Mean Corpuscular Volume 90, Mean Corpuscular Hemoglobin 29, Mean Corpuscular Hemoglobin Concent 32, Red Cell Distribution Width 17.9H, Platelet Count 304, Mean Platelet Volume 10.3, Immature Granulocyte % (Auto) 0, Neutrophils (%) (Auto) 74, Lymphocytes (%) (Auto) 11L, Monocytes (%) (Auto) 13H, Eosinophils (%) (Auto) 2, Basophils (%) (Auto) 1, Neutrophils # (Auto) 6.1, Lymphocytes # (Auto) 0.9L, Monocytes # (Auto) 1.1H, Eosinophils # (Auto) 0.1, Basophils # (Auto) 0.0, Immature Granulocyte # (Auto) 0.0, Sodium Level 139, Potassium Level 4.5, Chloride Level 99, Carbon Dioxide Level 28, Anion Gap 12, Blood Urea Nitrogen 18, Creatinine 1.07, Estimat Glomerular Filtration Rate 66, BUN/Creatinine Ratio 17, Glucose Level 142H, Calcium Level 8.8, Corrected Calcium 9.3, Total Bilirubin 1.1H, Aspartate Amino Transf (AST/SGOT) 26, Alanine Aminotransferase (ALT/SGPT) 15, Alkaline Phosphatase 47, Total Protein 6.7, Albumin 3.4, Triglycerides Level 80, Cholesterol Level 108, LDL Cholesterol Direct 69, VLDL Cholesterol 16, HDL Cholesterol 33L 06/08/21 05:13: Glucometer 132H 06/08/21 10:39: Glucometer 189H 06/08/21 15:57: Glucometer 142H 06/08/21 20:50: Glucometer 187H 06/09/21 05:55: White Blood Count 8.9, Red Blood Count 4.38, Hemoglobin 12.7L, Hematocrit 39L, Mean Corpuscular Volume 90, Mean Corpuscular Hemoglobin 29, Mean Corpuscular Hemoglobin Concent 32, Red Cell Distribution Width 17.5H, Platelet Count 302, Mean Platelet Volume 9.7, Immature Granulocyte % (Auto) 0, Neutrophils (%) (Auto) 72, Lymphocytes (%) (Auto) 12, Monocytes (%) (Auto) 14H, Eosinophils (%) (Auto) 2, Basophils (%) (Auto) 1, Neutrophils # (Auto) 6.4, Lymphocytes # (Auto) 1.1, Monocytes # (Auto) 1.2H, Eosinophils # (Auto) 0.1, Basophils # (Auto) 0.1, Immature Granulocyte # (Auto) 0.0, Sodium Level 140, Potassium Level 3.7, Chloride Level 96L, Carbon Dioxide Level 31, Anion Gap 13, Blood Urea Nitrogen 18, Creatinine 1.04, Estimat Glomerular Filtration Rate 68, BUN/Creatinine Ratio 17, Glucose Level 128H, Calcium Level 9.1, Corrected Calcium 9.3, Total Bilirubin 0.9, Aspartate Amino Transf (AST/SGOT) 18, Alanine Aminotransferase (ALT/SGPT) 15, Alkaline Phosphatase 53, Total Protein 6.8, Albumin 3.8 06/09/21 06:08: Glucometer 132H 06/09/21 11:10: Glucometer 181H 06/09/21 16:28: Glucometer 127H 06/09/21 20:24: Glucometer 212H 06/10/21 05:34: Glucometer 149H 06/10/21 06:18: White Blood Count 8.9, Red Blood Count 4.30, Hemoglobin 12.3L, Hematocrit 39L, Mean Corpuscular Volume 90, Mean Corpuscular Hemoglobin 29, Mean Corpuscular Hemoglobin Concent 32, Red Cell Distribution Width 17.2H, Platelet Count 279, Mean Platelet Volume 9.8, Immature Granulocyte % (Auto) 1, Neutrophils (%) (Auto) 72, Lymphocytes (%) (Auto) 11L, Monocytes (%) (Auto) 14H, Eosinophils (%) (Auto) 2, Basophils (%) (Auto) 1, Neutrophils # (Auto) 6.4, Lymphocytes # (Auto) 1.0, Monocytes # (Auto) 1.3H, Eosinophils # (Auto) 0.2, Basophils # (Auto) 0.1, Immature Granulocyte # (Auto) 0.0, Sodium Level 140, Potassium Level 3.9, Chloride Level 96L, Carbon Dioxide Level 32, Anion Gap 12, Blood Urea Nitrogen 20H, Creatinine 1.07, Estimat Glomerular Filtration Rate 66, BUN/Creatinine Ratio 19, Glucose Level 147H, Calcium Level 9.0, Corrected Calcium 9.3, Total Bilirubin 0.9, Aspartate Amino Transf (AST/SGOT) 20, Alanine Aminotransferase (ALT/SGPT) 19, Alkaline Phosphatase 50, Total Protein 6.5, Albumin 3.6 06/10/21 11:23: Glucometer 178H 06/10/21 16:43: Glucometer 168H 06/10/21 20:19: Glucometer 181H 06/11/21 05:15: Sodium Level 141, Potassium Level 3.8, Chloride Level 96L, Carbon Dioxide Level 32, Anion Gap 13, Blood Urea Nitrogen 20H, Creatinine 0.96, Estimat Glomerular Filtration Rate 75, BUN/Creatinine Ratio 21, Glucose Level 126H, Calcium Level 9.1 06/11/21 10:04: Glucometer 155H 06/11/21 15:40: Glucometer 188H 06/11/21 20:09: Glucometer 240H 06/12/21 05:54: Glucometer 141H 06/12/21 07:07: White Blood Count 8.5, Red Blood Count 4.72, Hemoglobin 13.2L, Hematocrit 42, Mean Corpuscular Volume 89, Mean Corpuscular Hemoglobin 28, Mean Corpuscular Hemoglobin Concent 31L, Red Cell Distribution Width 17.2H, Platelet Count 310, Mean Platelet Volume 9.7, Immature Granulocyte % (Auto) 0, Neutrophils (%) (Auto) 71, Lymphocytes (%) (Auto) 13, Monocytes (%) (Auto) 13H, Eosinophils (%) (Auto) 2, Basophils (%) (Auto) 1, Neutrophils # (Auto) 6.0, Lymphocytes # (Auto) 1.1, Monocytes # (Auto) 1.1H, Eosinophils # (Auto) 0.2, Basophils # (Auto) 0.0, Immature Granulocyte # (Auto) 0.0, Sodium Level 139, Potassium Level 3.7, Chloride Level 95L, Carbon Dioxide Level 28, Anion Gap 16H, Blood Urea Nitrogen 20H, Creatinine 1.10, Estimat Glomerular Filtration Rate 64, BUN/Creatinine Ratio 18, Glucose Level 131H, Calcium Level 9.5, Corrected Calcium 9.5, Total Bilirubin 1.3H, Aspartate Amino Transf (AST/SGOT) 27, Alanine Aminotransferase (ALT/SGPT) 32, Alkaline Phosphatase 61, Total Protein 7.2, Albumin 4.0 06/12/21 11:06: Glucometer 160H 06/12/21 16:32: Glucometer 155H 06/12/21 20:20: Glucometer 233H 06/13/21 05:45: White Blood Count 8.7, Red Blood Count 4.53, Hemoglobin 12.9L, Hematocrit 40, Mean Corpuscular Volume 89, Mean Corpuscular Hemoglobin 29, Mean Corpuscular Hemoglobin Concent 32, Red Cell Distribution Width 17.0H, Platelet Count 314, Mean Platelet Volume 9.8, Immature Granulocyte % (Auto) 1, Neutrophils (%) (Auto) 72, Lymphocytes (%) (Auto) 11L, Monocytes (%) (Auto) 15H, Eosinophils (%) (Auto) 2, Basophils (%) (Auto) 1, Neutrophils # (Auto) 6.2, Lymphocytes # (Auto) 1.0, Monocytes # (Auto) 1.3H, Eosinophils # (Auto) 0.2, Basophils # (Auto) 0.1, Immature Granulocyte # (Auto) 0.0, Sodium Level 138, Potassium Level 4.2, Chloride Level 97L, Carbon Dioxide Level 31, Anion Gap 10, Blood Urea Nitrogen 21H, Creatinine 0.96, Estimat Glomerular Filtration Rate 75, BUN/Creatinine Ratio 22, Glucose Level 151H, Calcium Level 9.1, Corrected Calcium 9.4, Total Bilirubin 1.0, Aspartate Amino Transf (AST/SGOT) 23, Alanine Aminotransferase (ALT/SGPT) 28, Alkaline Phosphatase 57, Total Protein 6.7, Albumin 3.6 Pending Labs Laboratory Tests 06/07/21 00:09: White Blood Count 10.5, Red Blood Count 4.57, Hemoglobin 12.9, Hematocrit 42, Mean Corpuscular Volume 92, Mean Corpuscular Hemoglobin 28, Mean Corpuscular Hemoglobin Concent 31, Red Cell Distribution Width 18.7, Platelet Count 322, Mean Platelet Volume 9.7, Immature Granulocyte % (Auto) 1, Neutrophils (%) (Auto) 78, Lymphocytes (%) (Auto) 10, Monocytes (%) (Auto) 10, Eosinophils (%) (Auto) 2, Basophils (%) (Auto) 1, Neutrophils # (Auto) 8.2, Lymphocytes # (Auto) 1.0, Monocytes # (Auto) 1.0, Eosinophils # (Auto) 0.2, Basophils # (Auto) 0.1, Immature Granulocyte # (Auto) 0.1, Prothrombin Time 16.3, INR Comment 1.3, Activated Partial Thromboplast Time 33, Sodium Level 141, Potassium Level 4.4, Chloride Level 102, Carbon Dioxide Level 27, Anion Gap 12, Blood Urea Nitrogen 26, Creatinine 1.28, Estimat Glomerular Filtration Rate 54, BUN/Creatinine Ratio 20, Glucose Level 177, Calcium Level 9.3, Corrected Calcium 9.2, Magnesium Level 1.9, Total Bilirubin 0.7, Aspartate Amino Transf (AST/SGOT) 16, Alanine Aminotransferase (ALT/SGPT) 16, Alkaline Phosphatase 72, Troponin I < 0.30, C- Reactive Protein 1.81, Pro-B-Type Natriuretic Peptide 2967.0, Total Protein 7.2, Albumin 4.1, Coronavirus (COVID-19)(PCR) Negative, Influenza Type A Antigen NEGATIVE, Influenza Type B Antigen NEGATIVE 06/07/21 01:04: SARS-CoV-2 RNA (RT-PCR) Negative 06/07/21 01:05: Urine Color YELLOW, Urine Clarity CLEAR, Urine pH 6.0, Urine Specific [place] 1.020, Urine Protein 1+, Urine Glucose (UA) NEGATIVE, Urine Ketones NEGATIVE, Urine Nitrite NEGATIVE, Urine Bilirubin NEGATIVE, Urine Urobilinogen 0.2, Urine Leukocyte Esterase NEGATIVE, Urine RBC (Auto) NEGATIVE, Urine RBC RARE, Urine WBC RARE, Urine Squamous Epithelial Cells RARE, Urine Crystals NONE, Urine Bacteria NEGATIVE, Urine Casts PRESENT, Urine Hyaline Casts 0-2, Urine Mucus MODERATE, Urine Culture Indicated NO 06/07/21 05:13: Glucometer 115 06/07/21 05:30: White Blood Count 10.4, Red Blood Count 4.48, Hemoglobin 12.9, Hematocrit 41, Mean Corpuscular Volume 92, Mean Corpuscular Hemoglobin 29, Mean Corpuscular Hemoglobin Concent 31, Red Cell Distribution Width 18.3, Platelet Count 305, Mean Platelet Volume 10.1, Immature Granulocyte % (Auto) 1, Neutrophils (%) (Auto) 71, Lymphocytes (%) (Auto) 14, Monocytes (%) (Auto) 12, Eosinophils (%) (Auto) 2, Basophils (%) (Auto) 1, Neutrophils # (Auto) 7.4, Lymphocytes # (Auto) 1.4, Monocytes # (Auto) 1.3, Eosinophils # (Auto) 0.2, Basophils # (Auto) 0.1, Immature Granulocyte # (Auto) 0.1, Sodium Level 141, Potassium Level 4.3, Chloride Level 100, Carbon Dioxide Level 28, Anion Gap 13, Blood Urea Nitrogen 25, Creatinine 1.24, Estimat Glomerular Filtration Rate 56, BUN/Creatinine Ratio 20, Glucose Level 113, Mean Blood Glucose 163, Hemoglobin A1c 7.3, Calcium Level 9.3 06/07/21 11:07: Glucometer 124 06/07/21 15:46: Glucometer 138 06/07/21 20:21: Glucometer 136 06/08/21 05:10: White Blood Count 8.3, Red Blood Count 4.25, Hemoglobin 12.2, Hematocrit 38, Mean Corpuscular Volume 90, Mean Corpuscular Hemoglobin 29, Mean Corpuscular Hemoglobin Concent 32, Red Cell Distribution Width 17.9, Platelet Count 304, Mean Platelet Volume 10.3, Immature Granulocyte % (Auto) 0, Neutrophils (%) (Auto) 74, Lymphocytes (%) (Auto) 11, Monocytes (%) (Auto) 13, Eosinophils (%) (Auto) 2, Basophils (%) (Auto) 1, Neutrophils # (Auto) 6.1, Lymphocytes # (Auto) 0.9, Monocytes # (Auto) 1.1, Eosinophils # (Auto) 0.1, Basophils # (Auto) 0.0, Immature Granulocyte # (Auto) 0.0, Sodium Level 139, Potassium Level 4.5, Chloride Level 99, Carbon Dioxide Level 28, Anion Gap 12, Blood Urea Nitrogen 18, Creatinine 1.07, Estimat Glomerular Filtration Rate 66, BUN/Creatinine Ratio 17, Glucose Level 142, Calcium Level 8.8, Corrected Calcium 9.3, Total Bilirubin 1.1, Aspartate Amino Transf (AST/SGOT) 26, Alanine Aminotransferase (ALT/SGPT) 15, Alkaline Phosphatase 47, Total Protein 6.7, Albumin 3.4, Triglycerides Level 80, Cholesterol Level 108, LDL Cholesterol Direct 69, VLDL Cholesterol 16, HDL Cholesterol 33 06/08/21 05:13: Glucometer 132 06/08/21 10:39: Glucometer 189 06/08/21 15:57: Glucometer 142 06/08/21 20:50: Glucometer 187 06/09/21 05:55: White Blood Count 8.9, Red Blood Count 4.38, Hemoglobin 12.7, Hematocrit 39, Mean Corpuscular Volume 90, Mean Corpuscular Hemoglobin 29, Mean Corpuscular Hemoglobin Concent 32, Red Cell Distribution Width 17.5, Platelet Count 302, Mean Platelet Volume 9.7, Immature Granulocyte % (Auto) 0, Neutrophils (%) (Auto) 72, Lymphocytes (%) (Auto) 12, Monocytes (%) (Auto) 14, Eosinophils (%) (Auto) 2, Basophils (%) (Auto) 1, Neutrophils # (Auto) 6.4, Lymphocytes # (Auto) 1.1, Monocytes # (Auto) 1.2, Eosinophils # (Auto) 0.1, Basophils # (Auto) 0.1, Immature Granulocyte # (Auto) 0.0, Sodium Level 140, Potassium Level 3.7, Chloride Level 96, Carbon Dioxide Level 31, Anion Gap 13, Blood Urea Nitrogen 18, Creatinine 1.04, Estimat Glomerular Filtration Rate 68, BUN/Creatinine Ratio 17, Glucose Level 128, Calcium Level 9.1, Corrected Calcium 9.3, Total Bilirubin 0.9, Aspartate Amino Transf (AST/SGOT) 18, Alanine Aminotransferase (ALT/SGPT) 15, Alkaline Phosphatase 53, Total Protein 6.8, Albumin 3.8 06/09/21 06:08: Glucometer 132 06/09/21 11:10: Glucometer 181 06/09/21 16:28: Glucometer 127 06/09/21 20:24: Glucometer 212 06/10/21 05:34: Glucometer 149 06/10/21 06:18: White Blood Count 8.9, Red Blood Count 4.30, Hemoglobin 12.3, Hematocrit 39, Mean Corpuscular Volume 90, Mean Corpuscular Hemoglobin 29, Mean Corpuscular Hemoglobin Concent 32, Red Cell Distribution Width 17.2, Platelet Count 279, Mean Platelet Volume 9.8, Immature Granulocyte % (Auto) 1, Neutrophils (%) (Auto) 72, Lymphocytes (%) (Auto) 11, Monocytes (%) (Auto) 14, Eosinophils (%) (Auto) 2, Basophils (%) (Auto) 1, Neutrophils # (Auto) 6.4, Lymphocytes # (Auto) 1.0, Monocytes # (Auto) 1.3, Eosinophils # (Auto) 0.2, Basophils # (Auto) 0.1, Immature Granulocyte # (Auto) 0.0, Sodium Level 140, Potassium Level 3.9, Chloride Level 96, Carbon Dioxide Level 32, Anion Gap 12, Blood Urea Nitrogen 20, Creatinine 1.07, Estimat Glomerular Filtration Rate 66, BUN/Creatinine Ratio 19, Glucose Level 147, Calcium Level 9.0, Corrected Calcium 9.3, Total Bilirubin 0.9, Aspartate Amino Transf (AST/SGOT) 20, Alanine Aminotransferase (ALT/SGPT) 19, Alkaline Phosphatase 50, Total Protein 6.5, Albumin 3.6 06/10/21 11:23: Glucometer 178 06/10/21 16:43: Glucometer 168 06/10/21 20:19: Glucometer 181 06/11/21 05:15: Sodium Level 141, Potassium Level 3.8, Chloride Level 96, Carbon Dioxide Level 32, Anion Gap 13, Blood Urea Nitrogen 20, Creatinine 0.96, Estimat Glomerular Filtration Rate 75, BUN/Creatinine Ratio 21, Glucose Level 126, Calcium Level 9.1 06/11/21 10:04: Glucometer 155 06/11/21 15:40: Glucometer 188 06/11/21 20:09: Glucometer 240 06/12/21 05:54: Glucometer 141 06/12/21 07:07: White Blood Count 8.5, Red Blood Count 4.72, Hemoglobin 13.2, Hematocrit 42, Mean Corpuscular Volume 89, Mean Corpuscular Hemoglobin 28, Mean Corpuscular Hemoglobin Concent 31, Red Cell Distribution Width 17.2, Platelet Count 310, Mean Platelet Volume 9.7, Immature Granulocyte % (Auto) 0, Neutrophils (%) (Auto) 71, Lymphocytes (%) (Auto) 13, Monocytes (%) (Auto) 13, Eosinophils (%) (Auto) 2, Basophils (%) (Auto) 1, Neutrophils # (Auto) 6.0, Lymphocytes # (Auto) 1.1, Monocytes # (Auto) 1.1, Eosinophils # (Auto) 0.2, Basophils # (Auto) 0.0, Immature Granulocyte # (Auto) 0.0, Sodium Level 139, Potassium Level 3.7, Chloride Level 95, Carbon Dioxide Level 28, Anion Gap 16, Blood Urea Nitrogen 20, Creatinine 1.10, Estimat Glomerular Filtration Rate 64, BUN/Creatinine Ratio 18, Glucose Level 131, Calcium Level 9.5, Corrected Calcium 9.5, Total Bilirubin 1.3, Aspartate Amino Transf (AST/SGOT) 27, Alanine Aminotransferase (ALT/SGPT) 32, Alkaline Phosphatase 61, Total Protein 7.2, Albumin 4.0 06/12/21 11:06: Glucometer 160 06/12/21 16:32: Glucometer 155 06/12/21 20:20: Glucometer 233 06/13/21 05:45: White Blood Count 8.7, Red Blood Count 4.53, Hemoglobin 12.9, Hematocrit 40, Mean Corpuscular Volume 89, Mean Corpuscular Hemoglobin 29, Mean Corpuscular Hemoglobin Concent 32, Red Cell Distribution Width 17.0, Platelet Count 314, Mean Platelet Volume 9.8, Immature Granulocyte % (Auto) 1, Neutrophils (%) (Auto) 72, Lymphocytes (%) (Auto) 11, Monocytes (%) (Auto) 15, Eosinophils (%) (Auto) 2, Basophils (%) (Auto) 1, Neutrophils # (Auto) 6.2, Lymphocytes # (Auto) 1.0, Monocytes # (Auto) 1.3, Eosinophils # (Auto) 0.2, Basophils # (Auto) 0.1, Immature Granulocyte # (Auto) 0.0, Sodium Level 138, Potassium Level 4.2, Chloride Level 97, Carbon Dioxide Level 31, Anion Gap 10, Blood Urea Nitrogen 21, Creatinine 0.96, Estimat Glomerular Filtration Rate 75, BUN/Creatinine Ratio 22, Glucose Level 151, Calcium Level 9.1, Corrected Calcium 9.4, Total Bilirubin 1.0, Aspartate Amino Transf (AST/SGOT) 23, Alanine Aminotransferase (ALT/SGPT) 28, Alkaline Phosphatase 57, Total Protein 6.7, Albumin 3.6 Discharge Home Medications: Active Scripts Active Potassium Chloride 10 Meq Capsule.er 10 Meq PO Q48H Lasix (Furosemide) 40 Mg Tablet 40 Mg PO DAILY Diltiazem 24Hr ER (Diltiazem HCl) 240 Mg Cap.er.24h 240 Mg PO DAILY@0900 Reported Spiriva Respimat 2.5MCG/ACTUATION (Tiotropium [place]) 4 Gm Mist.inhal 2 Puff IH DAILY [place]ela 500-50 [place]hub (Fluticasone Propion/Salmeterol) 1 Each Blst.w.dev 1 Each IH BID [place] Saline Nasal Gel (Sodium Chloride/Aloe Vera) 14.1 Gm Gel..gram. 1 Applic NS TID PRN [place] Saline (Sodium Chloride) 50 Ml [place] 1 [place] NS QID PRN Vitamin C (Ascorbate Calcium) 500 Mg Tablet 500 Mg PO BID Cinnamon (Cinnamon Bark) 500 Mg Capsule 500 Mg PO BID Vitamin D3 (Cholecalciferol (Vitamin D3)) 25 Mcg Capsule 25 Mcg PO DAILY Preservision Areds 2 Softgel (Vit C/E/Zn/Coppr/Lutein/Zeaxan) 1 Each Capsule 2 Each PO DAILY Montelukast Sodium 10 Mg Tablet 10 Mg PO HS Eliquis (Apixaban) 5 Mg Tablet 5 Mg PO BID Levemir Flextouch (Insulin Detemir) 100 Unit/1 Ml Insuln.pen 25 Unit SQ HS Instructions to patient/family Please see electronic discharge instructions given to patient. Diagnosis/Problems Diagnosis/Problems (1) Acute on chronic heart failure with preserved ejection fraction (HFpEF) Status: Acute (2) Permanent atrial fibrillation Status: Chronic (3) Primary hypertension GERI GONZALEZ DO Jun 13, 2021 10:59
--- NOTE | 2021-06-13 11:01 | D/C HH Face to Face Order ---
D/C HH Face to Face Orders Reconcile Patient Problems Problems Reviewed?: Yes Instructions for Patient HH Patient Instructions/FollowUp: PCP 1 week Physician to follow Patient: PCP Discharge Diet for Home: Low Sodium Diet Patient Problems: Debility CHF Patient Data-Allergies,Ht & Wt Patient Allergies: Coded Allergies: No Known Allergies (Unverified Allergy, Unknown, 07/30/18) Height (Feet): 5 Height (Inches): 8.00 Weight (Pounds): 223 Weight (Ounces): 0.8 Home Health Need/Face to Face Date of Face to Face: Jun 13, 2021 Clinical Findings: Generalized weakness and fatigue, Immune-compromised, Instability, Muscle weakness, Shortness of breath, Unsteady gait I have seen Pt [id number]: Yes Discharged To: Home Diagnosis/Conditions: Debility Patient is Homebound due to: Mabel fall risk due to instabilty, Muscle weakness, Shortness of breath/distress Homebound Status Due to the above stated illness, injury or surgical procedure (medical condition or diagnosis) and associated clinical findings, the patient is homebound because of his/her inability to leave home except with aid of a supportive device and/or person AND leaving the home requires a considerable and taxing effort or is medically contraindicated. Pt req the following assistanc: [facility] Nursing Orders Home Health Services Order: Piling Setter-Evaluate & Treat, Physical Therapy-Evaluate & Treat Home Health Infusion Therapy Line Start Date: Jun 07, 2021 Certify Stmt I certify that this patient is under my care and that I, a nurse practitioner or a physician; a sales assistant displays working with me, had a face to face encounter that - meets the physician face to face encounter requirements with this patient as dated. ESTEFANIA GONZALEZ DO Jun 13, 2021 11:01
--- NOTE | 2021-06-13 11:25 | Occupational Ther Daily Note ---
OT Current Status-Daily Note Subjective Daughter calling down rm for assistance secondary to her fathers oxygen dropping into low 70's. Appearance Pt left sitting on side of bed with daughter present in room. Mental Status/Objective Patient Orientation: Person, Place, Situation Attachments: IV, Oxygen ADL-Treatment Therapy Code Descriptions/Definitions Functional [place] Measure: 0=Not Assessed/NA 4=Minimal Assistance 1=Total Assistance 5=Supervision or Setup 2=Maximal Assistance 6=Modified [place] 3=Moderate Assistance 7=Complete IndependenceSCALE: Activities may be completed with or without assistive devices. 6-Kiorhciebl-yeeaxij completes the activity by him/herself with no assistance from a helper. 5-Set-up or Clean-up Assistance-helper sets up or cleans up; patient completes activity. [place] assists only prior to or following the activity. 4-Supervision or Touching Assistance-helper provides verbal cues and/or touching/steadying and/or contact guard assistance as patient completes activity. Assistance may be provided throughout the activity or intermittently. 3-Partial/Moderate Assistance-helper does LESS THAN HALF the effort. [place] lif ts, holds or supports trunk or limbs, but provides less than half the effort. 2-Substantial/Maximal Assistance-helper does MORE THAN HALF the effort. [place] lifts or holds trunk or limbs and provides more than half the effort. 6-Wmqmqpsga-fcsgpx does ALL the effort. Patient does none of the effort to complete the activity. Or, the assistance of 2 or more helpers is required for the patient to complete the activity. If activity was not attempted, code reason: 7-Patient Refused. 9-Not Applicable-not attempted and the patient did not perform the activity before the current illness, exacerbation or injury. 10-Not Attempted due to Environmental Limitations-(lack of equipment, weather restraints, etc.). 88-Not Attempted due to Medical Conditions or Safety Concerns. Toileting Hygiene (QC): 4 Toilet Transfer (QC): 4 Daughter calling down rm for assistance secondary to her fathers oxygen dropping into low 70's. Pt sitting on toilet at OT arrival. Reports difficulty b reathing. OT able to hear oxygen coming from wall (does not appear to be a tight seal). After adjusting wall tubing, pt's oxygen quickly increases to mid 80's. It appears pt urinated on floor on way to bathroom. Daughter in room cleaning up floor and pt's leg. Daughter reports she will assist with donning new socks, declines help. He was able to perform yuli care independently. He ambulated back to room with SBA. Oxygen 88% while sitting EOB. HR in 130's. OT increased oxygen from 10 to 11L. Oxygen quickly increases to 94%, HR 113-118 with rest. Education to family/patient on safety. Pt declines further help. Education OT Patient Education: Correct positioning, Energy conservation, Modified ADL techniques, Purpose of tx/functional activities, Safety issues Teaching Recipient: Patient Teaching Methods: Discussion Response to Teaching: Verbalize Understanding, Reinforcement Needed OT Endo Tech Goals Custodial Goals Time Frame: Jun 14, 2021 Oral Hygiene (QC): 5 Toileting Hygiene (QC): 5 Upper Body Dressing (QC): 5 Lower Body Dressing (QC): 5 1=Demonstrate adherence to instructed precautions during ADL tasks. 2=Patient will verbalize/demonstrate understanding of assistive devices/modifications for ADL. 3=Patient will improve strength/tolerance for activity to enable patient to perform ADL's. OT Education/Plan Problem List/Assessment Assessment: Decreased Activ Tolerance, Decreased Safety Aware, Impaired Self- Care Skills Discharge Recommendations Plan/Recommendations: Continue POC Treatment Plan/Plan of Care Treatment,Training & Education: Yes Patient would benefit from OT for education, treatment and training to promote independence in ADL's, mobility, safety and/or upper extremity function for ADL's. Plan of Care: ADL Retraining, Functional Mobility, UE Funct Exercise/Act Treatment Duration: Jun 14, 2021 Frequency: 3 times per week Estimated Hrs Per Day: .25 hour per day Agreement: Yes Rehab Potential: Fair Time/GCodes Start Time: 10:00 Stop Time: 10:12 Total Time Billed (hr/min): 12 Billed Treatment Time 1, ADL Rita Gongora OT Jun 13, 2021 11:25
--- NOTE | 2021-06-13 11:27 | Progress Note ---
[facility] 06/13/21 1127: Progress Note Brief Hospital Course: Patient was admitted on 06/07/2021 for CHF exacerbation and discharged at relative baseline on 06/13/2021. At presentation to the ED ( 06/07/2021), patient received a CBC, CMP, Pro-BNP, Coagulation studies, COVID-19 Swab, and Chest x-ray. Pertinent labs revealed a Pro-BNP of 2967, creatinine of 1.28, BUN of 26 and GFR of 55. Chest X-ray on presentation showed Pulmonary edema. Patient was admitted to Internal Medicine (Dr. Gonzalez) and Consulted Cardiology (Dr. Odom), Physical Therapy, and Occupational therapy. Cardiology work-up included an echocardiogram revealing: Severe Concentric hypertrophy of the left ventricle, normal systolic function, Hypokinesis of the basal-mid inferoseptal and apical septal myocardium. left atrium is severely dilated with a volume index of 63 mL/m, right atrium is severely dilated with an area of 41 cm, moderate mitral regurgitation, moderate-severe tricuspid regurgitation, pulmonary artery systolic pressure is 89 mmHg. Patient received furosemide twice daily due to admission diagnosis and was placed on diltiazem due to the Afib with RVR of 113 BPM. Other home medications were resumed throughout the hospital course. Other interventions for the LE edema included MAGUI wraps, and soap suds enema for bowel movement. The day the patient was discharged, patient was placed on 40 mg of furosemide, 240 mg of diltiazem, and resumed home medications. Patient was also on baseline Oxygen requirement (8-10L). This summary does not include the entirety of the patient's visit and is only a short description of pertinent lab values and information. For the complete hospital course, please refer to the patient's chart. Date of Admission: 06/07/2021 Date of Discharge: 06/13/2021 Attending Physician: Dr. Geri Gonzalez PCP: Dr. Sherri Zambrano Admission Diagnosis: CHF Exacerbation, Hypoxia, Dyspnea on Exertion Discharge Diagnosis: CHF, Pulmonary hypertension, Mitral regurgitation, tricuspid regurgitation. Secondary Diagnoses: COPD O2 dependent, Insulin dependent Type 2 Diabetes, Atrial Fibrillation Consultations: Cardiology, PT, OT Procedures: Echocardiogram HPI: 85 yo male with a PMH of COPD O2 dependent, Insulin dependent Type 2 Diabetes, Atrial Fibrillation that presented to hospital for LE edema. Patient reported that the swelling does go down during the night when he is sleeping, but gets worse throughout the day. During this time he has also been experiencing increasing fatigue, increasing work of respiration, and dyspnea on exertion (less than 10 feet of walking). [place] oxygen requirement is 8-10 L of O2 and is currently on 15L. Chest x-ray revealed pulmonary edema. Pro-BNP was 2967 with negative troponins. Patient has never been hospitalized before for this issue and denied fevers, chills, abdominal pain, nausea, and vomiting. GERI GONZALEZ DO 06/14/21 0520: Supervisory-Addendum Brief Verification & Attestation Participated in pt care: history, MDM, physical Personally performed: exam, history, MDM, supervision of care Care discussed with: Medical Student Procedures: n/a Results interpretation: Verified all documentation Verification and Attestation of Medical Student E/M Service A medical student performed and documented this service in my presence. I reviewed and verified all information documented by the medical student and made modifications to such information, when appropriate. I personally performed the physical exam and medical decision making. Geri Gonzalez, Jun 14, 2021,05:20 DAV[facility] PERAZA STUD Jun 13, 2021 11:27 GERI GONZALEZ DO Jun 14, 2021 05:20
== END 2021-06-13 13:00 | disposition home health service (06) | DRG 291 ==
LOC: EDUNIT# 23:50 → ER FS 23:51 → 4TH 06-07 03:40
PROVIDERS: ADMIT Internal Medicine; ATTEND Internal Medicine
DX: I13.0 Hypertensive heart and chronic kidney disease with heart failure and stage 1 through stage 4 chronic kidney disease, or unspecified chronic kidney disease (principal); I50.33 Acute on chronic diastolic (congestive) heart failure; J96.21 Acute and chronic respiratory failure with hypoxia; J44.1 Chronic obstructive pulmonary disease with (acute) exacerbation; I48.21 Permanent atrial fibrillation; N17.9 Acute kidney failure, unspecified; I48.91 Unspecified atrial fibrillation; Z20.822 Contact with and (suspected) exposure to COVID-19; E11.22 Type 2 diabetes mellitus with diabetic chronic kidney disease; H35.30 Unspecified macular degeneration; K59.00 Constipation, unspecified; N18.9 Chronic kidney disease, unspecified; G47.33 Obstructive sleep apnea (adult) (pediatric); Z99.81 Dependence on supplemental oxygen; I27.20 Pulmonary hypertension, unspecified; I08.1 Rheumatic disorders of both mitral and tricuspid valves; R53.81 Other malaise; Z79.4 Long term (current) use of insulin; Z79.84 Long term (current) use of oral hypoglycemic drugs; Z79.899 Other long term (current) drug therapy; Z87.891 Personal history of nicotine dependence
CPT/HCPCS: 36415; 71045; 71046; 80048; 80053; 80061; 81000; 82947; 83036; 83735; 83880; 84484; 85025; 85610; 85730; 86141; 87635; 87636; 87804; 93005; 93041; 93306; 94640; 94760; 96374; 96375

== ENCOUNTER → 2021-06-27 | Outpatient (CLI) | payer MEDICARE ==
[~2021-06-27] MED LIST changes: +APIX5TAB PO; +ASCO-262 PO; +CHOL100048 PO; +CINN500C2 PO; +DILT240C91 PO; +FLUT1BLS10 IH; +FURO-124 PO; +FURO20TA4 PO; -HOLD METFORMIN - RECEIVED CONTRAST 20 ML VIAL IV SCH; +INSU100I29 SQ; -IOHEXOL 350 MG/ML 100 ML (OMNIPAQUE 350) VIAL IV ONE; +LOSA50TA63 PO; +METF-399 PO; +METO-333 PO; +MONT-40 PO; +POTA10CA43 PO; -RT-ALBUTEROL SULF 2.5 MG/3 ML PRE-MIX VIAL INH ONE; +SODI0.5GEL NS; +SODI50SP NS; +TIOT4MIS2 IH; +VIT1CAPS44 PO
--- NOTE | 2021-06-27 13:02 | Diagnostic Imaging Report ---
Indication: Cough and shortness of air. TIME OF EXAM: 12:55 PM Correlation is made with prior chest 06/11/2021. The heart is enlarged. There is central congestion. There are some interstitial changes particularly along the periphery of the left upper and lower lung field, similar to prior study. May be chronic. No parenchymal consolidation is seen. No effusion or pneumothorax. IMPRESSION: Cardiomegaly and central congestion. There are some interstitial changes similar to prior exam and potentially chronic. Dictated by: Dictated on workstation # [id number]
== END ==
LOC: RAD 12:25
PROVIDERS: ATTEND Internal Medicine Cardiovascular Disease
DX: I51.7 Cardiomegaly (principal); I50.32 Chronic diastolic (congestive) heart failure; R91.8 Other nonspecific abnormal finding of lung field
CPT/HCPCS: 71046

== ENCOUNTER 2021-08-25 07:55 | Day surgery (SDC) | payer MEDICARE ==
[2021-08-25] VITALS (8 sets, daily range): BP systolic 117–147; BP diastolic 67–97
[~2021-08-25] VITALS: Ht 172.7 cm; Wt 101.6 kg
[2021-08-25] MEDS ORDERED: LIDOCAINE 1% INJ 50 ML (XYLOCAINE) VIAL ONE (08:00)
[2021-08-25] MEDS ORDERED: HEParin (CATH LAB) 2,000 ML IV ONE (08:00)
[2021-08-25] MEDS ORDERED: NS IV 1000 ML 1,000 ML ONE (08:00)
[2021-08-25] MEDS ORDERED: CATHETER FLUSH 10 ML SYR IV PRN (08:00)
[2021-08-25] MEDS ORDERED: NS IV 1000 ML 1,000 ML IV ONE (08:00)
[2021-08-25] MEDS ORDERED: HEParin 1000 UNIT/ML (10ML VIAL) FOR BOLUS ONE (08:15)
[2021-08-25] MEDS ORDERED: NITRO DRIP 25000 MCG/D5W 0 ML IV ONE (08:15)
[2021-08-25] MEDS ORDERED: VERAPAMIL 5 MG/2 ML (CALAN) VIAL IV ONE (08:15)
[2021-08-25] MEDS ORDERED: ALB0.5V INH (08:38)
[2021-08-25] MEDS ORDERED: BUDE10.2 IH (08:38)
[2021-08-25] MEDS ORDERED: VIT1CAPS44 PO (08:38)
[2021-08-25] MEDS ORDERED: PSYL660P17 PO (08:38)
--- NOTE | 2021-08-25 08:47 | Pre-Op Note & Conscious Sedat ---
Pre-Operative Progress Note H&P Reviewed The H&P was reviewed, patient examined and no changes noted. Date H&P Reviewed: Aug 25, 2021 Time H&P Reviewed: 08:46 Pre-Op Diagnosis: Pulmonary hypertension Conscious Sedation Pre-Proced ASA Score 2 For ASA 3 and 4: Consider anesthesia and medical clearance. Also, for patients with a history of failed moderate sedation consider anesthesia. Airway Lungs Heart ASA score ASA 1: a normal healthy patient ASA 2: a patient with a mild systemic disease (mid diabetes, controlled hypertension, obesity ASA 3: a patient with a severe systemic disease that limits activity (angina, COPD, prior Myocardial infarction) ASA 4: a patient with an incapacitating disease that is a constant threat to life (CHF, renal failure) ASA 5: a moribund patient not expected to survive 24 hrs. (ruptured aneurysm) ASA 6: a declared brain- patient whose organs are being harvested. For emergent operations, add the letter E after the classification Mallampati Classification Grade 2 Sedation Plan Analgesia, Amnesia, Plan communicated to team members, Discussed options with patient/fam, Discussed risks with patient/fam The patient is an appropriate candidate to undergo the planned procedure, sedation, and anesthesia. The patient immediately re-assessed prior to indication. ENZO PEDERSON JR, MD Aug 25, 2021 08:46
[2021-08-25] MEDS ORDERED: fentaNYL INJ 100 MCG/2 ML AMP ONE (09:57)
[2021-08-25] MEDS ORDERED: MIDAZOLAM 5 MG/5 ML (VERSED) VIAL ONE (09:57)
[2021-08-25] MEDS ORDERED: NS IV 1000 ML 1,000 ML IV SCH (10:30)
[2021-08-25] MEDS ORDERED: PATIENT MAY USE OWN MEDS, ALL PO SCH (10:30)
--- NOTE | 2021-08-25 10:33 | Cardiac Cath Report ---
CARDIAC CATHETERIZATION DATE OF PROCEDURE: 08/25/2021 INDICATION: Pulmonary hypertension. HISTORY: The patient is a 86 year old male with a history of pulmonary hypertension of undetermined etiology who is now referred for a right heart catheterization PROCEDURES PERFORMED: 1. Right heart catheterization with hemodynamic measurements. PROCEDURE DESCRIPTION: After informed consent and in the fasting state, right heart catheterization was performed through the right femoral vein utilizing a 7 Norwegian system by percutaneous approach. A 7 [place] S-tipped [place] was utilized for the procedure. Following the procedure, a Mynx closure device was deployed for hemostasis. RESULTS: HEMODYNAMICS: The mean right atrial pressure was 14 mmHg. The right ventricular pressure was 78/6 mmHg. The pulmonary artery pressure was 68/34 mmHg with a mean of 45 mmHg. The mean pulmonary capillary wedge pressure was 16 mmHg. No oxygen saturation or cardiac outputs were performed. IMPRESSION: 1. Severe pulmonary hypertension with elevated right atrial and pulmonary capillary wedge pressures as outlined above. Certain portions of this document may have been dictated utilizing voice recognition technology. Inherent to this technology, typographical and grammatical errors may exist. As much as I am diligent to identify and correct these mistakes, some errors may remain in the document.. ENZO PEDERSON JR, MD Aug 25, 2021 10:33
== END 2021-08-25 14:10 | disposition home or self-care (01) ==
LOC: CATH 07:55
PROVIDERS: ATTEND Internal Medicine Cardiovascular Disease
DX: I27.20 Pulmonary hypertension, unspecified (principal); E66.9 Obesity, unspecified; I13.0 Hypertensive heart and chronic kidney disease with heart failure and stage 1 through stage 4 chronic kidney disease, or unspecified chronic kidney disease; I50.32 Chronic diastolic (congestive) heart failure; N18.30 Chronic kidney disease, stage 3 unspecified; I48.21 Permanent atrial fibrillation; I71.2 Thoracic aortic aneurysm, without rupture; I34.0 Nonrheumatic mitral (valve) insufficiency; J44.9 Chronic obstructive pulmonary disease, unspecified; J96.11 Chronic respiratory failure with hypoxia; Z87.891 Personal history of nicotine dependence; Z79.899 Other long term (current) drug therapy; Z68.34 Body mass index [BMI] 34.0-34.9, adult
CPT/HCPCS: 93451; C1760; C1894

== ENCOUNTER → 2021-10-04 | Outpatient (CLI) | payer MEDICARE, OTHER ==
[~2021-10-04] MED LIST changes: +ALB0.5V INH; +BUDE10.2 IH; +PSYL660P17 PO
--- NOTE | 2021-10-04 18:31 | Diagnostic Imaging Report ---
INDICATION: Bilateral knee pain. Time of Exam: 3:29 PM Two views of each knee were obtained. There are postop changes of bilateral total knee arthroplasties. Prosthetic elements appear to be in good position without fracture or loosening. There is no joint effusion. There are vascular calcifications within the femoral popliteal as well as tibial system. IMPRESSION: Bilateral total knee arthroplasties. No acute feature is detected. Dictated by: Dictated on workstation # [id number]
== END ==
LOC: RAD FS 15:11
PROVIDERS: ATTEND Family Medicine
DX: M17.0 Bilateral primary osteoarthritis of knee (principal)

== ENCOUNTER → 2021-11-10 | Outpatient (CLI) | payer MEDICARE, OTHER ==
[2021-11-10 17:06] LABS: BILIRUBIN,URINE NEGATIVE (NEGATIVE); CLARITY,URINE CLEAR; COLOR,URINE YELLOW; GLUCOSE, URINE (UA) NEGATIVE (NEGATIVE); KETONES,URINE NEGATIVE (NEGATIVE); LEUKOCYTE ESTERASE ,URINE NEGATIVE (NEGATIVE); NITRITE,URINE NEGATIVE (NEGATIVE); PROTEIN,URINE NEGATIVE (NEGATIVE)
[2021-11-10 17:15] LABS: BACTERIA,URINE NEGATIVE /HPF; WBC,URINE RARE /HPF
== END ==
LOC: LAB FS 15:58
PROVIDERS: ATTEND Registered Nurse Emergency
DX: M54.50 Low back pain, unspecified (principal)
CPT/HCPCS: 81000

== ENCOUNTER → 2021-11-15 | Outpatient (CLI) | payer MEDICARE, OTHER ==
--- NOTE | 2021-11-15 17:59 | Diagnostic Imaging Report ---
EXAMINATION: Chest 2 view HISTORY: Heart failure. COMPARISON: 06/27/2021. FINDINGS: There is moderate edema. There is no pleural effusion. No pneumothorax. Heart is mildly enlarged. IMPRESSION: 1. Moderate pulmonary edema. Dictated by: Dictated on workstation # [id number]
== END ==
LOC: RAD FS 15:38
PROVIDERS: ATTEND Internal Medicine Cardiovascular Disease
DX: I50.9 Heart failure, unspecified (principal)
CPT/HCPCS: 71046

== ENCOUNTER → 2021-11-25 | Outpatient (CLI) | payer MEDICARE, OTHER ==
[2021-11-25 14:17] LABS: CALCIUM 9.6 MG/DL (8.5-10.1); CREATININE SERUM 0.89 MG/DL (0.60-1.30); POTASSIUM 4.9 MMOL/L (3.6-5.0)
--- NOTE | 2021-11-25 15:26 | Diagnostic Imaging Report ---
Indication: Congestive heart failure. Time of Exam: 1:43 PM Correlation is made with prior chest 11/15/2021. Heart is enlarged. There are peripheral based interstitial changes in both lungs, similar to prior study. No parenchymal consolidation is seen. No effusion or pneumothorax is identified. Impression: Cardiomegaly and interstitial changes, similar to prior study. This may be owing to interstitial fibrosis. Dictated by: Dictated on workstation # [id number]
== END ==
LOC: LAB FS 13:26
PROVIDERS: ATTEND Internal Medicine Cardiovascular Disease
DX: I13.0 Hypertensive heart and chronic kidney disease with heart failure and stage 1 through stage 4 chronic kidney disease, or unspecified chronic kidney disease (principal); I50.32 Chronic diastolic (congestive) heart failure; N18.30 Chronic kidney disease, stage 3 unspecified; I48.21 Permanent atrial fibrillation; I27.20 Pulmonary hypertension, unspecified; I71.2 Thoracic aortic aneurysm, without rupture; I34.0 Nonrheumatic mitral (valve) insufficiency; J44.9 Chronic obstructive pulmonary disease, unspecified; J96.11 Chronic respiratory failure with hypoxia; E66.9 Obesity, unspecified; Z71.89 Other specified counseling
CPT/HCPCS: 36415; 71046; 80048

== ENCOUNTER 2021-11-30 11:49 | Emergency (ER) | payer MEDICARE ==
[~2021-11-30] VITALS: Ht 170 cm; Wt 96.0 kg
--- NOTE | 2021-11-30 12:40 | ED EENT ---
History of Present Illness General Chief Complaint: Nasal Problems Stated Complaint: EPISTAXIS Source: patient (DEVON PRATHER MD) History of Present Illness Date Seen by Provider: Nov 30, 2021 Time Seen by Provider: 11:54 Initial Comments 86-year-old male presenting with complaints of bleeding from his left nare. He does use oxygen chronically and has Eliquis that he takes chronically as well. He has had previous nosebleeds that required cautery. He does try to use an Alum cautery stick at the snf but it was not helping. Using Afrin was not helping either. He has an appointment to see Dr. Landry for cauterization with him but it is not until mid December. Timing/Duration: abrupt Severity: moderate Location: nose Prearrival Treatment: over the counter meds, squeezing nostrils, nasal packing Modifying Factors: Worse With Coughing, Worse With Oxygen Associated Symptoms: No change in hearing, No cough, No drooling, No ear drainage, No facial pain/swelling, No fever, No malaise; nasal congestion/drainage; No poor fluid intake, No poor solids intake, No sinus infection, No sore throat, No tooth pain, No voice change (DEVON PRATHER MD) Allergies and Home Medications Allergies Coded Allergies: No Known Allergies (Unverified Allergy, Unknown, 07/30/18) Patient Home Medication List Home Medication List Reviewed: Yes (DEVON PRATHER MD) Albuterol Sulfate (Albuterol Sulfate) 2.5 Mg/0.5 Ml Vial.neb, 2.5 MG INH Q6H, (Reported) Entered as Reported by: Ame Angeles on 08/25/21 0838 Apixaban (Eliquis) 5 Mg Tablet, 5 MG PO BID, (Reported) Entered as Reported by: KYLE MCCLELLAND on 06/07/21 1520 Ascorbate Calcium (Vitamin C) 500 Mg Tablet, 500 MG PO BID, (Reported) Entered as Reported by: KYLE MCCLELLAND on 06/07/21 1520 Budesonide/Formoterol Fumarate (Symbicort 160-4.5 Mcg Inhaler) 10.2 Gm Hfa.aer.ad, 2 PUFF IH BID, (Reported) Entered as Reported by: Ame Angeles on 08/25/21 0838 Cholecalciferol (Vitamin D3) (Vitamin D3) 25 Mcg Capsule, 25 MCG PO DAILY, (Reported) Entered as Reported by: KYLE MCCLELLAND on 06/07/21 152 Cinnamon Bark (Cinnamon) 500 Mg Capsule, 500 MG PO BID, (Reported) Entered as Reported by: KYLE MCCLELLAND on 06/07/21 152 Diltiazem HCl (Diltiazem 24Hr ER) 240 Mg Cap.er.24h, 240 MG PO DAILY@0900 Prescribed by: ESTEFANIA GONZALEZ on 06/13/21 105 Fluticasone Propion/Salmeterol (Wixela 500-50 Inhub) 1 Each Blst.w.dev, 1 EACH IH BID, (Reported) Entered as Reported by: KYLE MCCLELLAND on 06/07/21 152 Furosemide (Lasix) 40 Mg Tablet, 40 MG PO DAILY Prescribed by: ESTEFANIA GONZALEZ on 06/13/21 105 Insulin Detemir (Levemir Flextouch) 100 Unit/1 Ml Insuln.pen, 30 UNIT SQ HS, (Reported) Entered as Reported by: KYLE MCCLELLAND on 06/07/21 152 Montelukast Sodium (Montelukast Sodium) 10 Mg Tablet, 10 MG PO HS, (Reported) Entered as Reported by: KYLE MCCLELLAND on 06/07/21 152 Potassium Chloride (Potassium Chloride) 10 Meq Capsule.er, 10 MEQ PO Q48H Prescribed by: ESTEFANIA GONZALEZ on 06/13/21 1058 Psyllium Husk (Metamucil) 660 Gm Powder, 660 GM PO BID PRN, (Reported) Entered as Reported by: Ame Angeles on 08/25/21 0838 Sodium Chloride ([place] Saline) 50 Ml [place], 1 SPRAY NS QID PRN for DRY NOSE, (Reported) Entered as Reported by: KYLE MCCLELLAND on 06/07/21 152 Sodium Chloride/Aloe Vera ([place] Saline Nasal Gel) 14.1 Gm Gel..gram., 1 APPLIC NS TID PRN for DRY NOSE, (Reported) Entered as Reported by: KYLE MCCLELLAND on 06/07/21 152 Tiotropium [place] (Spiriva Respimat 2.5MCG/ACTUATION) 4 Gm Mist.inhal, 2 PUFF IH DAILY, (Reported) Entered as Reported by: KYLE MCCLELLAND on 06/07/21 1520 Vit C/E/Zn/Coppr/Lutein/Zeaxan (Preservision Areds 2 Softgel) 1 Each Capsule, 2 EACH PO DAILY, (Reported) Entered as Reported by: KYLE MCCLELLAND on 06/07/21 1520 Vit C/E/Zn/Coppr/Lutein/Zeaxan (Preservision Areds 2 Softgel) 1 Each Capsule, 1 EACH PO DAILY, (Reported) Entered as Reported by: Ame Angeles on 08/25/21 0838 Review of Systems Review of Systems Constitutional: No chills, No fever Eyes: No Symptoms Reported Ears: No Symptoms Reported Nose: see HPI Mouth: no symptoms reported Throat: no symptoms reported Respiratory: no symptoms reported Cardiovascular: no symptoms reported Gastrointestinal: no symptoms reported Musculoskeletal: no symptoms reported Skin: no symptoms reported (DEVON PRATHER MD) Past Uaepcgi-Fovrig-Mtzmcv Hx Immunizations Up To Date First/Initial COVID19 Vaccinat: 06/12/20 Second COVID19 Vaccination Bala: 07/16/20 Third COVID19 Vaccination Date: 06/12/20 (DEVON PRATHER MD) Seasonal Allergies Seasonal Allergies: No (DEVON PRATHER MD) Past Medical History Surgery/Hospitalization HX: Hypoxia, COPD with abn PFT's, Cardiomegaly, Chronic SOA, A Fib, Hx Bradycardia with syncope, Recurrent Epistaxis Surgeries: Yes (bilateral knee, inguinal hernia (left)) Adenoidectomy Respiratory: Yes COPD Cardiac: Yes Atrial Fibrillation, High Cholesterol, Hypertension, Syncope Neurological: No Vertigo Genitourinary: No Gastrointestinal: No Hiatal Hernia Musculoskeletal: No Endocrine: No Diabetes, Insulin dep HEENT: No Macular Degeneration Cancer: No Skin Psychosocial: No Blood Disorders: No (DEVON PRATHER MD) Family Medical History Cancer, Other Conditions/Hx (DEVON PRATHER MD) Physical Exam Vital Signs Vital Signs - First Documented 11/30/21 14:10 Temp 36.1 Pulse 84 Resp 20 B/P (MAP) 129/71 Pulse Ox 97 O2 Delivery Nasal Cannula O2 Flow Rate 10.00 (ESTELLA SAWANT) Height, Weight, BMI Height: 5'8.00" Weight: 223lbs. 0.8oz. 101.676757ld; 34.06 BMI Method:Stated General Appearance: WD/WN, no apparent distress Nose: active bleeding (left nare) Neck: non-tender, full range of motion, supple Cardiovascular: normal peripheral pulses, regular rate, rhythm Neurologic/Psychiatric: alert, oriented x 3 Skin: warm/dry (DEVON PRATHER MD) Procedures/Interventions Nasal : Nasal Location: Left Clots Cleared from Nasal: Patient Blowing Nasal Drops Instilled: Cocaine, Artemio-Synephrine Inspection with: Otoscope Nasal Procedures: Cauterized w/Silver Nitra, Merocel Sponge (DEVON PRATHER MD) Progress/Results/Core Measures Results/Orders Lab Results Laboratory Tests Test 11/30/21 15:35 Range/Units White Blood Count 11.5 H 4.3-11.0 10^3/uL Red Blood Count 4.91 4.30-5.52 10^6/uL Hemoglobin 14.5 13.3-17.7 g/dL Hematocrit 44 40-54 % Mean Corpuscular Volume 90 80-99 fL Mean Corpuscular Hemoglobin 30 25-34 pg Mean Corpuscular Hemoglobin Concent 33 32-36 g/dL Red Cell Distribution Width 16.5 H 10.0-14.5 % Platelet Count 292 130-400 10^3/uL Mean Platelet Volume 9.4 9.0-12.2 fL Immature Granulocyte % (Auto) 0 % Neutrophils (%) (Auto) 77 H 42-75 % Lymphocytes (%) (Auto) 11 L 12-44 % Monocytes (%) (Auto) 11 0-12 % Eosinophils (%) (Auto) 1 0-10 % Basophils (%) (Auto) 0 0-10 % Neutrophils # (Auto) 8.8 H 1.8-7.8 X 10^3 Lymphocytes # (Auto) 1.3 1.0-4.0 X 10^3 Monocytes # (Auto) 1.3 H 0.0-1.0 X 10^3 Eosinophils # (Auto) 0.1 0.0-0.3 10^3/uL Basophils # (Auto) 0.0 0.0-0.1 10^3/uL Immature Granulocyte # (Auto) 0.0 0.0-0.1 10^3/uL Prothrombin Time 17.6 H 12.2-14.7 SEC INR Comment 1.4 0.8-1.4 Activated Partial Thromboplast Time 38 H 24-35 SEC Sodium Level 138 135-145 MMOL/L Potassium Level 4.4 3.6-5.0 MMOL/L Chloride Level 96 L 98-107 MMOL/L Carbon Dioxide Level 29 21-32 MMOL/L Anion Gap 13 5-14 MMOL/L Blood Urea Nitrogen 25 H 7-18 MG/DL Creatinine 0.89 0.60-1.30 MG/DL Estimat Glomerular Filtration Rate 85 BUN/Creatinine Ratio 28 Glucose Level 150 H 70-105 MG/DL Calcium Level 9.6 8.5-10.1 MG/DL Corrected Calcium 9.7 8.5-10.1 MG/DL Total Bilirubin 1.1 H 0.1-1.0 MG/DL Aspartate Amino Transf (AST/SGOT) 17 5-34 U/L Alanine Aminotransferase (ALT/SGPT) 25 0-55 U/L Alkaline Phosphatase 75 40-136 U/L Total Protein 7.4 6.4-8.2 GM/DL Albumin 3.9 3.2-4.5 GM/DL (ESTELLA SAWANT) My Orders Orders - ESTELLA SAWANT Cbc With Automated Diff (11/30/21 15:29) Comprehensive Metabolic Panel (11/30/21 15:29) Partial Thromboplastin Time (11/30/21 15:29) Protime With Inr (11/30/21 15:29) Lidocaine/Epi 1% 1:100,000 (Xylocaine 1% (11/30/21 16:21) Cocaine 4% Topical Solution (Cocaine 4% (11/30/21 16:21) (ESTELLA SAWANT) Vital Signs/I&O 11/30/21 11/30/21 11/30/21 11/30/21 14:10 14:14 14:43 15:19 Temp 36.1 36.4 37.0 Pulse 84 122 84 125 Resp 20 20 20 20 B/P (MAP) 129/71 132/82 (99) 132/82 (99) 125/65 (85) Pulse Ox 97 94 97 96 O2 Delivery Nasal Cannula Nasal Cannula Nasal Cannula Nasal Cannula O2 Flow Rate 10.00 10.00 10.00 10.00 (ESTELLA SAWANT) Progress Progress Note #1: Progress Note Using Silver Nitrate stick the septum was cauterized to see if could control the bleeding. Then applied direct pressure by nurse for 5 minutes to see if that would keep bleeding controlled. He had already tried Artemio-synephrine spray at the [facility] [employer]. Progress Note #2: Progress Note Despite the Silver nitrate cautery to anterior septum he continued to have bleeding down the back of his throat. Repeat application of Artemio-Synephrine and direct pressure for 5 minutes was tried but still did not achieve hemostasis. Merocel packing was applied with 4% cocaine topical but he continued to have bleeding down the back of his throat. [address] Landry since pt reports seeing him previously and having appointment on December 17. Dr. Landry stated he was not director economic but was gracious enough to say he would see the patient if he presented to the ED in [place]. 1404 d/w TREVER Sawant working with Dr. Marcos at [facility] ED. Made aware of the patient and that we have been trying for 2 hours to get bleeding to stop. Dr. Landry stated he would come see the patient to see if there was anything else he could do since the options I have tried here have not worked. I have not placed a rhino rocket for packing since pt is oxygen dependent at 10 LPM and reports with his deviated septum he can not breath through right nare. I advised him that I could try the rhino rocket while he is travelling to [place] for short term trial of something more to stop the bleeding. He did want to try this. Rhino Rocket 7.5 cm Anterior/Posterior packing placed in left nare and taped in place. Advised to go to [facility] ED and they will call Dr. Landry after pt arrives. Progress Note #3: Progress Note From review of the chart after he was seen at the ED in [place] he had labs drawn that showed stable hemoglobin and no acute significant reason for his recurrent epistaxis other than elevated coags from taking blood thinner. Bl eeding was not controlled with the rhino rocket from here in [place] ED prior to his family driving him to [place]. Dr. Landry came in to see the patient and was able to get the bleeding to stop. Pt was discharged to home in stable condition and has appointment on December [address] Landry unless Dr. Landyr had him change anything after seeing him in the ED today. (DEVON PRATHER MD) Departure Communication (PCP) Patient was transferred to our ER for ENT evaluation. Patient was initially seen at [place] ER and transferred here for further evaluation by ENT. On arrival, patient had continuous bleeding of the left naris after Rhino Rocket. Coughing up bright red blood. Currently on 10 L O2 and shows no signs of respiratory distress. Normal blood pressure. Not anemic. Patient was discussed with ENT Dr. Landry who saw patient here in the ER and performed procedure for hemostasis. Scheduled to follow-up on the . Patient is currently stable for discharge. (ESTELLA SAWANT) Impression Primary Impression: Recurrent epistaxis Disposition: HOME, SELF-CARE Condition: Stable Departure-Patient Inst. Decision time for Depature: 16:55 (ESTELLA SAWANT) Referrals: SHERRY KESSLER APRN (PCP) Primary Care Physician HUGO ABARCA MD (Family) Primary Care Physician CHAZ LANDRY MD Patient Instructions: Nosebleeds DEVON PRATHER MD Nov 30, 2021 12:40 ESTELLA SAWANT Nov 30, 2021 15:32
[2021-11-30] MEDS ORDERED: PHENYLEPHRINE 0.25% NASAL SPR (NEO-SYNEPHRINE) 15 ML NS STA (12:41)
[2021-11-30] MEDS ORDERED: COCAINE HCL 4% 2 ML SYR TOP STA (13:21)
[2021-11-30 15:19] VITALS: BP 125/65
[2021-11-30 15:44] LABS: BASOPHILS % (AUTO) 0 % (0-10); EOSINOPHILS # (AUTO) 0.1 10^3/uL (0.0-0.3); EOSINOPHILS % (AUTO) 1 % (0-10); HEMATOCRIT 44 % (40-54); HEMOGLOBIN 14.5 g/dL (13.3-17.7); LYMPHOCYTES # (AUTO) 1.3 X 10^3 (1.0-4.0); LYMPHOCYTES % (AUTO) 11 % (12-44); MEAN CORPUSCULAR HEMOGLOBIN 30 pg (25-34); MEAN CORPUSCULAR HGB CONC 33 g/dL (32-36); MEAN CORPUSCULAR VOLUME 90 fL (80-99); MEAN PLATELET VOLUME 9.4 fL (9.0-12.2); MONOCYTES # (AUTO) 1.3 X 10^3 (0.0-1.0); MONOCYTES % (AUTO) 11 % (0-12); NEUTROPHILS # (AUTO) 8.8 X 10^3 (1.8-7.8); NEUTROPHILS % (AUTO) 77 % (42-75); PLATELET COUNT 292 10^3/uL (130-400); WHITE BLOOD COUNT 11.5 10^3/uL (4.3-11.0)
[2021-11-30 15:53] LABS: ALBUMIN 3.9 GM/DL (3.2-4.5); POTASSIUM 4.4 MMOL/L (3.6-5.0)
[2021-11-30 15:55] LABS: CALCIUM 9.6 MG/DL (8.5-10.1); INR 1.4 (0.8-1.4); PROTHROMBIN TIME PATIENT 17.6 SEC (12.2-14.7)
[2021-11-30 15:56] LABS: TOTAL PROTEIN 7.4 GM/DL (6.4-8.2)
[2021-11-30 15:58] LABS: BILIRUBIN,TOTAL 1.1 MG/DL (0.1-1.0)
[2021-11-30 15:59] LABS: CREATININE SERUM 0.89 MG/DL (0.60-1.30)
[2021-11-30] MEDS ORDERED: LIDOCAINE/EPI 1%-1:100,000 (XYLOCAINE) 10 ML ONE (16:21)
[2021-11-30] MEDS ORDERED: COCAINE HCL 4% 2 ML SYR ONE (16:21)
[2021-11-30] MEDS ORDERED: COCAINE HCL 4% 2 ML SYR TOP ONE (17:00)
[2021-11-30] MEDS ORDERED: LIDOCAINE/EPI 1%-1:100,000 (XYLOCAINE) 10 ML INJ ONE (17:00)
== END 2021-11-30 17:18 | disposition home or self-care (01) ==
LOC: EDUNIT# 11:49 → ER FS 11:51 → ER 17:18
DX: R04.0 Epistaxis (principal); E11.9 Type 2 diabetes mellitus without complications; J44.9 Chronic obstructive pulmonary disease, unspecified; I48.91 Unspecified atrial fibrillation; Z99.81 Dependence on supplemental oxygen; Z79.4 Long term (current) use of insulin; Z79.01 Long term (current) use of anticoagulants
CPT/HCPCS: 36415; 80053; 85025; 85610; 85730

== ENCOUNTER → 2021-12-16 | Outpatient (CLI) | payer MEDICARE, OTHER ==
[2021-12-16 12:00] LABS: BASOPHILS # (AUTO) 0.1 10^3/uL (0.0-0.1); BASOPHILS % (AUTO) 1 % (0-10); EOSINOPHILS # (AUTO) 0.1 10^3/uL (0.0-0.3); EOSINOPHILS % (AUTO) 1 % (0-10); HEMATOCRIT 43 % (40-54); HEMOGLOBIN 14.1 g/dL (13.3-17.7); LYMPHOCYTES # (AUTO) 1.4 10^3/uL (1.0-4.0); LYMPHOCYTES % (AUTO) 15 % (12-44); MEAN CORPUSCULAR HEMOGLOBIN 29 pg (25-34); MEAN CORPUSCULAR HGB CONC 33 g/dL (32-36); MEAN CORPUSCULAR VOLUME 89 fL (80-99); MEAN PLATELET VOLUME 9.5 fL (9.0-12.2); MONOCYTES # (AUTO) 1.1 10^3/uL (0.0-1.0); MONOCYTES % (AUTO) 12 % (0-12); NEUTROPHILS # (AUTO) 6.7 10^3/uL (1.8-7.8); NEUTROPHILS % (AUTO) 71 % (42-75); PLATELET COUNT 309 10^3/uL (130-400); WHITE BLOOD COUNT 9.4 10^3/uL (4.3-11.0)
[2021-12-16 12:50] LABS: ALBUMIN 4.1 GM/DL (3.2-4.5); CALCIUM 9.6 MG/DL (8.5-10.1); CREATININE SERUM 0.87 MG/DL (0.60-1.30); POTASSIUM 4.6 MMOL/L (3.6-5.0)
[2021-12-16 14:36] LABS: PHOSPHORUS 3.9 MG/DL (2.3-4.7); URIC ACID 9.9 MG/DL (2.6-7.2)
== END ==
LOC: LAB FS 11:19
PROVIDERS: ATTEND Internal Medicine
DX: R60.0 Localized edema (principal)
CPT/HCPCS: 36415; 80069; 83735; 84300; 84443; 84550; 85025

== ENCOUNTER 2022-01-29 15:45 | Emergency (ER) | payer MEDICARE ==
[~2022-01-29] VITALS: Ht 172 cm; Wt 91.1 kg
[2022-01-29] MEDS ORDERED: LIDOCAINE 1% INJ 20 ML VIAL INJ ONE (16:15)
[2022-01-29 17:22] LABS: BASOPHILS # (AUTO) 0.1 10^3/uL (0.0-0.1); BASOPHILS % (AUTO) 0 % (0-10); EOSINOPHILS # (AUTO) 0.1 10^3/uL (0.0-0.3); EOSINOPHILS % (AUTO) 1 % (0-10); HEMATOCRIT 44 % (40-54); LYMPHOCYTES # (AUTO) 1.3 10^3/uL (1.0-4.0); LYMPHOCYTES % (AUTO) 10 % (12-44); MEAN CORPUSCULAR HEMOGLOBIN 29 pg (25-34); MEAN CORPUSCULAR HGB CONC 32 g/dL (32-36); MEAN CORPUSCULAR VOLUME 89 fL (80-99); MEAN PLATELET VOLUME 9.6 fL (9.0-12.2); MONOCYTES # (AUTO) 1.3 10^3/uL (0.0-1.0); MONOCYTES % (AUTO) 10 % (0-12); NEUTROPHILS # (AUTO) 10.7 10^3/uL (1.8-7.8); NEUTROPHILS % (AUTO) 79 % (42-75); PLATELET COUNT 286 10^3/uL (130-400); WHITE BLOOD COUNT 13.6 10^3/uL (4.3-11.0)
[2022-01-29 17:32] LABS: POTASSIUM 4.4 MMOL/L (3.6-5.0)
[2022-01-29 17:33] LABS: CALCIUM 9.8 MG/DL (8.5-10.1)
[2022-01-29 17:38] LABS: CREATININE SERUM 0.9 MG/DL (0.60-1.30)
[2022-01-29 17:40] LABS: URIC ACID 9.1 MG/DL (2.6-7.2)
[2022-01-29] MEDS ORDERED: DOXYCYCLINE 100 MG (VIBRAMYCIN) TABLET PO STA (17:45)
[2022-01-29] MEDS ORDERED: CEPHALEXIN 250 MG (KEFLEX) CAP PO STA (17:45)
[2022-01-29] MEDS ORDERED: COLCHICINE 0.6 MG (COLCRYS) TABLET PO ONE (17:45)
[2022-01-29] MEDS ORDERED: DOXY100T2 PO (18:01)
[2022-01-29] MEDS ORDERED: CEPH500T PO (18:01)
--- NOTE | 2022-01-29 18:01 | ED Upper Extremity ---
General Chief Complaint: Upper Extremity Stated Complaint: R ELBOW RED/SWELLING Nursing Triage Note: pt presents to ed via wc from home with complaints of r elbow swelling/pain x 1 month, but worse x 2days. pt was seen in [facility] today and told to come to the ED. Source: patient Exam Limitations: no limitations Allergies and Home Medications Allergies Coded Allergies: No Known Allergies (Unverified Allergy, Unknown, 07/30/18) Patient Home Medication List Albuterol Sulfate (Albuterol Sulfate) 2.5 Mg/0.5 Ml Vial.neb, 2.5 MG INH Q6H, (Reported) Entered as Reported by: Ame Angeles on 08/25/21 0838 Apixaban (Eliquis) 5 Mg Tablet, 5 MG PO BID, (Reported) Entered as Reported by: KYLE MCCLELLAND on 06/07/21 1520 Ascorbate Calcium (Vitamin C) 500 Mg Tablet, 500 MG PO BID, (Reported) Entered as Reported by: KYLE MCCLELLAND on 06/07/21 1520 Budesonide/Formoterol Fumarate (Symbicort 160-4.5 Mcg Inhaler) 10.2 Gm Hfa.aer.ad, 2 PUFF IH BID, (Reported) Entered as Reported by: Ame Angeles on 08/25/21 0838 Cholecalciferol (Vitamin D3) (Vitamin D3) 25 Mcg Capsule, 25 MCG PO DAILY, (Reported) Entered as Reported by: KYLE MCCLELLAND on 06/07/21 1520 Cinnamon Bark (Cinnamon) 500 Mg Capsule, 500 MG PO BID, (Reported) Entered as Reported by: KYLE MCCLELLAND on 06/07/21 1520 Diltiazem HCl (Diltiazem 24Hr ER) 240 Mg Cap.er.24h, 240 MG PO DAILY@0900 Prescribed by: ESTEFANIA GONZALEZ on 06/13/21 1058 Fluticasone Propion/Salmeterol (Wixela 500-50 Inhub) 1 Each Blst.w.dev, 1 EACH IH BID, (Reported) Entered as Reported by: KYLE MCCLELLAND on 06/07/21 1520 Furosemide (Lasix) 40 Mg Tablet, 40 MG PO DAILY Prescribed by: ESTEFANIA GONZALEZ on 06/13/21 1058 Insulin Detemir (Levemir Flextouch) 100 Unit/1 Ml Insuln.pen, 30 UNIT SQ HS, (Reported) Entered as Reported by: KYLE MCCLELLAND on 06/07/21 152 Montelukast Sodium (Montelukast Sodium) 10 Mg Tablet, 10 MG PO HS, (Reported) Entered as Reported by: KYLE MCCLELLAND on 06/07/21 152 Potassium Chloride (Potassium Chloride) 10 Meq Capsule.er, 10 MEQ PO Q48H Prescribed by: ESTEFANIA GONZALEZ on 06/13/21 1058 Psyllium Husk (Metamucil) 660 Gm Powder, 660 GM PO BID PRN, (Reported) Entered as Reported by: Ame Angeles on 08/25/21 08 Sodium Chloride ([place] Saline) 50 Ml [place], 1 SPRAY NS QID PRN for DRY NOSE, (Reported) Entered as Reported by: KYLE MCCLELLAND on 06/07/21 152 Sodium Chloride/Aloe Vera ([place] Saline Nasal Gel) 14.1 Gm Gel..gram., 1 APPLIC NS TID PRN for DRY NOSE, (Reported) Entered as Reported by: KYLE MCCLELLAND on 06/07/21 152 Tiotropium [place] (Spiriva Respimat 2.5MCG/ACTUATION) 4 Gm Mist.inhal, 2 PUFF IH DAILY, (Reported) Entered as Reported by: KYLE MCCLELLAND on 06/07/21 152 Vit C/E/Zn/Coppr/Lutein/Zeaxan (Preservision Areds 2 Softgel) 1 Each Capsule, 2 EACH PO DAILY, (Reported) Entered as Reported by: KYLE MCCLELLAND on 06/07/21 152 Vit C/E/Zn/Coppr/Lutein/Zeaxan (Preservision Areds 2 Softgel) 1 Each Capsule, 1 EACH PO DAILY, (Reported) Entered as Reported by: Ame Angeles on 08/25/21 0838 Past Pjfzdok-Ugsfbt-Icansu Hx Patient Social History Tobacco Use?: No Smoking Status: Former Smoker Substance use?: No Alcohol Use?: No Pt feels they are or have been: No Immunizations Up To Date First/Initial COVID19 Vaccinat: 06/12/20 Second COVID19 Vaccination Bala: 07/16/20 Third COVID19 Vaccination Date: 06/12/20 Seasonal Allergies Seasonal Allergies: No Past Medical History Surgery/Hospitalization HX: Hypoxia, COPD with abn PFT's, Cardiomegaly, Chronic SOA, A Fib, HxBradycardiawith syncope, Recurrent Epistaxis Surgeries: Yes (bilateral knee, inguinal hernia (left)) Adenoidectomy Respiratory: Yes COPD Cardiac: Yes Atrial Fibrillation, High Cholesterol, Hypertension, Syncope Neurological: No Vertigo Genitourinary: No Gastrointestinal: No Hiatal Hernia Musculoskeletal: No Endocrine: No Diabetes, Insulin dep HEENT: No Macular Degeneration Cancer: No Skin Psychosocial: No Blood Disorders: No Family Medical History Cancer, Other Conditions/Hx Physical Exam Vital Signs Vital Signs - First Documented 01/29/22 15:55 Temp 36.0 Pulse 76 Resp 18 B/P (MAP) 137/73 (94) Pulse Ox 90 O2 Delivery Nasal Cannula O2 Flow Rate 10.00 Capillary Refill : Less Than 3 Seconds Height, Weight, BMI Height: 5'8.00" Weight: 223lbs. 0.8oz. 101.697132gr; 30.00 BMI Method:Stated Progress/Results/Core Measures Results/Orders Lab Results Laboratory Tests Test 01/29/22 17:15 Range/Units White Blood Count 13.6 H 4.3-11.0 10^3/uL Red Blood Count 4.88 4.30-5.52 10^6/uL Hemoglobin 14.0 13.3-17.7 g/dL Hematocrit 44 40-54 % Mean Corpuscular Volume 89 80-99 fL Mean Corpuscular Hemoglobin 29 25-34 pg Mean Corpuscular Hemoglobin Concent 32 32-36 g/dL Red Cell Distribution Width 17.2 H 10.0-14.5 % Platelet Count 286 130-400 10^3/uL Mean Platelet Volume 9.6 9.0-12.2 fL Immature Granulocyte % (Auto) 0 % Neutrophils (%) (Auto) 79 H 42-75 % Lymphocytes (%) (Auto) 10 L 12-44 % Monocytes (%) (Auto) 10 0-12 % Eosinophils (%) (Auto) 1 0-10 % Basophils (%) (Auto) 0 0-10 % Neutrophils # (Auto) 10.7 H 1.8-7.8 10^3/uL Lymphocytes # (Auto) 1.3 1.0-4.0 10^3/uL Monocytes # (Auto) 1.3 H 0.0-1.0 10^3/uL Eosinophils # (Auto) 0.1 0.0-0.3 10^3/uL Basophils # (Auto) 0.1 0.0-0.1 10^3/uL Immature Granulocyte # (Auto) 0.1 0.0-0.1 10^3/uL Sodium Level 137 135-145 MMOL/L Potassium Level 4.4 3.6-5.0 MMOL/L Chloride Level 99 98-107 MMOL/L Carbon Dioxide Level 24 21-32 MMOL/L Anion Gap 14 5-14 MMOL/L Blood Urea Nitrogen 21 H 7-18 MG/DL Creatinine 0.90 0.60-1.30 MG/DL Estimat Glomerular Filtration Rate 84 BUN/Creatinine Ratio 23 Glucose Level 119 H 70-105 MG/DL Uric Acid 9.1 H 2.6-7.2 MG/DL Calcium Level 9.8 8.5-10.1 MG/DL C-Reactive Protein High Sensitivity 1.98 H 0.00-0.50 MG/DL My Orders Orders - SHANTANU DENTON MD Lidocaine 1% Inj 20 Ml (Xylocaine 1% Inj (01/29/22 16:15) Hs C Reactive Protein (01/29/22 17:09) Basic Metabolic Panel (01/29/22 17:09) Uric Acid (01/29/22 17:09) Cbc With Automated Diff (01/29/22 17:09) Cephalexin Capsule (Keflex Capsule) (01/29/22 17:45) Colchicine Tablet (Colcrys Tablet) (01/29/22 17:45) Doxycycline Hyclate Tablet (Vibramycin T (01/29/22 17:45) Rx-Hydrocodone/Apap 5-325 Mg (Rx-Vicodin (01/29/22 18:00) Medications Given in ED Current Medications Medications Dose Ordered Sig/Gabriel Route Start Time Stop Time Status Last Admin Dose Admin Lidocaine HCl 20 ml ONCE ONCE INJ 01/29/22 16:15 01/29/22 16:16 DC 01/29/22 16:40 20 ML Vital Signs/I&O 01/29/22 15:55 Temp 36.0 Pulse 76 Resp 18 B/P (MAP) 137/73 (94) Pulse Ox 90 O2 Delivery Nasal Cannula O2 Flow Rate 10.00 Blood Pressure Mean: 94 Departure Impression Primary Impression: Olecranon bursitis, right elbow Additional Impression: Elevated uric acid in blood Disposition: 01 HOME, SELF-CARE Condition: Improved Departure-Patient Inst. Decision time for Depature: 17:57 Referrals: NO,LOCAL PHYSICIAN (PCP) Primary Care Physician SHERRY KESSLER APRN (Family) Primary Care Physician Patient Instructions: Olecranon Bursitis Add. Discharge Instructions: You appear to have an olecranon bursitis (inflammation of the bursa sac over the elbow). This may be complicated by infection and/or gout. Your uric acid level was high suggesting you may have gout. If the colchicine treatment you received in the ER results and significant improvement in pain in the next 1 to 2 hours, gout is likely a significant contributing factor to the pain and inflammation. You may discuss further gout treatment with your primary care provider tomorrow. If colchicine had no impact on your pain, infection is more likely. Complete the entire course of antibiotics as prescribed. For mild pain you may take Tylenol (acetaminophen) up to 1000 mg every 6 hours. For more intense pain, take hydrocodone 0.5 to 1 tablet every 4 hours as needed. This medication may cause drowsiness and constipation. Use with caution. You may wish to take a stool softener such as Colace while on hydrocodone to prevent constipation. Follow-up with your primary care provider later this week for repeat examinat ion. Try to avoid resting or bumping your elbow on solid surfaces. When resting your elbow, placed on a soft surface such as a pillow. Compressive wrapping such as the one placed while you at work in the ER may also be helpful Return to care if you have worsening symptoms despite following these instructions. All discharge instructions reviewed with patient and/or family. Voiced understanding. Scripts Doxycycline Hyclate (Doxycycline Hyclate) 100 Mg Tablet 100 MG PO BID, #14 TAB 0 Refills Prov: SHANTANU DENTON MD 01/29/22 Cephalexin (Cephalexin) 500 Mg Tablet 500 MG PO QID, #27 TAB 0 Refills Prov: SHANTANU DENTON MD 01/29/22 Copy Copies To 1: KERA MACKAY MD, JOSHUA T MD Jan 29, 2022 18:01
[2022-01-29 18:33] VITALS: BP 132/75
== END 2022-01-29 18:32 | disposition home or self-care (01) ==
LOC: EDUNIT# 15:45 → ER 15:47
DX: M70.21 Olecranon bursitis, right elbow (principal); E79.0 Hyperuricemia without signs of inflammatory arthritis and tophaceous disease; Z87.891 Personal history of nicotine dependence
CPT/HCPCS: 36415; 80048; 84550; 85025; 86141; 99283

== ENCOUNTER 2022-03-17 20:23 | Emergency (ER) | payer MEDICARE ==
[~2022-03-17] VITALS: Ht 175 cm; Wt 92.0 kg
[~2022-03-17 20:23] MED LIST changes: +CEPH500T PO; +DOXY100T2 PO
[2022-03-17 20:25] VITALS: BP 127/72
--- NOTE | 2022-03-17 20:40 | ED Cardiac General ---
History of Present Illness General Stated Complaint: CHEST PAIN Source: patient, EMS Exam Limitations: no limitations History of Present Illness Date Seen by Provider: Mar 17, 2022 Time Seen by Provider: 20:28 Initial Comments 86-year-old male with past medical history of chronic respiratory failure on between 8 to 10 L oxygen at all times, COPD, CHF, and chronic A. fib on Eliquis coming in via EMS from retirement due to chest pain. He says has been happening off and on for couple weeks, but its been constant all day today. The pain goes down his left arm with some tingling. His shortness of breath is at his baseline. Denies any fever, new cough, abdominal pain, focal weakness to her true numbness, headache, vision changes, or any other concerns. EMS gave him 324 mg of aspirin. They state his oxygen was on 7 L with a saturation of 90%. Heart rate was in the 80s for them in A. fib. Allergies and Home Medications Allergies Coded Allergies: No Known Allergies (Unverified Allergy, Unknown, 07/30/18) Patient Home Medication List Home Medication List Reviewed: Yes Albuterol Sulfate (Albuterol Sulfate) 2.5 Mg/0.5 Ml Vial.neb, 2.5 MG INH Q6H, (Reported) Entered as Reported by: Ame Angeles on 08/25/21 0838 Apixaban (Eliquis) 5 Mg Tablet, 5 MG PO BID, (Reported) Entered as Reported by: KYLE MCCLELLAND on 06/07/21 1520 Ascorbate Calcium (Vitamin C) 500 Mg Tablet, 500 MG PO BID, (Reported) Entered as Reported by: KYLE MCCLELLAND on 06/07/21 1520 Budesonide/Formoterol Fumarate (Symbicort 160-4.5 Mcg Inhaler) 10.2 Gm Hfa.aer.ad, 2 PUFF IH BID, (Reported) Entered as Reported by: Ame Angeles on 08/25/21 0838 Cephalexin (Cephalexin) 500 Mg Tablet, 500 MG PO QID Prescribed by: SHANTANU TOSCANO on 01/29/22 1801 Cholecalciferol (Vitamin D3) (Vitamin D3) 25 Mcg Capsule, 25 MCG PO DAILY, (Reported) Entered as Reported by: KYLE MCCLELLAND on 06/07/21 1520 Cinnamon Bark (Cinnamon) 500 Mg Capsule, 500 MG PO BID, (Reported) Entered as Reported by: KYLE MCCLELLAND on 06/07/21 1520 Diltiazem HCl (Diltiazem 24Hr ER) 240 Mg Cap.er.24h, 240 MG PO DAILY@0900 Prescribed by: ESTEFANIA GONZALEZ on 06/13/21 1058 Doxycycline Hyclate (Doxycycline Hyclate) 100 Mg Tablet, 100 MG PO BID Prescribed by: SHANTANU TOSCANO on 01/29/22 1801 Fluticasone Propion/Salmeterol (Wixela 500-50 Inhub) 1 Each Blst.w.dev, 1 EACH IH BID, (Reported) Entered as Reported by: KYLE MCCLELLAND on 06/07/21 152 Furosemide (Lasix) 40 Mg Tablet, 40 MG PO DAILY Prescribed by: ESTEFANIA GONZALEZ on 06/13/21 1058 Insulin Detemir (Levemir Flextouch) 100 Unit/1 Ml Insuln.pen, 30 UNIT SQ HS, (Reported) Entered as Reported by: KYLE MCCLELLAND on 06/07/21 152 Montelukast Sodium (Montelukast Sodium) 10 Mg Tablet, 10 MG PO HS, (Reported) Entered as Reported by: KYLE MCCLELLAND on 06/07/21 152 Potassium Chloride (Potassium Chloride) 10 Meq Capsule.er, 10 MEQ PO Q48H Prescribed by: ESTEFANIA GONZALEZ on 06/13/21 1058 Psyllium Husk (Metamucil) 660 Gm Powder, 660 GM PO BID PRN, (Reported) Entered as Reported by: Ame Angeles on 08/25/21 0838 Sodium Chloride ([place] Saline) 50 Ml [place], 1 SPRAY NS QID PRN for DRY NOSE, (Reported) Entered as Reported by: KYLE MCCLELLAND on 06/07/21 1520 Sodium Chloride/Aloe Vera ([place] Saline Nasal Gel) 14.1 Gm Gel..gram., 1 APPLIC NS TID PRN for DRY NOSE, (Reported) Entered as Reported by: KYLE MCCLELLAND on 06/07/21 152 Tiotropium [place] (Spiriva Respimat 2.5MCG/ACTUATION) 4 Gm Mist.inhal, 2 PUFF IH DAILY, (Reported) Entered as Reported by: KYLE MCCLELLAND on 06/07/21 1520 Vit C/E/Zn/Coppr/Lutein/Zeaxan (Preservision Areds 2 Softgel) 1 Each Capsule, 2 EACH PO DAILY, (Reported) Entered as Reported by: KYLE MCCLELLAND on 06/07/21 1520 Vit C/E/Zn/Coppr/Lutein/Zeaxan (Preservision Areds 2 Softgel) 1 Each Capsule, 1 EACH PO DAILY, (Reported) Entered as Reported by: Ame Angeles on 08/25/21 0838 Review of Systems Review of Systems Constitutional: No fever EENTM: No Symptoms Reported Respiratory: See HPI Cardiovascular: Chest Pain Gastrointestinal: No Symptoms Reported Genitourinary: No Symptoms Reported Musculoskeletal: no symptoms reported Skin: no symptoms reported Psychiatric/Neurological: Tingling Endocrine: No Symptoms Reported Hematologic/Lymphatic: No Symptoms Reported All Other Systems Reviewed Negative Unless Noted: Yes Past Ggzfyrc-Bziwid-Gyozzc Hx Patient Social History Substance use?: No Immunizations Up To Date First/Initial COVID19 Vaccinat: 06/12/20 Second COVID19 Vaccination Bala: 07/16/20 Third COVID19 Vaccination Date: 06/12/20 Seasonal Allergies Seasonal Allergies: No Past Medical History Surgery/Hospitalization HX: Hypoxia, COPD with abn PFT's, Cardiomegaly, Chronic SOA, A Fib, HxBradycardiawith syncope, Recurrent Epistaxis Surgeries: Yes (bilateral knee, inguinal hernia (left)) Adenoidectomy Respiratory: Yes COPD Cardiac: Yes Atrial Fibrillation, High Cholesterol, Hypertension, Syncope Neurological: No Vertigo Genitourinary: No Gastrointestinal: No Hiatal Hernia Musculoskeletal: No Endocrine: Yes Diabetes, Insulin dep HEENT: Yes Macular Degeneration Cancer: No Skin Psychosocial: No Blood Disorders: No Family Medical History Cancer, Other Conditions/Hx Physical Exam Vital Signs Vital Signs - First Documented 03/17/22 03/17/22 20:25 20:35 Temp 36.0 Pulse 90 Resp 22 B/P (MAP) 127/72 (90) Pulse Ox 89 O2 Delivery Nasal Cannula O2 Flow Rate 9.00 FiO2 89 Capillary Refill : Height, Weight, BMI Height: 5'8.00" Weight: 223lbs. 0.8oz. 101.258807op; 30.00 BMI Method:Stated General Appearance: No Apparent Distress, WD/WN HEENT: PERRL/EOMI, Normal ENT Inspection, Pharynx Normal Neck: Full Range of Motion, Normal Inspection, Non Tender, Supple Respiratory: Chest Non Tender, No Respiratory Distress, Crackles Cardiovascular: Normal Peripheral Pulses, Irregularly Irregular Gastrointestinal: Normal Bowel Sounds, Non Tender, Soft; No Distended, No Guarding Extremity: Normal Capillary Refill, Normal Inspection, Normal Range of Motion, Non Tender, No Calf Tenderness, No Pedal Edema Neurologic/Psychiatric: Alert, Oriented x3, No Motor/Sensory Deficits, Normal Mood/Affect, Other Skin: Normal Color, Warm/Dry Lymphatic: No Adenopathy Progress/Results/Core Measures Results/Orders Lab Results Laboratory Tests Test 03/17/22 20:36 Range/Units White Blood Count 11.9 H 4.3-11.0 10^3/uL Red Blood Count 4.58 4.30-5.52 10^6/uL Hemoglobin 13.4 13.3-17.7 g/dL Hematocrit 41 40-54 % Mean Corpuscular Volume 88 80-99 fL Mean Corpuscular Hemoglobin 29 25-34 pg Mean Corpuscular Hemoglobin Concent 33 32-36 g/dL Red Cell Distribution Width 18.1 H 10.0-14.5 % Platelet Count 292 130-400 10^3/uL Mean Platelet Volume 9.9 9.0-12.2 fL Immature Granulocyte % (Auto) 1 % Neutrophils (%) (Auto) 75 42-75 % Lymphocytes (%) (Auto) 13 12-44 % Monocytes (%) (Auto) 10 0-12 % Eosinophils (%) (Auto) 1 0-10 % Basophils (%) (Auto) 1 0-10 % Neutrophils # (Auto) 9.0 H 1.8-7.8 10^3/uL Lymphocytes # (Auto) 1.5 1.0-4.0 10^3/uL Monocytes # (Auto) 1.2 H 0.0-1.0 10^3/uL Eosinophils # (Auto) 0.1 0.0-0.3 10^3/uL Basophils # (Auto) 0.1 0.0-0.1 10^3/uL Immature Granulocyte # (Auto) 0.1 0.0-0.1 10^3/uL Prothrombin Time 15.2 H 12.2-14.7 SEC INR Comment 1.2 0.8-1.4 Activated Partial Thromboplast Time 34 24-35 SEC Sodium Level 136 135-145 MMOL/L Potassium Level 4.6 3.6-5.0 MMOL/L Chloride Level 93 L 98-107 MMOL/L Carbon Dioxide Level 28 21-32 MMOL/L Anion Gap 15 H 5-14 MMOL/L Blood Urea Nitrogen 26 H 7-18 MG/DL Creatinine 0.92 0.60-1.30 MG/DL Estimat Glomerular Filtration Rate 82 BUN/Creatinine Ratio 28 Glucose Level 159 H 70-105 MG/DL Calcium Level 9.6 8.5-10.1 MG/DL Corrected Calcium 9.6 8.5-10.1 MG/DL Magnesium Level 1.7 1.6-2.4 MG/DL Total Bilirubin 0.4 0.1-1.0 MG/DL Aspartate Amino Transf (AST/SGOT) 24 5-34 U/L Alanine Aminotransferase (ALT/SGPT) 28 0-55 U/L Alkaline Phosphatase 85 40-136 U/L Troponin I < 0.30 <0.30 NG/ML Pro-B-Type Natriuretic Peptide 4041.0 H <450.0 PG/ML Total Protein 7.4 6.4-8.2 GM/DL Albumin 4.0 3.2-4.5 GM/DL My Orders Orders - ESTELLA CARRENO MD Cbc With Automated Diff (03/17/22 20:36) Magnesium (03/17/22 20:36) Chest 1 View Ap/Pa Only (03/17/22 20:36) Ekg Tracing (03/17/22 20:36) Comprehensive Metabolic Panel (03/17/22 20:36) Protime With Inr (03/17/22 20:36) Partial Thromboplastin Time (03/17/22 20:36) O2 (03/17/22 20:36) Monitor-Rhythm Ecg Trace Only (03/17/22 20:36) Ed Iv/Invasive Line Start (03/17/22 20:36) Troponin I Fs (03/17/22 20:36) Probnp Fs (03/17/22 20:36) Morphine Injection (Morphine Injection (03/17/22 20:43) Acetaminophen Tablet (Tylenol Tablet) (03/17/22 20:45) Furosemide Injection (Lasix Injection) (03/17/22 21:30) Furosemide Injection (Lasix Injection) (03/17/22 21:20) Medications Given in ED Current Medications Medications Dose Ordered Sig/Gabriel Route Start Time Stop Time Status Last Admin Dose Admin Acetaminophen 1,000 mg ONCE ONCE PO 03/17/22 20:45 03/17/22 20:46 DC 03/17/22 21:32 1,000 MG Furosemide 80 mg ONCE ONCE IVP 03/17/22 21:30 03/17/22 21:31 DC 03/17/22 21:34 80 MG Vital Signs/I&O 03/17/22 03/17/22 20:25 20:35 Temp 36.0 Pulse 90 Resp 22 B/P (MAP) 127/72 (90) Pulse Ox 89 O2 Delivery Nasal Cannula Nasal Cannula O2 Flow Rate 9.00 10.00 FiO2 89 Progress Progress Note : Progress Note 86-year-old male with above history coming in due to chest pain and left arm pain with tingling. Patient is chronically hypoxic and respiratory failure. Any movements he desaturates to 70s or 80s, but he goes back up to the 90s with some deep breaths. He says this has been like this for some time and is chronic. Given that the chest pain has been constant almost for couple weeks, it is unlikely to be ACS related. EKG appears similar to prior with no acute ischemic changes. Chest x-ray pulmonary edema, appears similar to prior as well. He was given IV Lasix given his BNP was also elevated, and its possible he is not responding as much to his oral Bumex. Given Tylenol and morphine for pain in his shoulder. It seems more musculoskeletal in nature. Even the tingling is in an ulnar nerve distribution. Although he sits on his couch and keeps his left elbow rested on the armrest. It is possible this is an ulnar nerve issue as far as the tingling. Overall, he is chronically very ill and clearly end-stage with his respiratory failure. I do not see any acute findings that would require admission today. He can follow-up with his PCP as an outpatient. Initial ECG Impression Date: Mar 17, 2022 Initial ECG Impression Time: 20:33 Initial ECG Rate: 93 Initial ECG Rhythm: A Fib/Flutter Comment Narrow QRS, normal axis, T wave inversions inferiorly and laterally, no significant ST elevation Diagnostic Imaging Diagonstic Imaging: Xray (chest) Comments NAME: CORKY BROWNING [facility] REC#: [id number] PT STATUS: REG ER : 1935 PHYSICIAN: ESTELLA CARRENO MD ADMIT DATE: 03/17/22/ER FS Draft Date of Exam:03/17/22 CHEST 1 VIEW AP/PA ONLY EXAMINATION: Chest 1 view. HISTORY: Chest pain. COMPARISON: None available. FINDINGS: There is moderate edema. Heart is enlarged. No pleural effusion or pneumothorax. IMPRESSION: Moderate edema and enlarged heart. Dictated on workstation # [id number] Dict: 03/17/[id number] Trans: 03/17/[id number] PJ [id number] Interpreted by: MOUSTAPHA DE LOS SANTOS MD Electronically signed by: Departure Impression Primary Impression: Ulnar nerve abnormality Qualified Codes: G56.22 - Lesion of ulnar nerve, left upper limb Additional Impression: Chest pain Qualified Codes: R07.82 - Intercostal pain Disposition: 01 HOME, SELF-CARE Condition: Stable Departure-Patient Inst. Decision time for Depature: 21:50 Referrals: NO,LOCAL PHYSICIAN (PCP) Primary Care Physician SHERRY KESSLER APRN (Family) Primary Care Physician NASRIN FLORES Patient Instructions: Cubital Tunnel Syndrome (DC), Chest Pain, Adult ED Add. Discharge Instructions: It seems like your left arm numbness on exam is related to your ulnar nerve. This typically develops issues at the level of the elbow, or at the shoulder and neck region. Follow-up with your regular doctor regarding this, they may want to refer you to an orthopedist for further work-up, or they may just opt to give you medicines to help deal with the pain. I recommend taking your elbow off your armrest for the majority of the day, or you can just rest her forearm on it instead and see if this helps. Scripts Tramadol HCl (Tramadol HCl) 50 Mg Tablet 50 MG PO Q6H PRN for PAIN for 5 Days, #20 TAB 0 Refills Prov: ESTELLA CARRENO MD 03/17/22 ESTELLA CARRENO MD Mar 17, 2022 20:40
[2022-03-17 20:41] LABS: BASOPHILS # (AUTO) 0.1 10^3/uL (0.0-0.1); BASOPHILS % (AUTO) 1 % (0-10); EOSINOPHILS # (AUTO) 0.1 10^3/uL (0.0-0.3); EOSINOPHILS % (AUTO) 1 % (0-10); HEMATOCRIT 41 % (40-54); HEMOGLOBIN 13.4 g/dL (13.3-17.7); LYMPHOCYTES # (AUTO) 1.5 10^3/uL (1.0-4.0); LYMPHOCYTES % (AUTO) 13 % (12-44); MEAN CORPUSCULAR HEMOGLOBIN 29 pg (25-34); MEAN CORPUSCULAR HGB CONC 33 g/dL (32-36); MEAN CORPUSCULAR VOLUME 88 fL (80-99); MEAN PLATELET VOLUME 9.9 fL (9.0-12.2); MONOCYTES # (AUTO) 1.2 10^3/uL (0.0-1.0); MONOCYTES % (AUTO) 10 % (0-12); NEUTROPHILS % (AUTO) 75 % (42-75); PLATELET COUNT 292 10^3/uL (130-400); WHITE BLOOD COUNT 11.9 10^3/uL (4.3-11.0)
[2022-03-17] MEDS ORDERED: morphine INJ 10 MG/ML 1ML (SYR OR VIAL) IVP STA (20:43)
[2022-03-17] MEDS ORDERED: ACETAMINOPHEN 500 MG TAB (TYLENOL) PO ONE (20:45)
[2022-03-17 20:52] LABS: INR 1.2 (0.8-1.4); PROTHROMBIN TIME PATIENT 15.2 SEC (12.2-14.7)
[2022-03-17 21:02] LABS: BILIRUBIN,TOTAL 0.4 MG/DL (0.1-1.0); CALCIUM 9.6 MG/DL (8.5-10.1); CREATININE SERUM 0.92 MG/DL (0.60-1.30); MAGNESIUM 1.7 MG/DL (1.6-2.4); POTASSIUM 4.6 MMOL/L (3.6-5.0); TOTAL PROTEIN 7.4 GM/DL (6.4-8.2)
[2022-03-17] MEDS ORDERED: BUMETANIDE 1 MG/4 ML (BUMEX) VIAL IV ONE (21:15)
[2022-03-17] MEDS ORDERED: FUROSEMIDE 40 MG/4 ML INJ (LASIX) ONE (21:20)
[2022-03-17] MEDS ORDERED: FUROSEMIDE 40 MG/4 ML INJ (LASIX) IVP ONE (21:30)
--- NOTE | 2022-03-17 21:39 | Diagnostic Imaging Report ---
EXAMINATION: Chest 1 view. HISTORY: Chest pain. COMPARISON: None available. FINDINGS: There is moderate edema. Heart is enlarged. No pleural effusion or pneumothorax. IMPRESSION: Moderate edema and enlarged heart. Dictated by: Dictated on workstation # [id number]
[2022-03-17] MEDS ORDERED: TRM50T PO (21:52)
== END 2022-03-17 22:05 | disposition home or self-care (01) ==
LOC: EDUNIT# 20:23 → ER FS 20:26
DX: G56.22 Lesion of ulnar nerve, left upper limb (principal); R07.9 Chest pain, unspecified; E11.9 Type 2 diabetes mellitus without complications; I48.91 Unspecified atrial fibrillation; Z79.4 Long term (current) use of insulin; Z79.01 Long term (current) use of anticoagulants
CPT/HCPCS: 36415; 71045; 80053; 83735; 83880; 84484; 85025; 85610; 85730; 93005; 93041; 96374; 96375

== ENCOUNTER → 2022-04-21 | Outpatient (CLI) | payer MEDICARE ==
[~2022-04-21] MED LIST changes: +TRM50T PO
--- NOTE | 2022-04-21 12:11 | Diagnostic Imaging Report ---
INDICATION: Pleurodynia. History of falls. 2 view chest 04/21/2022 COMPARISON: 03/17/2022. FINDINGS: Coarsened interstitial markings noted throughout both lungs. There are no superimposed infiltrates or effusions. No pneumothorax. No effusions. Heart prominent. Pulmonary vasculature unremarkable. IMPRESSION: 1. Coarsened interstitial markings similar to previous imaging consistent with chronic interstitial disease. No superimposed acute process appreciated. Dictated by: Dictated on workstation # [id number]
--- NOTE | 2022-04-21 17:18 | Diagnostic Imaging Report ---
HISTORY: Pelvic and perineal pain TECHNIQUE: Frontal views of the pelvis COMPARISON: None FINDINGS: No acute fracture or dislocation is seen in the pelvis. Alignment appears normal. There are mild degenerative changes in the hip joints bilaterally. The sacroiliac joints are patent. There is degenerative change in the lower lumbar spine. There is marked calcific atherosclerosis. IMPRESSION: 1. Mild degenerative changes with no acute osseous abnormality seen in the pelvis. Dictated by: Dictated on workstation # [id number]
== END ==
LOC: RAD FS 10:14
PROVIDERS: ATTEND Registered Nurse Emergency
DX: M16.0 Bilateral primary osteoarthritis of hip (principal); M47.816 Spondylosis without myelopathy or radiculopathy, lumbar region; R07.81 Pleurodynia; Z91.81 History of falling
CPT/HCPCS: 71046; 72170

== ENCOUNTER → 2022-04-24 | Outpatient (CLI) | payer MEDICARE, OTHER ==
[2022-04-24 18:24] LABS: BILIRUBIN,URINE NEGATIVE (NEGATIVE); CLARITY,URINE CLEAR; COLOR,URINE YELLOW; GLUCOSE, URINE (UA) NEGATIVE (NEGATIVE); KETONES,URINE NEGATIVE (NEGATIVE); LEUKOCYTE ESTERASE ,URINE NEGATIVE (NEGATIVE); NITRITE,URINE NEGATIVE (NEGATIVE); PROTEIN,URINE NEGATIVE (NEGATIVE)
[2022-04-24 18:32] LABS: BACTERIA,URINE TRACE /HPF; WBC,URINE 0-2 /HPF
== END ==
LOC: PVFS 18:06
PROVIDERS: ATTEND Registered Nurse Emergency
DX: R41.82 Altered mental status, unspecified (principal)
CPT/HCPCS: 81000

== ENCOUNTER 2022-04-29 14:48 | Observation (INO) | payer MEDICARE, OTHER ==
[~2022-04-29] VITALS: Ht 172 cm; Wt 89.3 kg
[2022-04-29 15:54] LABS: BASOPHILS % (AUTO) 0 % (0-10); EOSINOPHILS % (AUTO) 0 % (0-10); HEMATOCRIT 42 % (40-54); HEMOGLOBIN 13.7 g/dL (13.3-17.7); LYMPHOCYTES # (AUTO) 0.8 X 10^3 (1.0-4.0); LYMPHOCYTES % (AUTO) 6 % (12-44); MEAN CORPUSCULAR HEMOGLOBIN 30 pg (25-34); MEAN CORPUSCULAR HGB CONC 33 g/dL (32-36); MEAN CORPUSCULAR VOLUME 91 fL (80-99); MEAN PLATELET VOLUME 9.8 fL (9.0-12.2); MONOCYTES # (AUTO) 1.1 X 10^3 (0.0-1.0); MONOCYTES % (AUTO) 9 % (0-12); NEUTROPHILS # (AUTO) 10.7 X 10^3 (1.8-7.8); NEUTROPHILS % (AUTO) 84 % (42-75); PLATELET COUNT 291 10^3/uL (130-400); WHITE BLOOD COUNT 12.7 10^3/uL (4.3-11.0)
--- NOTE | 2022-04-29 15:55 | Diagnostic Imaging Report ---
EXAMINATION: Chest 1 view. HISTORY: Chest pain. COMPARISON: None available. FINDINGS: Heart size is mildly enlarged with prominence of pulmonary vasculature. There are patchy interstitial opacities throughout both lungs with more focal airspace opacities within the left lung base. No pleural effusion or pneumothorax. The osseous structures are intact. IMPRESSION: Patchy interstitial airspace opacities throughout the lungs. Findings concerning for pulmonary edema or pneumonia. Dictated by: Dictated on workstation # [id number]
[2022-04-29 16:02] LABS: INR 1.5 (0.8-1.4); PROTHROMBIN TIME PATIENT 18.7 SEC (12.2-14.7)
[2022-04-29 16:08] LABS: ALBUMIN 3.9 GM/DL (3.2-4.5); CALCIUM 9.4 MG/DL (8.5-10.1); CREATININE SERUM 1.1 MG/DL (0.60-1.30); MAGNESIUM 1.6 MG/DL (1.6-2.4); POTASSIUM 3.9 MMOL/L (3.6-5.0); TOTAL PROTEIN 7.3 GM/DL (6.4-8.2)
[2022-04-29 16:27] LABS: ANISOCYTOSIS SLIGHT; BAND NEUTROPHILS 1 %; LYMPHOCYTES % (MANUAL) 5 %; MONOCYTES % (MANUAL) 4 %; NEUTROPHILS % (MANUAL) 90 %; POIKILOCYTOSIS SLIGHT
[2022-04-29] MEDS ORDERED: KCL 10 MEQ TAB (MICRO K) PO ONE (17:00)
[2022-04-29] MEDS ORDERED: ASPIRIN 81 MG CHEW (CHILDREN'S ASA) PO ONE (17:00)
[2022-04-29] MEDS ORDERED: FUROSEMIDE 40 MG/4 ML INJ (LASIX) IVP ONE (17:00)
--- NOTE | 2022-04-29 17:01 | ED General ---
General Chief Complaint: Cardiac/General Problems Stated Complaint: RETAINING FLUID/ANKLES SWELLING Nursing Triage Note: PT TO TRIAGE VIA W/C WITH C/O SWOLLEN ANKLES AND "FLUID ON THE LUNGS". PT REPORTS THIS HAPPENED 2-3 YEARS AGO. PT C/O CHEST PAIN AND AND SOB. Source of Information: Patient, Family Exam Limitations: No Limitations History of Present Illness Date Seen by Provider: Apr 29, 2022 Time Seen by Provider: 15:30 Initial Comments This 86-year-old gentleman presents to the emergency room accompanied by his daughter with complaints of worsening of his chronic chest pain and shortness of breath as well as worsening lower extremity edema. He is chronically hypoxic and runs his high flow nasal cannula anywhere from 8 to 15 L/min at home. He typically has an oxygen saturation in the mid 90s at rest but rapidly desaturates to the 70s with any amount of exertion. This was witnessed even with talking while in the exam room. Patient has mild dementia. He denies any worsening cough or fever. He has atrial fibrillation and is anticoagulated. He has history of pulmonary fibrosis and severe pulmonary hypertension. Dr. Restrepo is his senior software development engineer. Dr. Odom is his animal science instructor. Dr. لاعراقي is his international nurse in [place]. Allergies and Home Medications Allergies Coded Allergies: No Known Allergies (Unverified Allergy, Unknown, 07/30/18) Patient Home Medication List Home Medication List Reviewed: Yes Albuterol Sulfate (Albuterol Sulfate) 2.5 Mg/0.5 Ml Vial.neb, 2.5 MG INH Q6H, (Reported) Entered as Reported by: Ame Angeles on 08/25/21 0838 Apixaban (Eliquis) 5 Mg Tablet, 5 MG PO BID, (Reported) Entered as Reported by: KYLE MCCLELLAND on 06/07/21 1520 Ascorbate Calcium (Vitamin C) 500 Mg Tablet, 500 MG PO BID, (Reported) Entered as Reported by: KYLE MCCLELLAND on 06/07/21 1520 Budesonide/Formoterol Fumarate (Symbicort 160-4.5 Mcg Inhaler) 10.2 Gm Hfa.aer.ad, 2 PUFF IH BID, (Reported) Entered as Reported by: Ame Angeles on 08/25/21 0838 Cephalexin (Cephalexin) 500 Mg Tablet, 500 MG PO QID Prescribed by: SHANTANU TOSCANO on 01/29/22 180 Cholecalciferol (Vitamin D3) (Vitamin D3) 25 Mcg Capsule, 25 MCG PO DAILY, (Reported) Entered as Reported by: KYLE MCCLELLAND on 06/07/21 152 Cinnamon Bark (Cinnamon) 500 Mg Capsule, 500 MG PO BID, (Reported) Entered as Reported by: KYLE MCCLELLAND on 06/07/21 152 Diltiazem HCl (Diltiazem 24Hr ER) 240 Mg Cap.er.24h, 240 MG PO DAILY@0900 Prescribed by: ESTEFANIA GONZALEZ on 06/13/21 105 Doxycycline Hyclate (Doxycycline Hyclate) 100 Mg Tablet, 100 MG PO BID Prescribed by: SHANTANU TOSCANO on 01/29/221800 Fluticasone Propion/Salmeterol (Wixela 500-50 Inhub) 1 Each Blst.w.dev, 1 EACH IH BID, (Reported) Entered as Reported by: KYLE MCCLELLAND on 06/07/21 152 Furosemide (Lasix) 40 Mg Tablet, 40 MG PO DAILY Prescribed by: ESTEFANIA GONZALEZ on 06/13/21 105 Insulin Detemir (Levemir Flextouch) 100 Unit/1 Ml Insuln.pen, 30 UNIT SQ HS, (Reported) Entered as Reported by: KYLE MCCLELLAND on 06/07/21 152 Montelukast Sodium (Montelukast Sodium) 10 Mg Tablet, 10 MG PO HS, (Reported) Entered as Reported by: KYLE MCCLELLAND on 06/07/21 152 Potassium Chloride (Potassium Chloride) 10 Meq Capsule.er, 10 MEQ PO Q48H Prescribed by: ESTEFANIA GONZALEZ on 06/13/21 1058 Psyllium Husk (Metamucil) 660 Gm Powder, 660 GM PO BID PRN, (Reported) Entered as Reported by: Ame Angeles on 08/25/21 0838 Sodium Chloride (Duncan Saline) 50 Ml [place], 1 SPRAY NS QID PRN for DRY NOSE, (Reported) Entered as Reported by: KYLE MCCLELLAND on 06/07/21 152 Sodium Chloride/Aloe Vera (Duncan Saline Nasal Gel) 14.1 Gm Gel..gram., 1 APPLIC NS TID PRN for DRY NOSE, (Reported) Entered as Reported by: KYLE MCCLELLAND on 06/07/21 152 Tiotropium [place] (Spiriva Respimat 2.5MCG/ACTUATION) 4 Gm Mist.inhal, 2 PUFF IH DAILY, (Reported) Entered as Reported by: KYLE MCCLELLAND on 06/07/21 152 Tramadol HCl (Tramadol HCl) 50 Mg Tablet, 50 MG PO Q6H PRN for PAIN Prescribed by: ESTELLA CARRENO on 03/17/222151 Vit C/E/Zn/Coppr/Lutein/Zeaxan (Preservision Areds 2 Softgel) 1 Each Capsule, 2 EACH PO DAILY, (Reported) Entered as Reported by: KYLE MCCLELLAND on 06/07/211519 Vit C/E/Zn/Coppr/Lutein/Zeaxan (Preservision Areds 2 Softgel) 1 Each Capsule, 1 EACH PO DAILY, (Reported) Entered as Reported by: Ame Angeles on 08/25/21 0838 Review of Systems Review of Systems Constitutional: no symptoms reported EENTM: no symptoms reported Respiratory: see HPI Cardiovascular: see HPI Gastrointestinal: no symptoms reported Genitourinary: no symptoms reported Musculoskeletal: no symptoms reported Skin: no symptoms reported Psychiatric/Neurological: See HPI Hematologic/Lymphatic: No Symptoms Reported Immunological/Allergic: no symptoms reported Past Tzqtltg-Fupaex-Whwatj Hx Patient Social History Tobacco Use?: No Smoking Status: Former Smoker Smokeless Tobacco Frequency: Never a User Use of E-Cig and/or Vaping dev: No Substance use?: No Alcohol Use?: No Pt feels they are or have been: No Immunizations Up To Date First/Initial COVID19 Vaccinat: 06/12/20 Second COVID19 Vaccination Bala: 07/16/20 Third COVID19 Vaccination Date: 06/12/20 COVID19 Vaccine Assistant Media Buyer: ANTONIO Seasonal Allergies Seasonal Allergies: No Past Medical History Surgery/Hospitalization HX: Hypoxia, COPD with abn PFT's, Cardiomegaly, Chronic SOA, A Fib, HxBradycardiawith syncope, Recurrent Epistaxis Surgeries: Yes (bilateral knee, inguinal hernia (left)) Adenoidectomy Respiratory: Yes (Pulmonary hypertension, pulmonary fibrosis) COPD Cardiac: Yes (Congestive heart failure) Atrial Fibrillation, High Cholesterol, Hypertension, Syncope Neurological: Yes Dementia, Vertigo Genitourinary: No Gastrointestinal: Yes Hiatal Hernia Musculoskeletal: No Endocrine: Yes Diabetes, Insulin dep HEENT: Yes Macular Degeneration Cancer: Yes Skin Psychosocial: No Blood Disorders: No Family Medical History Cancer, Other Conditions/Hx Physical Exam Vital Signs Vital Signs - First Documented 04/29/22 14:58 Temp 36.5 Pulse 79 Resp 17 B/P (MAP) 126/72 (90) Pulse Ox 99 O2 Delivery Nasal Cannula O2 Flow Rate 8.00 Capillary Refill : Less Than 3 Seconds Height, Weight, BMI Height: 5'8.00" Weight: 223lbs. 0.8oz. 101.618098zd; 30.00 BMI Method:Stated General Appearance: WD/WN, Mild Distress HEENT: PERRL/EOMI, Normal ENT Inspection Neck: Normal Inspection Respiratory: No Respiratory Distress, Crackles (Bibasilar), Decreased Breath Sounds Cardiovascular: No Edema, No Murmur, Irregularly Irregular Gastrointestinal: Non Tender, Soft Extremity: Non Tender, Pedal Edema (Moderate to severe lower extremity pitting edema, equal bilaterally), Swelling Neurologic/Psychiatric: Alert, No Motor/Sensory Deficits, Normal Mood/Affect, Other (Mild dementia is apparent with some confused responses to questions) Skin: Normal Color, Warm/Dry Progress/Results/Core Measures Suspected Sepsis SIRS Temperature: Pulse: 79 Respiratory Rate: 17 Laboratory Tests 04/29/22 15:26: White Blood Count 12.7H Blood Pressure 126 /72 Mean: 90 Laboratory Tests 04/29/22 15:26: Creatinine 1.10, INR Comment 1.5H, Platelet Count 291, Total Bilirubin 1.0 Results/Orders Lab Results Laboratory Tests Test 04/29/22 15:26 Range/Units White Blood Count 12.7 H 4.3-11.0 10^3/uL Red Blood Count 4.62 4.30-5.52 10^6/uL Hemoglobin 13.7 13.3-17.7 g/dL Hematocrit 42 40-54 % Mean Corpuscular Volume 91 80-99 fL Mean Corpuscular Hemoglobin 30 25-34 pg Mean Corpuscular Hemoglobin Concent 33 32-36 g/dL Red Cell Distribution Width 18.9 H 10.0-14.5 % Platelet Count 291 130-400 10^3/uL Mean Platelet Volume 9.8 9.0-12.2 fL Immature Granulocyte % (Auto) 0 % Neutrophils (%) (Auto) 84 H 42-75 % Lymphocytes (%) (Auto) 6 L 12-44 % Monocytes (%) (Auto) 9 0-12 % Eosinophils (%) (Auto) 0 0-10 % Basophils (%) (Auto) 0 0-10 % Neutrophils # (Auto) 10.7 H 1.8-7.8 X 10^3 Lymphocytes # (Auto) 0.8 L 1.0-4.0 X 10^3 Monocytes # (Auto) 1.1 H 0.0-1.0 X 10^3 Eosinophils # (Auto) 0.0 0.0-0.3 10^3/uL Basophils # (Auto) 0.0 0.0-0.1 10^3/uL Immature Granulocyte # (Auto) 0.1 0.0-0.1 10^3/uL Neutrophils % (Manual) 90 % Lymphocytes % (Manual) 5 % Monocytes % (Manual) 4 % Band Neutrophils 1 % Poikilocytosis SLIGHT Anisocytosis SLIGHT Prothrombin Time 18.7 H 12.2-14.7 SEC INR Comment 1.5 H 0.8-1.4 Activated Partial Thromboplast Time 39 H 24-35 SEC Sodium Level 141 135-145 MMOL/L Potassium Level 3.9 3.6-5.0 MMOL/L Chloride Level 96 L 98-107 MMOL/L Carbon Dioxide Level 26 21-32 MMOL/L Anion Gap 19 H 5-14 MMOL/L Blood Urea Nitrogen 23 H 7-18 MG/DL Creatinine 1.10 0.60-1.30 MG/DL Estimat Glomerular Filtration Rate 66 BUN/Creatinine Ratio 21 Glucose Level 214 H 70-105 MG/DL Calcium Level 9.4 8.5-10.1 MG/DL Corrected Calcium 9.5 8.5-10.1 MG/DL Magnesium Level 1.6 1.6-2.4 MG/DL Total Bilirubin 1.0 0.1-1.0 MG/DL Aspartate Amino Transf (AST/SGOT) 16 5-34 U/L Alanine Aminotransferase (ALT/SGPT) 22 0-55 U/L Alkaline Phosphatase 99 40-136 U/L Myoglobin 68.3 10.0-92.0 NG/ML Troponin I 0.037 H <0.028 NG/ML C-Reactive Protein High Sensitivity 2.84 H 0.00-0.50 MG/DL B-Type Natriuretic Peptide 985.7 H <100.0 PG/ML Total Protein 7.3 6.4-8.2 GM/DL Albumin 3.9 3.2-4.5 GM/DL Procalcitonin 0.06 <0.10 NG/ML My Orders Orders - SHANTANU DENTON MD Cbc With Automated Diff (04/29/22 15:30) Magnesium (04/29/22 15:30) Chest 1 View, Ap/Pa Only (04/29/22 15:30) Comprehensive Metabolic Panel (04/29/22 15:30) Myoglobin Serum (04/29/22 15:30) Protime With Inr (04/29/22 15:30) Partial Thromboplastin Time (04/29/22 15:30) O2 (04/29/22 15:30) Monitor-Rhythm Ecg Trace Only (04/29/22 15:30) Lipid Panel (04/30/22 06:00) Ed Iv/Invasive Line Start (04/29/22 15:30) Bnp [place] (04/29/22 15:30) Troponin I [place] (04/29/22 15:30) Hs C Reactive Protein (04/29/22 15:30) Manual Differential (04/29/22 15:26) Furosemide Injection (Lasix Injection) (04/29/22 17:00) Potassium Chloride (Tablet) (Klor Con Ta (04/29/22 17:00) Code/Resuscitation (04/29/22 16:56) Procalcitonin (Pct) (04/29/22 16:59) Aspirin Chewable Tablet (Baby Aspirin Ch (04/29/22 17:00) Aspirin Chewable Tablet (Baby Aspirin Ch (04/29/22 17:03) Ed Admission (Communication) (04/29/22 17:42) Medications Given in ED Current Medications Medications Dose Ordered Sig/Gabriel Route Start Time Stop Time Status Last Admin Dose Admin Aspirin 324 mg ONCE ONCE PO 04/29/22 17:00 04/29/22 17:01 DC 04/29/22 17:15 324 MG Furosemide 80 mg ONCE ONCE IVP 04/29/22 17:00 04/29/22 17:01 DC 04/29/22 17:10 80 MG Potassium Chloride 20 meq ONCE ONCE PO 04/29/22 17:00 04/29/22 17:01 DC 04/29/22 17:08 20 MEQ Vital Signs/I&O 04/29/22 04/29/22 04/29/22 14:58 15:03 15:20 Temp 36.5 Pulse 79 Resp 17 B/P (MAP) 126/72 (90) Pulse Ox 99 91 O2 Delivery Nasal Cannula Nasal Cannula OxyMask O2 Flow Rate 8.00 8.00 15.00 Capillary Refill : Less Than 3 Seconds Blood Pressure Mean: 90 Progress Note : Time: 17:45 Progress Note Patient was interviewed and examined during initial assessment. I also discussed his history at length with his daughter who is also his POA for healthcare. Patient has mild dementia and mixes up some of his history. His daughter knows his history fairly well. He does appear to have increased pulmonary edema and swelling. Chest x-ray compared to a week ago shows worsening edema. Findings are likely due to edema rather than pneumonia given his exam, vitals, labs, and history. Patient requests a DNR order. He has not yet engaged with a hospice company but that topic was introduced during our encounter. Case was reviewed with Dr. Carney who recommended Lasix 80 mg IV now and daily and potassium 20 mEq orally now and daily. Given his overall severe cardiopulmonary problems and the fact that he is not a good candidate for interventions, Dr. Carney suggested no further troponin values being measured. Lasix and potassium were administered in the ER. ECG Initial ECG Impression Date: Apr 29, 2022 Initial ECG Impression Time: 15:27 Initial ECG Rate: 79 Initial ECG Rhythm: A Fib/Flutter Comment Atrial fibrillation, rate controlled, chronic. Minimal ST depression in the lateral leads is chronic and similar to prior. No acute ST elevation to suggest STEMI. Incomplete right bundle branch block. No axis deviation. Diagnostic Imaging Diagonstic Imaging: Xray Plain Films/CT/US/NM/MRI: chest Comments Chest x-ray viewed by me and compared with prior. See report below: NAME: CORKY BROWNING [facility] REC#: [id number] PT STATUS: REG ER : 1935 PHYSICIAN: SHANTANU DENTON MD ADMIT DATE: 04/29/22/ER Signed Date of Exam:04/29/22 CHEST 1 VIEW, AP/PA ONLY EXAMINATION: Chest 1 view. HISTORY: Chest pain. COMPARISON: None available. FINDINGS: Heart size is mildly enlarged with prominence of pulmonary vasculature. There are patchy interstitial opacities throughout both lungs with more focal airspace opacities within the left lung base. No pleural effusion or pneumothorax. The osseous structures are intact. IMPRESSION: Patchy interstitial airspace opacities throughout the lungs. Findings concerning for pulmonary edema or pneumonia. Dictated by: Dictated on workstation # [id number] Dict: 04/29/22 155 Trans: 04/29/221555 [facility] [id number] Interpreted by: CORKY BETH DO Electronically signed by: CORKY BETH DO 04/29/221555 Departure Communication (Admissions) Dr. Gibson Carney Impression Primary Impression: Acute and chronic respiratory failure Additional Impressions: Acute on chronic heart failure Qualified Codes: I50.9 - Heart failure, unspecified Chest pain Qualified Codes: R07.9 - Chest pain, unspecified Elevated troponin Disposition: ADMITTED INPATIENT Condition: Stable Admissions Decision to Admit Reason: Admit from ER (General) Decision to Admit/Date: Apr 29, 2022 Departure-Patient Inst. Referrals: SHERRY KESSLER APRN (PCP) Primary Care Physician KERA MACKAY MD (Family) Primary Care Physician SHANTANU DENTON MD Apr 29, 2022 17:01
[2022-04-29] MEDS ORDERED: ASPIRIN 81 MG CHEW (CHILDREN'S ASA) ONE (17:03)
[2022-04-29] MEDS ORDERED: ENOXAPARIN 40 MG/0.4 ML (LOVENOX) SYR SC SCH (19:15)
[2022-04-29] MEDS ORDERED: CALCIUM CARBONATE 500 MG (TUMS) TAB.CHEW PO PRN (19:15)
[2022-04-29] MEDS ORDERED: MILK OF MAGNESIA 400 MG/5 ML 30 ML UDC PO PRN (19:15)
[2022-04-29] MEDS ORDERED: LACTULOSE SYRUP 10GM/15ML (ENULOSE) 30ML UDC PO PRN (19:15)
[2022-04-29] MEDS ORDERED: PATIENT MAY USE OWN MEDS, ALL PO SCH (19:15)
[2022-04-29] MEDS ORDERED: BISACODYL 10 MG SUPP (DULCOLAX) PR PRN (19:15)
[2022-04-29] MEDS ORDERED: ACETAMINOPHEN 325 MG TABLET PO PRN (19:15)
[2022-04-29] MEDS ORDERED: MELATONIN 3 MG TABLET PO PRN (19:15)
[2022-04-29] MEDS ORDERED: polyethylene glycoL POWDER 17 GM (MIRALAX) PACK PO PRN (19:15)
[2022-04-29] MEDS ORDERED: ONDANSETRON 4 MG (ZOFRAN) ORAL DISSOLVE TAB PO PRN (19:15)
[2022-04-29] MEDS ORDERED: ANTACID SUSP 30 ML UDC (MYLANTA) PO PRN (19:15)
[2022-04-29] MEDS ORDERED: ONDANSETRON 4 MG/2 ML (SDV) Z0FRAN IV PRN (19:15)
[2022-04-29 19:30] VITALS: BP 118/61
[2022-04-29] MEDS: inSUlin ASPART (NovoLOG) 1 UNIT/0.01 ML (CHARGE PER UNIT) SC SCH (21:22)
[2022-04-29] MEDS: SENNOSIDES 8.6 MG (SENOKOT) TAB PO SCH (21:23)
[2022-04-29] MEDS: MONTELUKAST 10 MG (SINGULAIR) TAB PO SCH (21:24)
[2022-04-29] MEDS: DOCUSATE SODIUM 100 MG (COLACE) CAP PO SCH (21:24)
[2022-04-29] MEDS: APIXABAN 5 MG (ELIQUIS) TABLET PO SCH (21:32)
[2022-04-29] MEDS: RT--FLUTICASONE/SALMETEROL 232-14 (AIRDUO RespiCLICK) IH SCH (22:14)
[2022-04-29] MEDS ORDERED: METF-397 PO (23:18)
[2022-04-29] MEDS ORDERED: BUME1TAB8 PO (23:18)
[2022-04-29] MEDS ORDERED: BUME2TAB7 PO (23:18)
[2022-04-29] MEDS ORDERED: ALLO100T PO (23:18)
[2022-04-29] MEDS ORDERED: CYAN100088 PO (23:25)
[2022-04-29 23:45] VITALS: BP 146/77
[2022-04-30 03:20] VITALS: BP 105/58
[2022-04-30] MEDS: inSUlin ASPART (NovoLOG) 1 UNIT/0.01 ML (CHARGE PER UNIT) SC SCH ×4 (05:37→20:26)
[2022-04-30 06:17] LABS: BASOPHILS % (AUTO) 0 % (0-10); EOSINOPHILS # (AUTO) 0.1 10^3/uL (0.0-0.3); EOSINOPHILS % (AUTO) 1 % (0-10); HEMATOCRIT 37 % (40-54); HEMOGLOBIN 12.2 g/dL (13.3-17.7); LYMPHOCYTES # (AUTO) 1.2 10^3/uL (1.0-4.0); LYMPHOCYTES % (AUTO) 13 % (12-44); MEAN CORPUSCULAR HEMOGLOBIN 29 pg (25-34); MEAN CORPUSCULAR HGB CONC 33 g/dL (32-36); MEAN CORPUSCULAR VOLUME 90 fL (80-99); MEAN PLATELET VOLUME 9.7 fL (9.0-12.2); MONOCYTES # (AUTO) 0.9 10^3/uL (0.0-1.0); MONOCYTES % (AUTO) 9 % (0-12); NEUTROPHILS # (AUTO) 7.2 10^3/uL (1.8-7.8); NEUTROPHILS % (AUTO) 77 % (42-75); PLATELET COUNT 242 10^3/uL (130-400); WHITE BLOOD COUNT 9.4 10^3/uL (4.3-11.0)
[2022-04-30 06:43] LABS: CHOLESTEROL 102 MG/DL (< 200); HDL CHOLESTEROL 36 MG/DL (40-60); TRIGLYCERIDES 48 MG/DL (<150); VLDL CHOLESTEROL 10 MG/DL (5-40)
[2022-04-30 07:50] LABS: CREATININE SERUM 0.89 MG/DL (0.60-1.30); POTASSIUM 3.9 MMOL/L (3.6-5.0)
[2022-04-30 08:00] VITALS: BP 116/70
[2022-04-30] MEDS ORDERED: UMECLIDINIUM BROMIDE (INCRUSE ELLIPTA) 7'S IH SCH (08:00)
[2022-04-30] MEDS: RT-ALBUTEROL/IPRATROPIUM 3 ML (DUONEB) VIAL INH SCH ×3 (08:24→21:23)
[2022-04-30] MEDS: RT--FLUTICASONE/SALMETEROL 232-14 (AIRDUO RespiCLICK) IH SCH ×2 (08:28→21:36)
[2022-04-30] MEDS ORDERED: FUROSEMIDE 40 MG/4 ML INJ (LASIX) IVP ONE (09:15)
[2022-04-30] MEDS: SENNOSIDES 8.6 MG (SENOKOT) TAB PO SCH ×2 (09:22→20:11)
[2022-04-30] MEDS: DOCUSATE SODIUM 100 MG (COLACE) CAP PO SCH ×2 (09:22→20:11)
[2022-04-30] MEDS: APIXABAN 5 MG (ELIQUIS) TABLET PO SCH ×2 (09:22→20:11)
[2022-04-30 11:55] VITALS: BP 122/64
[2022-04-30] MEDS ORDERED: predniSONE 20 MG TAB PO ONE (14:00)
--- NOTE | 2022-04-30 14:07 | History & Physical-Hospitalist ---
History of Present Illness HPI/Chief Complaint Ricardo Durham is an 86 year old male with PMH HTN, T2DM, HLD, CAD, AFib, COPD, pulmonary fibrosis, dementia, obesity, who presented with shortness of breath. He has chronic respiratory failure and uses 8-15 L at home. His daughter is present and says he usually uses 12-13 L and he drops in the 70s when he gets up to walk. He also reports chest tightness. He denies fevers and chills. He denies abdominal pain, nausea, vomiting. He has some leg swelling, but says it has been worse. We discussed goals of care. He wants to be DNR/DNI. He does not think hospice care is necessary. I informed him of the benefits or hospice care and his daughter will be here in the morning to get some info from palliative care. Source: patient, family Exam Limitations: no limitations Date Seen 04/30/22 Time Seen by a Provider: 10:35 Attending Physician Mona Madrigal Aprn PCP Admitting Physician: Te Norwood MD Attending Physician: Te Norwood MD Referring Physician Date of Admission Apr 29, 2022 at 17:43 Home Medications & Allergies Home Medications Reviewed patient Home Medication Reconciliation performed by pharmacy medication reconciliations cad technician and/or nursing. Patients Allergies have been reviewed. Allergies Allergies Coded Allergies No Known Allergies (Unverified Allergy, Unknown, 07/30/18) Past Okbujgd-Eghzsd-Qymicw Hx Patient Social History Tobacco Use?: No Smoking Status: Former Smoker Smokeless Tobacco Frequency: Never a User Use of E-Cig and/or Vaping dev: No Substance use?: No Alcohol Use?: No Pt feels they are or have been: No Immunizations Up To Date Date of Influenza Vaccine: Mar 29, 2022 First/Initial COVID19 Vaccinat: 06/12/20 Second COVID19 Vaccination Bala: 07/16/20 Tetanus Booster (TDap): Unknown Seasonal Allergies Seasonal Allergies: No Current Status Advance Directives: Yes Communicates: Verbally Primary Language: Armenian Preferred Spoken Language: Armenian Is interpretation needed?: No Sensory deficits: Vision impairment Implanted or Applied Medical D: None Past Medical History Surgeries: Adenoidectomy COPD, Pulmonary Fibrosis Atrial Fibrillation, High Cholesterol, Hypertension, Syncope Dementia, Vertigo Hiatal Hernia Diabetes, Insulin dep Macular Degeneration Skin Blood Disorders: No Family Medical History Cancer, Other Conditions/Hx Review of Systems Constitutional: weakness EENTM: no symptoms reported Respiratory: short of breath Cardiovascular: no symptoms reported Gastrointestinal: no symptoms reported Physical Exam Physical Exam Vital Signs Vital Signs - First Documented 04/29/22 04/29/22 14:58 20:02 Temp 36.5 Pulse 79 Resp 17 B/P (MAP) 126/72 (90) Pulse Ox 99 O2 Delivery Nasal Cannula O2 Flow Rate 8.00 FiO2 50 Capillary Refill : Less Than 3 Seconds Height, Weight, BMI Height: 5'8.00" Weight: 223lbs. 0.8oz. 101.051255uy; 30.18 BMI Method:Stated General Appearance: No Apparent Distress, Chronically ill, Obese HEENT: PERRL/EOMI, Pharynx Normal Neck: Normal Inspection, Supple Respiratory: No Respiratory Distress, Crackles, Decreased Breath Sounds Cardiovascular: Regular Rate, Rhythm, No Murmur Gastrointestinal: Normal Bowel Sounds, Non Tender, Soft Extremity: Normal Inspection, Pedal Edema Neurologic/Psychiatric: Alert, Normal Mood/Affect Skin: Normal Color, Warm/Dry Results Results/Procedures Labs Laboratory Tests 04/29/22 15:26 04/30/22 05:52 Patient resulted labs reviewed. Imaging: Reviewed Imaging Report Assessment/Plan Admission Diagnosis Acute on chronic respiratory failure with hypoxia Admission Status: Observation Assessment and Plan Acute on chronic respiratory failure with hypoxia End stage COPD Pulmonary fibrosis Acute on chronic HFpEF Poor prognosis Goals of care discussion Requiring Vapotherm, wean as able Continue Lasix Add steroids MAT protocol Palliative care consulted T2DM with hypoglycemia Decreased dose Levemir Sliding scale insulin HTN HLD CAD AFib Dementia Continue home meds DVT prophylaxis: already receiving therapeutic anticoagulation Diagnosis/Problems Diagnosis/Problems (1) Acute on chronic respiratory failure with hypoxia Status: Acute (2) Acute on chronic heart failure with preserved ejection fraction (HFpEF) Status: Acute (3) COPD (chronic obstructive pulmonary disease) Status: Acute Qualifiers: COPD type: COPD with acute exacerbation Qualified Codes: J44.1 - Chronic obstructive pulmonary disease with (acute) exacerbation (4) Pulmonary fibrosis Status: Acute (5) Poor prognosis Status: Acute (6) Goals of care, counseling/discussion Status: Acute TE NORWOOD MD Apr 30, 2022 14:07
[2022-04-30 16:00] VITALS: BP 118/75
[2022-04-30 19:33] VITALS: BP 102/61
[2022-04-30] MEDS ORDERED: ALLOPURINOL 100 MG (ZYLOPRIM) TAB PO SCH (20:00)
[2022-04-30] MEDS: MONTELUKAST 10 MG (SINGULAIR) TAB PO SCH (20:11)
[2022-04-30 23:47] VITALS: BP 108/72
[2022-05-01] MEDS ORDERED: LORazepam INJ 2 MG/ML (ATIVAN) VIAL IVP STA (01:37)
[2022-05-01] MEDS: RT-ALBUTEROL/IPRATROPIUM 3 ML (DUONEB) VIAL INH SCH (02:38)
[2022-05-01 03:35] VITALS: BP 147/96
[2022-05-01] MEDS: inSUlin ASPART (NovoLOG) 1 UNIT/0.01 ML (CHARGE PER UNIT) SC SCH (05:30)
[2022-05-01 05:50] LABS: BASOPHILS % (AUTO) 0 % (0-10); EOSINOPHILS % (AUTO) 0 % (0-10); HEMATOCRIT 37 % (40-54); HEMOGLOBIN 12.3 g/dL (13.3-17.7); LYMPHOCYTES # (AUTO) 0.8 10^3/uL (1.0-4.0); LYMPHOCYTES % (AUTO) 7 % (12-44); MEAN CORPUSCULAR HEMOGLOBIN 29 pg (25-34); MEAN CORPUSCULAR HGB CONC 33 g/dL (32-36); MEAN CORPUSCULAR VOLUME 88 fL (80-99); MEAN PLATELET VOLUME 10.1 fL (9.0-12.2); MONOCYTES # (AUTO) 0.7 10^3/uL (0.0-1.0); MONOCYTES % (AUTO) 7 % (0-12); NEUTROPHILS # (AUTO) 8.9 10^3/uL (1.8-7.8); NEUTROPHILS % (AUTO) 85 % (42-75); PLATELET COUNT 258 10^3/uL (130-400); WHITE BLOOD COUNT 10.5 10^3/uL (4.3-11.0)
[2022-05-01 06:13] LABS: CALCIUM 9.1 MG/DL (8.5-10.1); CREATININE SERUM 1.05 MG/DL (0.60-1.30); POTASSIUM 4.4 MMOL/L (3.6-5.0)
[2022-05-01] MEDS ORDERED: predniSONE 20 MG TAB PO SCH (07:00)
== END 2022-05-01 05:51 | disposition left against medical advice (07) ==
LOC: EDUNIT# 14:48 → ER 14:52 → UNDOADMOB 17:43 → 4TH 17:43 → UNDODISOB 05-01 05:51
PROVIDERS: ADMIT Internal Medicine; ATTEND Internal Medicine
DX: J96.21 Acute and chronic respiratory failure with hypoxia (principal); J44.9 Chronic obstructive pulmonary disease, unspecified; J84.10 Pulmonary fibrosis, unspecified; I11.0 Hypertensive heart disease with heart failure; I50.33 Acute on chronic diastolic (congestive) heart failure; E11.649 Type 2 diabetes mellitus with hypoglycemia without coma; E78.5 Hyperlipidemia, unspecified; I25.10 Atherosclerotic heart disease of native coronary artery without angina pectoris; I48.91 Unspecified atrial fibrillation; F03.90 Unspecified dementia, unspecified severity, without behavioral disturbance, psychotic disturbance, mood disturbance, and anxiety; Z87.891 Personal history of nicotine dependence; Z79.4 Long term (current) use of insulin
CPT/HCPCS: 36415; 71045; 80048; 80053; 80061; 82947; 83735; 83874; 83880; 84145; 84484; 85007; 85025; 85027; 85610; 85730; 86141; 93005; 93041; 94640; 96375; 96376; G0378